=== PATIENT | female | born 1940 | race Caucasian/White ===

== ENCOUNTER 2016-10-29 17:08 | Emergency (ER) | payer MEDICARE, BC ==
[2016-10-29] MEDS ORDERED: SODIUM CHLORIDE 0.9% 1,000 ML IV STA (17:28)
[2016-10-29] MEDS ORDERED: diphenhydrAMINE 50 MG/ML 1 ML VIAL IVP STA (17:29)
[2016-10-29] MEDS ORDERED: LORazepam 2 MG/ML SYRINGE IV STA (17:29)
--- NOTE | 2016-10-29 17:45 | ED ---
General Adult HPI - General Chief complaint: Arrhythmia/Palpitations Stated complaint: irreg heart beat,sick Time Seen by Provider: 10/29/16 17:28 Source: patient, RN notes reviewed, old records reviewed Mode of arrival: ambulatory Limitations: no limitations - History of Present Illness Initial comments: This is a 76-year-old female here for evaluation of palpitations. Patient states she is feeling her heartbeat in her chest. This is been going on for about 3 weeks. Patient's family doctor or doctor's feeling with stress and anxiety and palpitations. Patient was set up for an outpatient stress test earlier today she had an chemical stress test and states that her palpitations have continued dusts coming to the emergency room today. She denies chest pain no shortness of breath is feeling her heart beat irregularly in her chest. She is not taking medication for this. She has no recent fevers cough or congestion , no central portion of bowel pain no nausea vomiting or diarrhea. - Related Data Home Medications Medication Instructions Recorded Confirmed ALPRAZolam [Xanax] 1 mg PO HS 09/06/14 10/29/16 Aspirin 81 mg PO DAILY 09/06/14 10/29/16 Atenolol [Tenormin] 12.5 mg PO DAILY 09/06/14 10/29/16 Diltiazem HCl [Diltiazem ER] 120 mg PO DAILY 09/06/14 10/29/16 Cholecalciferol [Vitamin D3] 1,000 unit PO DAILY 10/29/16 10/29/16 Allergies Allergy/AdvReac Type Severity Reaction Status Date / Time clindamycin HCl Allergy Rash/Hives Verified 10/29/16 18:38 [From Cleocin] clindamycin palmitate HCl Allergy Rash/Hives Verified 10/29/16 18:38 [From Cleocin] clindamycin phosphate Allergy Rash/Hives Verified 10/29/16 18:38 [From Cleocin] Sulfa (Sulfonamide Allergy Rash/Hives Verified 10/29/16 18:38 Antibiotics) Review of Systems ROS Statement: Those systems with pertinent positive or pertinent negative responses have been documented in the HPI. ROS Other: All systems not noted in ROS Statement are negative. Past Medical History Past Medical History: Chest Pain / Angina, Hypertension Additional Past Medical History / Comment(s): irreg heart beat History of Any Multi-Drug Resistant Organisms: None Reported Past Surgical History: Adenoidectomy, Cholecystectomy, Tonsillectomy Additional Past Surgical History / Comment(s): cataracts, right foot, Past Psychological History: No Psychological Hx Reported Smoking Status: Never smoker Past Alcohol Use History: None Reported Past Drug Use History: None Reported General Exam Limitations: no limitations General appearance: alert, in no apparent distress, anxious Head exam: Present: atraumatic, normocephalic, normal inspection Eye exam: Present: normal appearance, PERRL, EOMI. Absent: scleral icterus, conjunctival injection, periorbital swelling ENT exam: Present: normal exam, mucous membranes moist Neck exam: Present: normal inspection. Absent: tenderness, meningismus, lymphadenopathy Respiratory exam: Present: normal lung sounds bilaterally. Absent: respiratory distress, wheezes, rales, rhonchi, stridor Cardiovascular Exam: Present: regular rate, normal rhythm, normal heart sounds. Absent: systolic murmur, diastolic murmur, rubs, gallop, clicks GI/Abdominal exam: Present: soft, normal bowel sounds. Absent: distended, tenderness, guarding, rebound, rigid Extremities exam: Present: normal inspection, full ROM, normal capillary refill. Absent: tenderness, pedal edema, joint swelling, calf tenderness Back exam: Present: normal inspection Neurological exam: Present: alert, oriented X3, CN II-XII intact Psychiatric exam: Present: normal affect, normal mood Skin exam: Present: warm, dry, intact, normal color. Absent: rash Course Vital Signs 10/29/16 10/29/16 10/29/16 17:21 17:39 18:01 Temperature 98.0 F Pulse Rate 78 Pulse Rate [ 76 Right Supine Pulse Oximetery ] Respiratory 18 Rate Blood Pressure 184/82 133/65 O2 Sat by Pulse 98 Oximetry - Reevaluation(s) Reevaluation #1: 10/29/16 18:11 Patient is in no acute distress EKG Findings - EKG Comments: EKG Findings:: EKG shows sinus rhythm with PVCs, rate of 73, WA 144, QRS 80, QTC 429 Medical Decision Making - Medical Decision Making 36 female EEI with palpitations PVCs, patient has no malignant rhythm, stress test today was done in the no abnormalities noted, patient's labwork is normal can be discharged home - Lab Data Result diagrams: 10/29/16 17:40 10/29/16 17:40 Lab Results 10/29/16 10/29/16 10/29/16 Range/Units 17:40 17:40 17:40 WBC 7.0 (3.8-10.6) k/uL RBC 5.18 (3.80-5.40) m/uL Hgb 15.1 (11.4-16.0) gm/dL Hct 45.5 (34.0-46.0) % MCV 87.8 (80.0-100.0) fL MCH 29.2 (25.0-35.0) pg MCHC 33.3 (31.0-37.0) g/dL RDW 13.6 (11.5-15.5) % Plt Count 227 (150-450) k/uL Neutrophils % 68 % Lymphocytes % 21 % Monocytes % 5 % Eosinophils % 3 % Basophils % 0 % Neutrophils # 4.8 (1.3-7.7) k/uL Lymphocytes # 1.5 (1.0-4.8) k/uL Monocytes # 0.4 (0-1.0) k/uL Eosinophils # 0.2 (0-0.7) k/uL Basophils # 0.0 (0-0.2) k/uL Sodium 139 (137-145) mmol/L Potassium 4.2 (3.5-5.1) mmol/L Chloride 101 (98-107) mmol/L Carbon Dioxide 26 (22-30) mmol/L Anion Gap 12 mmol/L BUN 17 (7-17) mg/dL Creatinine 0.71 (0.52-1.04) mg/dL Est GFR (MDRD) Af Amer >60 (>60 ml/min/1.73 sqM) Est GFR (MDRD) Non-Af >60 (>60 ml/min/1.73 sqM) Glucose 96 (74-99) mg/dL Calcium 9.7 (8.4-10.2) mg/dL Phosphorus 4.7 H (2.5-4.5) mg/dL Magnesium 2.2 (1.6-2.3) mg/dL Total Bilirubin 0.8 (0.2-1.3) mg/dL AST 32 (14-36) U/L ALT 34 (9-52) U/L Alkaline Phosphatase 95 (38-126) U/L Total Creatine Kinase 62 (30-135) U/L Total Protein 7.5 (6.3-8.2) g/dL Albumin 4.6 (3.5-5.0) g/dL Disposition Clinical Impression: Palpitations, PVC (premature ventricular contraction) Disposition: HOME SELF-CARE Condition: Fair Instructions: Palpitations (ED) Referrals: Stalin Duong MD [Primary Care Provider] - 1-2 days
[2016-10-29] MEDS ORDERED: METOPROLOL TARTRATE 5 MG/5 ML VIAL IVP STA (17:56)
[2016-10-29 17:58] LABS: Basophils % (A) 0 %; CH 29.6; CHCM 33.9; Eosinophils # (A) 0.2 k/uL (0-0.7); Eosinophils % (A) 3 %; HCT 45.5 % (34.0-46.0); HDW 2.65; HGB 15.1 gm/dL (11.4-16.0); Luc # (Auto) 0.24; Luc % (Auto) 3; Lymphocytes # (A) 1.5 k/uL (1.0-4.8); Lymphocytes % (A) 21 %; MCH 29.2 pg (25.0-35.0); MCHC 33.3 g/dL (31.0-37.0); MCV 87.8 fL (80.0-100.0); Mean Platelet Volume 8.5; Monocytes # (A) 0.4 k/uL (0-1.0); Monocytes % (A) 5 %; Neutrophils # (A) 4.8 k/uL (1.3-7.7); Neutrophils % (A) 68 %; RBC 5.18 m/uL (3.80-5.40); RDW 13.6 % (11.5-15.5); WBC (Perox) 7.02
[2016-10-29 18:09] LABS: ALT 34 U/L (9-52); AST 32 U/L (14-36); Alkaline Phosphatase 95 U/L (38-126); Anion Gap 12 mmol/L; Blood Urea Nitrogen 17 mg/dL (7-17); Calcium 9.7 mg/dL (8.4-10.2); Carbon Dioxide 26 mmol/L (22-30); Chloride 101 mmol/L (98-107); Glucose 96 mg/dL (74-99); Magnesium 2.2 mg/dL (1.6-2.3); Non-African American GFR(MDRD) >60 (>60 ml/min/1.73 sqM); Phosphorous 4.7 mg/dL (2.5-4.5); Potassium 4.2 mmol/L (3.5-5.1); Sodium 139 mmol/L (137-145); Total Bilirubin 0.8 mg/dL (0.2-1.3); Total Protein 7.5 g/dL (6.3-8.2)
[2016-10-29 18:23] LABS: Creatine Kinase 62 U/L (30-135)
[2016-10-29 18:36] LABS: Creatine Kinase MB 0.5 ng/mL (0.0-2.4); Troponin I <0.012 ng/mL (0.000-0.034)
[2016-10-29 19:02] VITALS: BP 130/60; PULSE 65; RESP 16; TEMP 97.2
== END 2016-10-29 19:02 | disposition home or self-care (01) ==
LOC: EC 17:08
DX: R00.2 Palpitations (principal); I49.3 Ventricular premature depolarization; I10 Essential (primary) hypertension; F41.9 Anxiety disorder, unspecified; Z79.82 Long term (current) use of aspirin; Z79.899 Other long term (current) drug therapy; Z88.1 Allergy status to other antibiotic agents; Z88.2 Allergy status to sulfonamides
CPT/HCPCS: 99285; 96374; 96375; 36415; 80053; 82550; 82553; 83735; 84100; 84484; 85025; J2060; J1200; 93005

== ENCOUNTER 2016-11-01 23:55 | Emergency (ER) | payer MEDICARE, BC ==
[2016-11-02 00:19] VITALS: RESP 18
[2016-11-02 01:11] LABS: Basophils % (A) 0 %; CH 28.9; Eosinophils # (A) 0.2 k/uL (0-0.7); Eosinophils % (A) 2 %; HCT 44.3 % (34.0-46.0); HDW 2.61; HGB 14.4 gm/dL (11.4-16.0); Luc # (Auto) 0.26; Luc % (Auto) 3; Lymphocytes # (A) 1.6 k/uL (1.0-4.8); Lymphocytes % (A) 20 %; MCH 28.7 pg (25.0-35.0); MCHC 32.5 g/dL (31.0-37.0); MCV 88.1 fL (80.0-100.0); Mean Platelet Volume 7.4; Monocytes # (A) 0.4 k/uL (0-1.0); Monocytes % (A) 5 %; Neutrophils # (A) 5.7 k/uL (1.3-7.7); Neutrophils % (A) 70 %; RBC 5.03 m/uL (3.80-5.40); RDW 13.4 % (11.5-15.5); WBC 8.2 k/uL (3.8-10.6); WBC (Perox) 8.49
[2016-11-02 01:19] LABS: ALT 29 U/L (9-52); AST 30 U/L (14-36); Alkaline Phosphatase 85 U/L (38-126); Anion Gap 10 mmol/L; Blood Urea Nitrogen 18 mg/dL (7-17); Calcium 8.9 mg/dL (8.4-10.2); Carbon Dioxide 25 mmol/L (22-30); Chloride 104 mmol/L (98-107); Glucose 104 mg/dL (74-99); Non-African American GFR(MDRD) >60 (>60 ml/min/1.73 sqM); Potassium 3.9 mmol/L (3.5-5.1); Sodium 139 mmol/L (137-145); Total Bilirubin 0.7 mg/dL (0.2-1.3)
[2016-11-02 01:22] LABS: Partial Thromboplastin Time 25.1 sec (22.0-30.0); Prothrombin Time 10.5 sec (9.0-12.0)
--- NOTE | 2016-11-02 02:20 | XR ---
EXAM: XR Chest, 2 Views. CLINICAL HISTORY: Difficulty breathing TECHNIQUE: Frontal and lateral views of the chest. COMPARISON: 07/29/2013 FINDINGS: Lungs: Bilateral pulmonary hyperinflation. Linear density in the lateral left lung base is compatible with atelectasis or scar. The lungs are otherwise clear. Pleural space: Unremarkable. No pneumothorax. Heart: Stable cardiomediastinal silhouette. Mediastinum: See above. Bones/joints: No acute osseous abnormality. IMPRESSION: No acute cardiopulmonary process.
--- NOTE | 2016-11-02 02:24 | ED ---
Recheck HPI - General Chief Complaint: Recheck/Abnormal Lab/Rx Stated Complaint: Revisit-Feet Swelling Time Seen by Provider: 11/02/16 00:36 Source: patient Mode of arrival: ambulatory Limitations: no limitations - History of Present Illness Initial Comments: This patient is a 76-year-old woman who presents because her blood pressure was elevated at home. The patient states that she had been having some irregular heartbeat last week, gone to see her dashboard developer and had a stress test done last week. She is to follow-up on for the results. The patient however had noticed that her blood pressure was high at home tonight and she retook it and it was still high and she felt she should be evaluated. In the review of systems, the patient notes she has been having some bilateral leg swelling going on for a week to 2 and also some abdominal bloating. Complaint: other -: hour(s) Initial Visit For: other Returns Today for: other Symptoms Since Prior Visit: no new symptoms - Related Data Home Medications Medication Instructions Recorded Confirmed ALPRAZolam [Xanax] 1 mg PO HS 09/06/14 11/02/16 Aspirin 81 mg PO DAILY 09/06/14 11/02/16 Atenolol [Tenormin] 12.5 mg PO DAILY 09/06/14 11/02/16 Diltiazem HCl [Diltiazem ER] 120 mg PO DAILY 09/06/14 11/02/16 Cholecalciferol [Vitamin D3] 1,000 unit PO DAILY 10/29/16 11/02/16 Allergies Allergy/AdvReac Type Severity Reaction Status Date / Time clindamycin HCl Allergy Rash/Hives Verified 11/02/16 00:19 [From Cleocin] clindamycin palmitate HCl Allergy Rash/Hives Verified 11/02/16 00:19 [From Cleocin] clindamycin phosphate Allergy Rash/Hives Verified 11/02/16 00:19 [From Cleocin] Sulfa (Sulfonamide Allergy Rash/Hives Verified 11/02/16 00:19 Antibiotics) Review of Systems ROS Statement: Those systems with pertinent positive or pertinent negative responses have been documented in the HPI. ROS Other: All systems not noted in ROS Statement are negative. Constitutional: Denies: fever, chills, weakness Respiratory: Denies: cough, dyspnea Cardiovascular: Reports: edema. Denies: chest pain, palpitations, orthopnea, syncope Gastrointestinal: Reports: other (Bloating). Denies: abdominal pain, vomiting, diarrhea Genitourinary: Denies: dysuria, frequency, hematuria Musculoskeletal: Denies: back pain Skin: Denies: rash Neurological: Denies: headache, weakness Psychiatric: Reports: anxiety Past Medical History Past Medical History: Chest Pain / Angina, Hypertension Additional Past Medical History / Comment(s): irreg heart beat History of Any Multi-Drug Resistant Organisms: None Reported Past Surgical History: Adenoidectomy, Cholecystectomy, Tonsillectomy Additional Past Surgical History / Comment(s): cataracts, right foot, Past Psychological History: No Psychological Hx Reported Smoking Status: Never smoker Past Alcohol Use History: None Reported Past Drug Use History: None Reported General Exam Limitations: no limitations General appearance: alert, in no apparent distress Head exam: Present: atraumatic, normocephalic Eye exam: Present: normal appearance. Absent: scleral icterus, conjunctival injection Neck exam: Present: normal inspection, full ROM Respiratory exam: Present: normal lung sounds bilaterally. Absent: respiratory distress, wheezes, rales, rhonchi, stridor Cardiovascular Exam: Present: regular rate, normal rhythm, normal heart sounds. Absent: systolic murmur, diastolic murmur, rubs, gallop GI/Abdominal exam: Present: soft. Absent: distended, tenderness, guarding, rebound Extremities exam: Present: normal inspection, normal capillary refill. Absent: pedal edema, calf tenderness Back exam: Present: normal inspection. Absent: CVA tenderness (R), CVA tenderness (L) Neurological exam: Present: alert Skin exam: Present: warm, dry, intact, normal color. Absent: rash Course Vital Signs 11/02/16 11/02/16 11/02/16 00:12 01:47 02:07 Temperature 97.6 F Pulse Rate 91 85 71 Respiratory 18 18 18 Rate Blood Pressure 189/90 134/59 127/56 O2 Sat by Pulse 96 96 97 Oximetry 11/02/16 02:47 Temperature 96.9 F L Pulse Rate 72 Respiratory 18 Rate Blood Pressure 126/59 O2 Sat by Pulse 97 Oximetry Medical Decision Making - Lab Data Result diagrams: 11/02/16 01:03 11/02/16 01:03 Lab Results 11/02/16 11/02/16 11/02/16 Range/Units 01:03 01:03 01:03 WBC 8.2 (3.8-10.6) k/uL RBC 5.03 (3.80-5.40) m/uL Hgb 14.4 (11.4-16.0) gm/dL Hct 44.3 (34.0-46.0) % MCV 88.1 (80.0-100.0) fL MCH 28.7 (25.0-35.0) pg MCHC 32.5 (31.0-37.0) g/dL RDW 13.4 (11.5-15.5) % Plt Count 208 (150-450) k/uL Neutrophils % 70 % Lymphocytes % 20 % Monocytes % 5 % Eosinophils % 2 % Basophils % 0 % Neutrophils # 5.7 (1.3-7.7) k/uL Lymphocytes # 1.6 (1.0-4.8) k/uL Monocytes # 0.4 (0-1.0) k/uL Eosinophils # 0.2 (0-0.7) k/uL Basophils # 0.0 (0-0.2) k/uL PT 10.5 (9.0-12.0) sec INR 1.0 (<1.1) APTT 25.1 (22.0-30.0) sec D-Dimer <0.17 (<0.60) mg/L FEU Sodium 139 (137-145) mmol/L Potassium 3.9 (3.5-5.1) mmol/L Chloride 104 (98-107) mmol/L Carbon Dioxide 25 (22-30) mmol/L Anion Gap 10 mmol/L BUN 18 H (7-17) mg/dL Creatinine 0.69 (0.52-1.04) mg/dL Est GFR (MDRD) Af Amer >60 (>60 ml/min/1.73 sqM) Est GFR (MDRD) Non-Af >60 (>60 ml/min/1.73 sqM) Glucose 104 H (74-99) mg/dL Calcium 8.9 (8.4-10.2) mg/dL Total Bilirubin 0.7 (0.2-1.3) mg/dL AST 30 (14-36) U/L ALT 29 (9-52) U/L Alkaline Phosphatase 85 (38-126) U/L Troponin I (0.000-0.034) ng/mL NT-Pro-B Natriuret Pep pg/mL Total Protein 7.0 (6.3-8.2) g/dL Albumin 4.0 (3.5-5.0) g/dL 11/02/16 11/02/16 Range/Units 01:03 01:03 WBC (3.8-10.6) k/uL RBC (3.80-5.40) m/uL Hgb (11.4-16.0) gm/dL Hct (34.0-46.0) % MCV (80.0-100.0) fL MCH (25.0-35.0) pg MCHC (31.0-37.0) g/dL RDW (11.5-15.5) % Plt Count (150-450) k/uL Neutrophils % % Lymphocytes % % Monocytes % % Eosinophils % % Basophils % % Neutrophils # (1.3-7.7) k/uL Lymphocytes # (1.0-4.8) k/uL Monocytes # (0-1.0) k/uL Eosinophils # (0-0.7) k/uL Basophils # (0-0.2) k/uL PT (9.0-12.0) sec INR (<1.1) APTT (22.0-30.0) sec D-Dimer (<0.60) mg/L FEU Sodium (137-145) mmol/L Potassium (3.5-5.1) mmol/L Chloride (98-107) mmol/L Carbon Dioxide (22-30) mmol/L Anion Gap mmol/L BUN (7-17) mg/dL Creatinine (0.52-1.04) mg/dL Est GFR (MDRD) Af Amer (>60 ml/min/1.73 sqM) Est GFR (MDRD) Non-Af (>60 ml/min/1.73 sqM) Glucose (74-99) mg/dL Calcium (8.4-10.2) mg/dL Total Bilirubin (0.2-1.3) mg/dL AST (14-36) U/L ALT (9-52) U/L Alkaline Phosphatase (38-126) U/L Troponin I <0.012 (0.000-0.034) ng/mL NT-Pro-B Natriuret Pep 472 pg/mL Total Protein (6.3-8.2) g/dL Albumin (3.5-5.0) g/dL - EKG Data -: EKG Interpreted by Me EKG shows normal: sinus rhythm, axis (Normal), intervals (Normal), QRS complexes (Normal) Rate: normal (Rate 75 bpm) Interpretation: nonspecific ST-T wave changes Disposition Clinical Impression: Hypertension Disposition: HOME SELF-CARE Condition: Fair Instructions: Hypertension (ED) Referrals: Stalin Duong MD [Primary Care Provider] - 1-2 days
[2016-11-02 02:48] VITALS: BP 126/59; PULSE 72; TEMP 96.9
== END 2016-11-02 02:47 | disposition home or self-care (01) ==
LOC: EC 23:55
DX: I10 Essential (primary) hypertension (principal); F41.9 Anxiety disorder, unspecified; Z88.2 Allergy status to sulfonamides; Z88.1 Allergy status to other antibiotic agents; Z79.82 Long term (current) use of aspirin; Z79.899 Other long term (current) drug therapy
CPT/HCPCS: 36415; 71020; 80053; 83880; 84484; 85025; 85379; 85610; 85730; 93005; 99284

== ENCOUNTER 2017-03-08 17:20 | Observation (INO) | payer MEDICARE, BC ==
[2017-03-08] MEDS ORDERED: LABETALOL 5 MG/ML VIAL MDV IVP STA (17:56)
--- NOTE | 2017-03-08 18:16 | ED ---
General Adult HPI - General Chief complaint: Chest Pain Stated complaint: Intermittent CHest Pain Time Seen by Provider: 03/08/17 17:46 Source: patient, RN notes reviewed Mode of arrival: ambulatory Limitations: no limitations - History of Present Illness Initial comments: Patient 76-year-old female who presents emergency room today with a chief complaint of chest pain that began yesterday. She does admit that she's had 2 episodes of chest pain one earlier today just approximately 2 hours ago. She describes it as a aching type pain that she rates a 3/10 located in the middle of her chest. Denies any radiation. States that she believes she was up just doing regular housework when it started. She states she sat down and within 10 minutes it had gone away. She admits to a similar episode that occurred yesterday. She does admit that she has also had some bloating in her abdomen and feeling that she's been burping more. Patient denies any other complaints or associated symptoms at this time. Patient denies any recent fever, chills, shortness of breath, chest pain, back pain, abdominal pain, nausea or vomiting, numbness or tingling, dysuria or hematuria, constipation or diarrhea, headaches or visual changes, or any other complaints. - Related Data Home Medications Medication Instructions Recorded Confirmed ALPRAZolam [Xanax] 1 mg PO HS 09/06/14 03/08/17 Aspirin 81 mg PO DAILY 09/06/14 03/08/17 Diltiazem HCl [Diltiazem ER] 120 mg PO DAILY 09/06/14 03/08/17 Cholecalciferol [Vitamin D3] 1,000 unit PO DAILY 10/29/16 03/08/17 Allergies Allergy/AdvReac Type Severity Reaction Status Date / Time clindamycin HCl Allergy Rash/Hives Verified 03/08/17 17:42 [From Cleocin] clindamycin palmitate HCl Allergy Rash/Hives Verified 03/08/17 17:42 [From Cleocin] clindamycin phosphate Allergy Rash/Hives Verified 03/08/17 17:42 [From Cleocin] Sulfa (Sulfonamide Allergy Rash/Hives Verified 03/08/17 18:09 Antibiotics) Review of Systems ROS Statement: Those systems with pertinent positive or pertinent negative responses have been documented in the HPI. ROS Other: All systems not noted in ROS Statement are negative. Past Medical History Past Medical History: Chest Pain / Angina, Hypertension Additional Past Medical History / Comment(s): irreg heart beat History of Any Multi-Drug Resistant Organisms: None Reported Past Surgical History: Adenoidectomy, Cholecystectomy, Tonsillectomy Additional Past Surgical History / Comment(s): cataracts, right foot, Past Psychological History: Anxiety Smoking Status: Never smoker Past Alcohol Use History: None Reported Past Drug Use History: None Reported General Exam Limitations: no limitations Course Vital Signs 03/08/17 03/08/17 17:38 18:07 Temperature 98.3 F Pulse Rate 85 76 Respiratory 18 19 Rate Blood Pressure 193/80 166/76 O2 Sat by Pulse 95 96 Oximetry Medical Decision Making - Medical Decision Making Patient's EKG shows normal sinus rhythm. Labs reviewed and negative cardiac enzymes. Patient does admit to chest pain with exertion. Will be admitted to the hospital for serial enzymes. Patient wear the plan states understanding. - Lab Data Result diagrams: 03/08/17 18:01 03/08/17 18:01 Lab Results 03/08/17 03/08/17 03/08/17 Range/Units 18:01 18:01 18:01 WBC 6.9 (3.8-10.6) k/uL RBC 5.28 (3.80-5.40) m/uL Hgb 15.4 (11.4-16.0) gm/dL Hct 45.3 (34.0-46.0) % MCV 85.8 (80.0-100.0) fL MCH 29.2 (25.0-35.0) pg MCHC 34.1 (31.0-37.0) g/dL RDW 13.1 (11.5-15.5) % Plt Count 242 (150-450) k/uL Neutrophils % 69 % Lymphocytes % 19 % Monocytes % 5 % Eosinophils % 4 % Basophils % 0 % Neutrophils # 4.8 (1.3-7.7) k/uL Lymphocytes # 1.3 (1.0-4.8) k/uL Monocytes # 0.4 (0-1.0) k/uL Eosinophils # 0.3 (0-0.7) k/uL Basophils # 0.0 (0-0.2) k/uL PT (9.0-12.0) sec INR (<1.2) APTT (22.0-30.0) sec Sodium 139 (137-145) mmol/L Potassium 4.4 (3.5-5.1) mmol/L Chloride 104 (98-107) mmol/L Carbon Dioxide 26 (22-30) mmol/L Anion Gap 9 mmol/L BUN 16 (7-17) mg/dL Creatinine 0.69 (0.52-1.04) mg/dL Est GFR (MDRD) Af Amer >60 (>60 ml/min/1.73 sqM) Est GFR (MDRD) Non-Af >60 (>60 ml/min/1.73 sqM) Glucose 82 (74-99) mg/dL Calcium 9.3 (8.4-10.2) mg/dL Magnesium 2.2 (1.6-2.3) mg/dL Total Bilirubin 0.8 (0.2-1.3) mg/dL AST 32 (14-36) U/L ALT 33 (9-52) U/L Alkaline Phosphatase 90 (38-126) U/L Total Creatine Kinase 62 (30-135) U/L CK-MB (CK-2) 0.5 (0.0-2.4) ng/mL CK-MB (CK-2) Rel Index 0.8 Troponin I <0.012 (0.000-0.034) ng/mL Total Protein 7.1 (6.3-8.2) g/dL Albumin 4.4 (3.5-5.0) g/dL 03/08/17 Range/Units 18:01 WBC (3.8-10.6) k/uL RBC (3.80-5.40) m/uL Hgb (11.4-16.0) gm/dL Hct (34.0-46.0) % MCV (80.0-100.0) fL MCH (25.0-35.0) pg MCHC (31.0-37.0) g/dL RDW (11.5-15.5) % Plt Count (150-450) k/uL Neutrophils % % Lymphocytes % % Monocytes % % Eosinophils % % Basophils % % Neutrophils # (1.3-7.7) k/uL Lymphocytes # (1.0-4.8) k/uL Monocytes # (0-1.0) k/uL Eosinophils # (0-0.7) k/uL Basophils # (0-0.2) k/uL PT 10.4 (9.0-12.0) sec INR 1.0 (<1.2) APTT 25.1 (22.0-30.0) sec Sodium (137-145) mmol/L Potassium (3.5-5.1) mmol/L Chloride (98-107) mmol/L Carbon Dioxide (22-30) mmol/L Anion Gap mmol/L BUN (7-17) mg/dL Creatinine (0.52-1.04) mg/dL Est GFR (MDRD) Af Amer (>60 ml/min/1.73 sqM) Est GFR (MDRD) Non-Af (>60 ml/min/1.73 sqM) Glucose (74-99) mg/dL Calcium (8.4-10.2) mg/dL Magnesium (1.6-2.3) mg/dL Total Bilirubin (0.2-1.3) mg/dL AST (14-36) U/L ALT (9-52) U/L Alkaline Phosphatase (38-126) U/L Total Creatine Kinase (30-135) U/L CK-MB (CK-2) (0.0-2.4) ng/mL CK-MB (CK-2) Rel Index Troponin I (0.000-0.034) ng/mL Total Protein (6.3-8.2) g/dL Albumin (3.5-5.0) g/dL Disposition Clinical Impression: Chest pain Disposition: ADMITTED IP TO THIS [facility] Condition: Stable Referrals: Stalin Duong MD [Primary Care Provider] - 1-2 days Time of Disposition: 19:15
[2017-03-08 18:17] LABS: Basophils % (A) 0 %; CH 28.6; CHCM 33.5; Eosinophils # (A) 0.3 k/uL (0-0.7); Eosinophils % (A) 4 %; HCT 45.3 % (34.0-46.0); HDW 2.61; HGB 15.4 gm/dL (11.4-16.0); Luc # (Auto) 0.18; Luc % (Auto) 3; Lymphocytes # (A) 1.3 k/uL (1.0-4.8); Lymphocytes % (A) 19 %; MCH 29.2 pg (25.0-35.0); MCHC 34.1 g/dL (31.0-37.0); MCV 85.8 fL (80.0-100.0); Mean Platelet Volume 7.8; Monocytes # (A) 0.4 k/uL (0-1.0); Monocytes % (A) 5 %; Neutrophils # (A) 4.8 k/uL (1.3-7.7); Neutrophils % (A) 69 %; RBC 5.28 m/uL (3.80-5.40); RDW 13.1 % (11.5-15.5); WBC 6.9 k/uL (3.8-10.6); WBC (Perox) 6.42
[2017-03-08 18:22] LABS: ALT 33 U/L (9-52); AST 32 U/L (14-36); Alkaline Phosphatase 90 U/L (38-126); Anion Gap 9 mmol/L; Blood Urea Nitrogen 16 mg/dL (7-17); Calcium 9.3 mg/dL (8.4-10.2); Carbon Dioxide 26 mmol/L (22-30); Chloride 104 mmol/L (98-107); Glucose 82 mg/dL (74-99); Magnesium 2.2 mg/dL (1.6-2.3); Non-African American GFR(MDRD) >60 (>60 ml/min/1.73 sqM); Potassium 4.4 mmol/L (3.5-5.1); Sodium 139 mmol/L (137-145); Total Bilirubin 0.8 mg/dL (0.2-1.3); Total Protein 7.1 g/dL (6.3-8.2)
[2017-03-08 18:23] LABS: Partial Thromboplastin Time 25.1 sec (22.0-30.0); Prothrombin Time 10.4 sec (9.0-12.0)
[2017-03-08 18:30] LABS: Creatine Kinase 62 U/L (30-135)
[2017-03-08 18:44] LABS: Creatine Kinase MB 0.5 ng/mL (0.0-2.4); Troponin I <0.012 ng/mL (0.000-0.034)
--- NOTE | 2017-03-08 19:11 | XR ---
EXAMINATION TYPE: XR chest 2V DATE OF EXAM: 03/08/2017 COMPARISON: Chest x-ray November 02, 2016. HISTORY: Intermittent chest pain. TECHNIQUE: Frontal and lateral views of the chest are obtained. FINDINGS: There is persistent linear scarring or atelectasis in the left lung base. There is new hugo ear atelectasis in the right lung base. The cardiac silhouette size is within normal limits. The os seous structures are somewhat demineralized. Slight underlying S-shaped scoliosis is present. IMPRESSION: Persistent left basilar linear scarring or atelectasis, new patchy right basilar linear atelectasis is felt present..
[2017-03-08] MEDS ORDERED: NITROGLYCERIN SL TABS 0.4 MG TAB SUBLINGUAL PRN (19:17)
[2017-03-08] MEDS ORDERED: SODIUM CHLORIDE 0.9% 1,000 ML IV ONE (19:17)
[2017-03-08 21:05] VITALS: BMI 28.5
[2017-03-08] MEDS ORDERED: ONDANSETRON 4 MG/2 ML VIAL IVP PRN (21:26)
[2017-03-08] MEDS ORDERED: MORPHINE SULFATE 2 MG/ML SYRINGE IVP PRN (21:26)
[2017-03-08] MEDS ORDERED: ALPRAZolam 0.5 MG TAB PO SCH (21:30)
[2017-03-09 00:38] LABS: Creatine Kinase 44 U/L (30-135)
[2017-03-09 00:52] LABS: Creatine Kinase MB 0.4 ng/mL (0.0-2.4); Troponin I <0.012 ng/mL (0.000-0.034)
[2017-03-09 07:31] LABS: Cholesterol 172 mg/dL (<200); HDL Cholesterol 54 mg/dL (40-60)
[2017-03-09 07:44] LABS: Creatine Kinase 41 U/L (30-135)
[2017-03-09 07:56] LABS: Creatine Kinase MB 0.3 ng/mL (0.0-2.4); Troponin I <0.012 ng/mL (0.000-0.034)
--- NOTE | 2017-03-09 08:44 | P.CRDCN ---
History of Present Illness Consult date: 03/09/17 History of present illness: This is a 76-year-old female with history of a mild coronary artery disease and also complaints of palpitations is admitted through the emergency room with complaints of recurrent chest pains. She complains of 2 episodes of chest pain that started in the midsternal area. One episode of pain radiated to the right. The other one radiating to the left. The pains appear to be atypical. Not clearly exertional in nature. Loss of strength any nausea, vomiting or sweating. She denies any shortness of breath. Her EKG showed sinus rhythm without any acute changes. Her cardiac enzymes are negative. Patient had a nuclear stress test in October of this year which showed a mild defect in the lateral wall which is felt to be an artifact. Patient had a cardiac catheter is in the past and was found mild ectatic changes. Given her atypical nature of the pain and recent negative stress test, no further evaluation is sized at this time. Patient could be discharged home. Follow-up in the office in one week. Review of Systems REVIEW OF SYSTEMS: CONSTITUTIONAL:. Patient is doing well. No complaints of fever or chills EYES: Denies diplopia, blurring of vision EARS, NOSE, MOUTH, THROAT: Denies headaches, denies sore throat. CARDIOVASCULAR: As per HPI RESPIRATORY: Denies shortness of breath, denies cough. GASTROINTESTINAL: Denies change in appetite, denies abdominal pain, denies diarrhea GENITOURINARY: Denies hematuria, denies infections. MUSKULOSKELETAL: Denies pain, denies swelling. Denies any cramps or claudication INTEGUMENTARY: Denies rash, denies eczema. NEUROLOGICAL: Denies focal weakness, or visual disturbance. Denies any dizziness or syncope PSYCHIATRIC: Denies anxiety, denies depression. HEMATOLOGIC/LYMPHATIC: Denies any bleeding, denies enlarged lymph nodes. Past Medical History Past Medical History: Chest Pain / Angina, Hypertension Additional Past Medical History / Comment(s): irreg heart beat History of Any Multi-Drug Resistant Organisms: None Reported Past Surgical History: Adenoidectomy, Cholecystectomy, Tonsillectomy Additional Past Surgical History / Comment(s): cataracts, right foot due to breaking, Past Anesthesia/Blood Transfusion Reactions: No Reported Reaction Past Psychological History: Anxiety Smoking Status: Never smoker Past Alcohol Use History: None Reported Past Drug Use History: None Reported - Past Family History Father Family Medical History: Myocardial Infarction ([place]) Additional Family Medical History / Comment(s): Bad hip, enlarged heart Mother Family Medical History: COPD Additional Family Medical History / Comment(s): PNA Medications and Allergies Home Medications Medication Instructions Recorded Confirmed Type ALPRAZolam [Xanax] 1 mg PO HS 09/06/14 03/08/17 History Aspirin 81 mg PO DAILY 09/06/14 03/08/17 History Diltiazem HCl [Diltiazem ER] 120 mg PO DAILY 09/06/14 03/08/17 History Cholecalciferol [Vitamin D3] 1,000 unit PO DAILY 10/29/16 03/08/17 History Allergies Allergy/AdvReac Type Severity Reaction Status Date / Time clindamycin HCl Allergy Rash/Hives Verified 03/08/17 20:58 [From Cleocin] clindamycin palmitate HCl Allergy Rash/Hives Verified 03/08/17 20:58 [From Cleocin] clindamycin phosphate Allergy Rash/Hives Verified 03/08/17 20:58 [From Cleocin] Sulfa (Sulfonamide Allergy Rash/Hives Verified 03/08/17 20:58 Antibiotics) Physical Exam Vitals: Vital Signs Temp Pulse Pulse Resp BP BP Pulse Ox 03/09/17 08:02 96 03/09/17 08:00 97.5 F L 67 16 126/62 96 03/09/17 04:00 97.8 F 68 16 118/61 96 03/09/17 00:00 16 03/08/17 23:51 97.8 F 77 16 127/67 94 L 03/08/17 22:04 16 03/08/17 20:31 97.6 F 77 16 175/73 98 03/08/17 19:51 169/78 03/08/17 18:07 76 19 166/76 96 03/08/17 17:38 98.3 F 85 18 193/80 95 Intake and Output 03/08/17 03/09/17 03/09/17 22:59 06:59 14:59 Other: # Voids 1 Weight 68.4 kg GENERAL EXAM: Patient is alert and oriented and doesn't appear to be in any acute distress HEENT: Normocephalic. Normal reaction of pupils, equal size, normal range of extraocular motion. No erythema or exudates in the throat. NECK: No masses, no nuchal rigidity. CHEST: No chest wall deformity. LUNGS: Equal air entry with no crackles or wheeze. HEART: S1 and S2 normal with no audible mumurs or gallops. Regular rhythm, femorals equal on both sides.. ABDOMEN: No hepatosplenomegaly, normal bowel sounds, no guarding or rigidity. SKIN: No rashes CENTRAL NERVOUS SYSTEM: No focal deficits. EXTREMITIES: No cyanosis, clubbing or edema. Results 03/08/17 18:01 03/08/17 18:01 Cardiac Enzymes 03/08/17 03/08/17 03/08/17 Range/Units 18:01 18:01 23:41 AST 32 (14-36) U/L CK-MB (CK-2) 0.5 0.4 (0.0-2.4) ng/mL Troponin I <0.012 <0.012 (0.000-0.034) ng/mL 03/09/17 Range/Units 06:37 AST (14-36) U/L CK-MB (CK-2) 0.3 (0.0-2.4) ng/mL Troponin I <0.012 (0.000-0.034) ng/mL Coagulation 03/08/17 Range/Units 18:01 PT 10.4 (9.0-12.0) sec APTT 25.1 (22.0-30.0) sec Lipids 03/09/17 Range/Units 06:37 Triglycerides 100 (<150) mg/dL Cholesterol 172 (<200) mg/dL HDL Cholesterol 54 (40-60) mg/dL CBC 03/08/17 Range/Units 18:01 WBC 6.9 (3.8-10.6) k/uL RBC 5.28 (3.80-5.40) m/uL Hgb 15.4 (11.4-16.0) gm/dL Hct 45.3 (34.0-46.0) % Plt Count 242 (150-450) k/uL Comprehensive Metabolic Panel 03/08/17 Range/Units 18:01 Sodium 139 (137-145) mmol/L Potassium 4.4 (3.5-5.1) mmol/L Chloride 104 (98-107) mmol/L Carbon Dioxide 26 (22-30) mmol/L BUN 16 (7-17) mg/dL Creatinine 0.69 (0.52-1.04) mg/dL Glucose 82 (74-99) mg/dL Calcium 9.3 (8.4-10.2) mg/dL AST 32 (14-36) U/L ALT 33 (9-52) U/L Alkaline Phosphatase 90 (38-126) U/L Total Protein 7.1 (6.3-8.2) g/dL Albumin 4.4 (3.5-5.0) g/dL Current Medications Generic Name Dose Route Start Last Admin Trade Name Freq PRN Reason Stop Dose Admin Alprazolam 1 mg 03/08/17 21:30 03/08/17 21:41 Xanax PO 1 mg HS YAMILET Administration Aspirin 325 mg 03/09/17 09:00 Aspirin PO DAILY [facility] Cholecalciferol 1,000 unit 03/09/17 09:00 Vitamin D3 PO DAILY YAMILET Diltiazem HCl 120 mg 03/09/17 09:00 Cardizem Cd PO DAILY [facility] Sodium Chloride 1,000 mls @ 20 mls/hr 03/08/17 19:17 03/08/17 19:55 Saline 0.9% IV 03/09/17 19:16 20 mls/hr .Q24H ONE Administration Morphine Sulfate 2 mg 03/08/17 21:26 Morphine Sulfate (Inj) IVP Q4H PRN Pain/Discomfort Nitroglycerin 0.4 mg 03/08/17 19:17 Nitrostat SUBLINGUAL Q5M PRN Chest Pain Ondansetron HCl 4 mg 03/08/17 21:26 Zofran IVP Q6HR PRN Nausea And Vomiting Intake and Output 03/08/17 03/09/17 03/09/17 22:59 06:59 14:59 Other: # Voids 1 Weight 68.4 kg 03/08/17 18:01 03/08/17 18:01 EKG Interpretations (text) Sinus rhythm Assessment and Plan (1) Chest pain Status: Acute (2) Palpitations Status: Acute (3) Dyslipidemia Status: Acute Plan: Patient's chest pains are atypical. Cardiac enzymes are negative. Recent stress test did not reveal any significant ischemia. Patient could be discharged home. Follow-up in the office in one or 2 weeks
[2017-03-09] MEDS ORDERED: DILTIAZEM CD 120 MG CAP.ER.24H PO SCH (09:00)
[2017-03-09] MEDS ORDERED: CHOLECALCIFEROL 1,000 UNIT TAB PO SCH (09:00)
[2017-03-09] MEDS ORDERED: ASPIRIN 325 MG TAB PO SCH (09:00)
--- NOTE | 2017-03-09 09:02 | P.HPIM ---
History of Present Illness H&P Date: 03/09/17 Chief Complaint: Chest pain Patient is a 76-year-old female well known to my practice who presented to [facility] emergency room with a chief complaint of chest. Patient describes 2 episodes of chest pain in the last 2 days, each episode lasted a few minutes and resolved spontaneously, patient describes pain in the lower sternal area, and one episode the pain radiated to the left in the other episode the pain radiated to the right, there was no nausea or vomiting, sweating or shortness of breath during these episodes. Patient had known history of mild coronary artery disease she had a cardiac catheterization several years ago she also had a [facility] October [facility] this [facility]. Patient also has known history of palpitation she was maintained on Cardizem and atenolol she was having low blood pressure and atenolol was recently discontinued by her certified low vision therapist Patient is admitted to 24-hour observation, serial EKGs and cardiac enzymes were ordered. Past Medical History Past Medical History: Chest Pain / Angina, Hypertension Additional Past Medical History / Comment(s): irreg heart beat History of Any Multi-Drug Resistant Organisms: None Reported Past Surgical History: Adenoidectomy, Cholecystectomy, Tonsillectomy Additional Past Surgical History / Comment(s): cataracts, right foot due to breaking, Past Anesthesia/Blood Transfusion Reactions: No Reported Reaction Past Psychological History: Anxiety Smoking Status: Never smoker Past Alcohol Use History: None Reported Past Drug Use History: None Reported - Past Family History Father Family Medical History: Myocardial Infarction ([place]) Additional Family Medical History / Comment(s): Bad hip, enlarged heart Mother Family Medical History: COPD Additional Family Medical History / Comment(s): PNA Medications and Allergies Home Medications Medication Instructions Recorded Confirmed Type ALPRAZolam [Xanax] 1 mg PO HS 09/06/14 03/08/17 History Aspirin 81 mg PO DAILY 09/06/14 03/08/17 History Diltiazem HCl [Diltiazem ER] 120 mg PO DAILY 09/06/14 03/08/17 History Cholecalciferol [Vitamin D3] 1,000 unit PO DAILY 10/29/16 03/08/17 History Allergies Allergy/AdvReac Type Severity Reaction Status Date / Time clindamycin HCl Allergy Rash/Hives Verified 03/08/17 20:58 [From Cleocin] clindamycin palmitate HCl Allergy Rash/Hives Verified 03/08/17 20:58 [From Cleocin] clindamycin phosphate Allergy Rash/Hives Verified 03/08/17 20:58 [From Cleocin] Sulfa (Sulfonamide Allergy Rash/Hives Verified 03/08/17 20:58 Antibiotics) Physical Exam Vitals: Vital Signs Temp Pulse Pulse Resp BP BP Pulse Ox 03/09/17 08:02 96 03/09/17 08:00 97.5 F L 67 16 126/62 96 03/09/17 04:00 97.8 F 68 16 118/61 96 03/09/17 00:00 16 03/08/17 23:51 97.8 F 77 16 127/67 94 L 03/08/17 22:04 16 03/08/17 20:31 97.6 F 77 16 175/73 98 03/08/17 19:51 169/78 03/08/17 18:07 76 19 166/76 96 03/08/17 17:38 98.3 F 85 18 193/80 95 Intake and Output 03/08/17 03/09/17 03/09/17 22:59 06:59 14:59 Other: # Voids 1 Weight 68.4 kg In general patient is alert and oriented 3 in no apparent distress HEENT head normocephalic and atraumatic Neck is supple no JVD no goiter no lymphadenopathy Chest exam reveals a few scattered crackles no wheezing Cardiac exam reveals regular heart sounds S1 and S2 no gallops no murmurs Abdomen is soft nontender no organomegaly Extremity exam reveals no edema no cyanosis or clubbing Results CBC & Chem 7: 03/08/17 18:01 03/08/17 18:01 Thrombosis Risk Factor Assmnt - Choose All That Apply Each Risk Factor Represents 2 Points: Age 61-74 years Thrombosis Risk Factor Assessment Total Risk Factor Score: 2 Thrombosis Risk Factor Assessment Level: Low Risk Assessment and Plan Plan: #1 Two episodes of chest pain, so far no evidence of myocardial infarction cardiology consultation has been requested. #2 hypertension maintained on Cardizem #3 previous episodes of palpitation patient was maintained on atenolol which was recently discontinued by cardiology #4 abdominal discomfort was constant burping per patient At this time continue cardiac monitoring, will also check d-dimer and check abdominal ultrasound Will follow this afternoon if all testing are negative possible discharge home this afternoon
--- NOTE | 2017-03-09 11:55 | US ---
EXAMINATION TYPE: US abdomen complete DATE OF EXAM: 03/09/2017 COMPARISON: Correlation CT 01/31/2013. CLINICAL HISTORY: 76-year-old female epigastric pain, burping. Abdominal discomfort, cholecystectomy . TECHNIQUE: Multiple sonographic images of the abdomen are obtained. FINDINGS: Liver Length: 12.1 cm CBD: 0.5 cm Spleen: 9.0 cm Right Kidney: 10.6 x 5.0 x 4.3 cm Left Kidney: 11.2 x 5.8 x 4.5 cm Pancreas: The main pancreatic duct is upper limits of normal at 2.5 mm. The pancreas appears otherwi se unremarkable. Liver: A couple echogenic, shadowing areas within the liver measuring up to 9 mm seen to correspond to calcifications on prior 01/31/2013 CT. Gallbladder: Surgically absent CBD: wnl Spleen: wnl Right Kidney: No evidence of hydronephrosis. Left Kidney: No evidence of hydronephrosis. Lobulated cortex. Upper IVC: wnl Abd Aorta: visualized portions appear wnl IMPRESSION: 1. Status post cholecystectomy. 2. A couple nonspecific liver calcifications seem to have been present on the 2012 CT as well. 3. The patient's previously described left pelvic cystic lesion is not evaluated on this exam.
[2017-03-09 11:57] VITALS: RESP 18
[2017-03-09 16:19] VITALS: BP 142/71; PULSE 83; TEMP 98.3
--- NOTE | 2017-03-09 17:18 | P.DS ---
Providers Date of admission: 03/08/17 19:07 Expected date of discharge: 03/09/17 Attending physician: Stalin Duong Consults: 03/08/17 19:17 Consult Physician Stat Consulting Provider: Cardiology Cassidy Consult Reason/Comments: chest pain Do you want consulting provider notified?: Yes Primary care physician: Stalin Ad [facility] Course: Diagnoses on discharge: #1 Two episodes of chest pain, myocardial infarction ruled out cardiology consultation was requested. lissa evaluated by cardiology no intervention recommended at this time. #2 hypertension maintained on Cardizem, continue. #3 previous episodes of palpitation patient was maintained on atenolol which was recently discontinued by cardiology. #4 abdominal discomfort abdomen ultrasound done no abnormality found will follow as outpatient patient has refused colonoscopy in the past. I have counseled her today and she is more agreable to proceed. Hospital course: Patient is a 76-year-old female well known to my practice who presented to [facility] emergency room with a chief complaint of chest. Patient describes 2 episodes of chest pain in the last 2 days, each episode lasted a few minutes and resolved spontaneously, patient describes pain in the lower sternal area, and one episode the pain radiated to the left in the other episode the pain radiated to the right, there was no nausea or vomiting, sweating or shortness of breath during these episodes. Patient had known history of mild coronary artery disease she had a cardiac catheterization several years ago she also had a stress test at [facility] in October of this year. Patient also has known history of palpitation she was maintained on Cardizem and atenolol she was having low blood pressure and atenolol was recently discontinued by her substation operator helper generation Patient is admitted to 24-hour observation, serial EKGs and cardiac enzymes were ordered. patient is discharged home on 03/09/2017, will follow in the office in 2-3 days Patient Condition at Discharge: Stable Plan - Discharge Summary New Discharge Prescriptions: No Action Diltiazem HCl [Diltiazem ER] 120 mg PO DAILY Aspirin 81 mg PO DAILY ALPRAZolam [Xanax] 1 mg PO HS Cholecalciferol [Vitamin D3] 1,000 unit PO DAILY Discharge Medication List ALPRAZolam [Xanax] 1 mg PO HS 09/06/14 [History] Aspirin 81 mg PO DAILY 09/06/14 [History] Diltiazem HCl [Diltiazem ER] 120 mg PO DAILY 09/06/14 [History] Cholecalciferol [Vitamin D3] 1,000 unit PO DAILY 10/29/16 [History] Follow up Appointment(s)/Referral(s): Stalin Duong MD [Primary Care Provider] - 1-2 days Cinthia Vasquez MD [STAFF PHYSICIAN] - 1 Week
== END 2017-03-09 17:55 | disposition home or self-care (01) ==
LOC: EC 17:20 → 3OBS 19:07
PROVIDERS: ADMIT Internal Medicine; ATTEND Internal Medicine
DX: R07.89 Other chest pain (principal); R00.2 Palpitations; E78.5 Hyperlipidemia, unspecified; I10 Essential (primary) hypertension; R14.0 Abdominal distension (gaseous); I25.10 Atherosclerotic heart disease of native coronary artery without angina pectoris; Z79.82 Long term (current) use of aspirin; Z79.899 Other long term (current) drug therapy; Z88.2 Allergy status to sulfonamides; Z88.1 Allergy status to other antibiotic agents; F41.9 Anxiety disorder, unspecified; Z82.49 Family history of ischemic heart disease and other diseases of the circulatory system
CPT/HCPCS: 99285; 36415; 94760; 85379; 80061; 80053; 82550 ×2; 82553 ×2; 83735; 84484 ×2; 85025; 85610; 85730; 71020; 76700; G0378 ×2; 93005

== ENCOUNTER → 2017-04-27 | Outpatient (CLI) | payer MEDICARE, BC ==
[2017-04-27 16:51] LABS: CH 29.3; CHCM 33.5; HCT 44.7 % (34.0-46.0); HDW 2.61; HGB 14.8 gm/dL (11.4-16.0); MCH 29.2 pg (25.0-35.0); MCHC 33.2 g/dL (31.0-37.0); MCV 87.9 fL (80.0-100.0); Mean Platelet Volume 7.8; RBC 5.08 m/uL (3.80-5.40); RDW 13.9 % (11.5-15.5)
[2017-04-27 17:07] LABS: Anion Gap 10 mmol/L; Blood Urea Nitrogen 12 mg/dL (7-17); Carbon Dioxide 28 mmol/L (22-30); Chloride 103 mmol/L (98-107); Non-African American GFR(MDRD) >60 (>60 ml/min/1.73 sqM); Potassium 4.3 mmol/L (3.5-5.1); Sodium 141 mmol/L (137-145)
== END | disposition home or self-care (01) ==
LOC: LABWHC1 16:35
PROVIDERS: ATTEND Internal Medicine Cardiovascular Disease
DX: Z01.812 Encounter for preprocedural laboratory examination (principal); I25.10 Atherosclerotic heart disease of native coronary artery without angina pectoris
CPT/HCPCS: 36415; 80051; 82565; 84520; 85027

== ENCOUNTER 2017-04-29 07:57 | Day surgery (SDC) | payer MEDICARE, BC ==
[~2017-04-29 07:57] MED LIST: ALPRAZolam 0.25 MG TAB PO PRN; ALPRAZolam 0.5 MG TAB PO PRN; ASPIRIN 325 MG TAB PO STA; ATORVASTATIN 80 MG TAB PO STA; NITROGLYCERIN SL TABS 0.4 MG TAB SUBLINGUAL PRN; SODIUM CHLORIDE 0.9% 1,000 ML in EMPTY BAG 1 BAG IV ONE
[2017-04-29 08:30] VITALS: RESP 16; TEMP 98.3
[2017-04-29] MEDS ORDERED: LIDOCAINE 2% INJ 20 MG/ML (20 ML MDV) ONE (08:55)
[2017-04-29] MEDS ORDERED: MIDAZOLAM 2 MG/2 ML VIAL ONE (08:56)
[2017-04-29] MEDS ORDERED: diphenhydrAMINE 50 MG/ML 1 ML VIAL ONE (08:57)
[2017-04-29] MEDS ORDERED: fentaNYL (PF) 50 MCG/ML 2 ML AMP ONE (08:57)
[2017-04-29] MEDS ORDERED: MIDAZOLAM 2 MG/2 ML VIAL IVP ONE (09:11)
[2017-04-29] MEDS ORDERED: fentaNYL (PF) 50 MCG/ML 2 ML AMP IVP ONE (09:11)
[2017-04-29] MEDS ORDERED: diphenhydrAMINE 50 MG/ML 1 ML VIAL IVP ONE (09:11)
[2017-04-29] MEDS ORDERED: LIDOCAINE 2% INJ 20 MG/ML SQ ONE ×2 (09:16→09:18)
[2017-04-29] MEDS ORDERED: RX INFO: IV CONTRAST WAS GIVEN 1 EACH MISC MISCELLANE PRN (09:37)
[2017-04-29] MEDS ORDERED: IOHEXOL 350 MG/ML 125ML BOTTLE INJ ONE (09:37)
[2017-04-29] MEDS ORDERED: SODIUM CHLORIDE 0.9% 1,000 ML IV SCH (09:45)
--- NOTE | 2017-04-29 09:46 | P.PCN ---
Date of Procedure: 04/29/17 Preoperative Diagnosis: Recurrent chest pain and positive stress test Procedure(s) Performed: Left heart catheterization without left ventriculography Description of Procedure: HISTORY: This is a 76-year-old female who has been having recurrent chest pains. Patient had a stress test which showed questionable ischemia in the lateral wall. Patient is also going to have any gynecological procedure. She wanted without definitive diagnosis and patient is advised the risks and benefits of the procedure. CONSENT:I have discussed the risks, benefits and alternative therapies for the above-mentioned procedure and for both sedation/analgesia as well as necessary blood product administration, if indicated, as they pertain to this patient. The patient has indicated understanding and acceptance of the risks and procedures discussed. PROCEDURE: Patient was brought to the lab in a fasting state. Patient was given some IV sedation. The right groin is infiltrated with lidocaine and right femoral artery was entered using Seldinger technique. A 6-Serbian catheter was left in place and selective coronary arteriography and left ventriculography was performed. Patient tolerated the procedure well. Femoral angiogram was performed and Angio-Seal was applied for hemostasis. No immediate complications were noted and patient was transferred to [facility] in a stable condition Conscious Sedation: Versed 1 mg Fentanyl 50 g Duration 15 minutes HEMODYNAMICS: . The aortic pressure is about 140/70. Left ankle end-diastolic pressure is 12-16. There was no gradient across the aortic valve SELECTIVE CORONARY ARTERIOGRAPHY: LEFT MAIN: Normal length and patent . THE LEFT ANTERIOR DESCENDING CORONARY ARTERY: This is a good caliber vessel with mild diffuse plaque throughout its length but no significant critical lesions THE LEFT CIRCUMFLEX AND IS CORONARY ARTERY: This is a fair caliber vessel giving rise to moderate caliber first OM branch. The first OM branch has mild diffuse disease with areas of 30-40% stenosis THE RIGHT CORONARY ARTERY: . This is a dominant vessel and ectatic throughout its length without any significant focal lesions LEFT VENTRICULOGRAPHY: Not performed FINAL IMPRESSION: . Mild diffuse plaque without any critical lesions PLAN: Maximum medical therapy with risk factor modification PROGNOSIS: . Fair. Patient is being cleared for the gynecological procedure with average risk
[2017-04-29 13:58] VITALS: BP 132/64; PULSE 64
== END 2017-04-29 14:15 | disposition home or self-care (01) ==
LOC: CATHCVL 07:57
PROVIDERS: ATTEND Internal Medicine Cardiovascular Disease
DX: I25.10 Atherosclerotic heart disease of native coronary artery without angina pectoris (principal); R94.39 Abnormal result of other cardiovascular function study; R07.89 Other chest pain; E78.00 Pure hypercholesterolemia, unspecified; R10.13 Epigastric pain; I73.9 Peripheral vascular disease, unspecified; Z82.49 Family history of ischemic heart disease and other diseases of the circulatory system; Z88.2 Allergy status to sulfonamides; Z79.82 Long term (current) use of aspirin; Z79.899 Other long term (current) drug therapy
CPT/HCPCS: 93458; 99152; 99153; C1760; C1894; C1769; J2001; J2250; J1200; J3010; Q9967

== ENCOUNTER → 2017-06-02 | Outpatient (CLI) | payer MEDICARE, BC ==
[2017-06-02 11:11] LABS: Anion Gap 10 mmol/L; Blood Urea Nitrogen 16 mg/dL (7-17); Carbon Dioxide 25 mmol/L (22-30); Chloride 104 mmol/L (98-107); Glucose 98 mg/dL (74-99); Non-African American GFR(MDRD) >60 (>60 ml/min/1.73 sqM); Potassium 4.5 mmol/L (3.5-5.1); Sodium 139 mmol/L (137-145)
== END | disposition home or self-care (01) ==
LOC: LABPAT 10:16
PROVIDERS: ATTEND Obstetrics & Gynecology
DX: Z01.812 Encounter for preprocedural laboratory examination (principal); N81.6 Rectocele; N81.4 Uterovaginal prolapse, unspecified
CPT/HCPCS: 36415; 80051; 82565; 82947; 84520; 87086

== ENCOUNTER → 2017-09-15 | Outpatient (CLI) | payer MEDICARE, BC ==
--- NOTE | 2017-09-15 16:20 | BD ---
EXAMINATION TYPE: MG DEXA axial skeleton. DATE OF EXAM: 09/15/2017 COMPARISON: NONE CLINICAL HISTORY: 77-year-old female postmenopausal symptoms Height: 4FT 11 1/4 IN Weight: 151 FRAX RISK QUESTIONS: Alcohol (3 or more units per day): NO Family History (Parent hip fracture): NO Glucocorticoids (More than 3mos): NO (Ex: prednisone, prednisolone, methylprednisolone, dexamethasone, and hydrocortisone). History of Fracture in Adulthood: YES Secondary Osteoporosis: 1. Type 1 Diabetes: NO 2. Hyperthyroidism: NO 3. Menopause before 45: NO 4. Malnutrition: NO 5. Chronic liver disease: NO Rheumatoid Arthritis: NO Current Tobacco Use: NO RISK FACTORS HISTORY OF: Active: NO Postmenopausal woman: AGE 50 Lost more than 2 inches in height since high school: YES MEDICATIONS: Additional Medications: BLOOD PRESSURE MEDS, PROTONIX,XANAX, VIT D Additional History: LAST BONE DENSITY DONE APPROX 15 YEARS AGO UNSURE WHEN AND WHERE EXAM MEASUREMENTS: Bone mineral densitometry was performed using the [employer] System. Bone mineral density as measured about the Lumbar spine is: ----- L1-L4(G/cm2): 1.034 T Score Values are as follows: ----- L2: -1.1 ----- L3: -1.1 ----- L4: -1.3 ----- L1-L4: -1.2 BASELINE Bone mineral density about the R hip (g/cm2): 0.754 Bone mineral density about the L hip (g/cm2): 0.780 T Score values are as follows: -----R Neck: -2.0 -----L Neck: -1.9 -----R Total: -1.5 -----L Total: -1.5 BASELINE IMPRESSION: Osteopenia (T Score between -2.5 and -1 as noted by T score values There is slightly increased risk of fracture and the patient may be considered for treatment. Re-Screen 2-5 years. NOTE: T-SCORE=SD OF THE YOUNG ADULT MEAN.
--- NOTE | 2017-09-16 10:09 | MM ---
Reason for exam: screening (asymptomatic). Last mammogram was performed 2 years and 2 months ago. History: Patient is postmenopausal. Taking estrogen for 1 year beginning at age 50. Physical Findings: A clinical breast exam by your physician is recommended on an annual basis and results should be correlated with mammographic findings. MG 3D Screening Mammo W/Cad Bilateral CC and MLO view(s) were taken. Prior study comparison: July 05, 2015, bilateral MG screening mammo w CAD. June 18, 2014, bilateral MG screening mammo w CAD. There are scattered fibroglandular densities. No suspicious abnormality. No significant changes when compared with prior studies. ASSESSMENT: Negative, BI-RAD 1 RECOMMENDATION: Routine screening mammogram of both breasts in 1 year.
== END | disposition home or self-care (01) ==
LOC: RADMAMWWP 14:18
PROVIDERS: ATTEND Internal Medicine
DX: Z12.31 Encounter for screening mammogram for malignant neoplasm of breast (principal); M85.80 Other specified disorders of bone density and structure, unspecified site; N95.1 Menopausal and female climacteric states
CPT/HCPCS: 77063; 77067; 77080

== ENCOUNTER 2017-11-17 09:01 | Day surgery (SDC) | payer MEDICARE, BC ==
[2017-11-15 11:45] VITALS: BMI 28.7
[~2017-11-17 09:01] MED LIST changes: -ALPRAZolam 0.25 MG TAB PO PRN; -ALPRAZolam 0.5 MG TAB PO PRN; -ASPIRIN 325 MG TAB PO STA; -ATORVASTATIN 80 MG TAB PO STA; +LACTATED RINGERS 1,000 ML IV SCH; +LIDOCAINE 1% 20 ML VIAL (10MG/ML) FOR IV START INTRADERMA PRN; -NITROGLYCERIN SL TABS 0.4 MG TAB SUBLINGUAL PRN; -SODIUM CHLORIDE 0.9% 1,000 ML in EMPTY BAG 1 BAG IV ONE
[2017-11-17 10:30] VITALS: RESP 16; TEMP 97.5
[2017-11-17] MEDS ORDERED: PROPOFOL 10 MG/ML 20 ML VIAL IV ONE (10:43)
[2017-11-17] MEDS ORDERED: LIDOCAINE 1% INJ 10MG/ML (20 ML MDV) ONE (10:43)
--- NOTE | 2017-11-17 10:51 | P.PCN ---
Date of Procedure: 11/17/17 Procedure(s) Performed: BRIEF HISTORY: Patient is a 77-year-old, pleasant, white female, scheduled for an upper endoscopy as a part of evaluation of epigastric discomfort, upper abdominal tightness and abdominal bloating for the last 6 months duration. She completes of some early satiety and weight loss of 10 pounds. Has been on Protonix 40 mg daily with some help. She is scheduled for an upper endoscopy lab peptic ulcer disease or other upper GI pathology.. PROCEDURE PERFORMED: Esophagogastroduodenoscopy with biopsy. PREOPERATIVE DIAGNOSIS: Epigastric discomfort, upper abdominal tightness and abdominal bloating. IV sedation per anesthesia. PROCEDURE: After informed consent was obtained, the patient was brought into the endoscopy unit. IV sedation was administered by Anesthesia under continuous monitoring. Initially the Olympus GIF-140 video endoscope was inserted into the mouth. Esophagus intubated without any difficulty. It was gradually advanced into the stomach and duodenum and carefully examined. The bulb and the second part of the duodenum appeared normal. The scope at this time was withdrawn to the stomach, adequately insufflated with air, and upon careful examination, mucosa of the antrum, had patchy areas of erythema in the prepyloric area consistent with gastritis and biopsies were done from this area. The body, cardia and the fundus appeared normal. The scope was then withdrawn into the esophagus. The GE junction was located at 40 cm from the incisors. The esophagus appeared normal. There were no erosions or ulcerations seen and the patient tolerated the procedure well. IMPRESSION: 1. Mild antral gastritis. 2. No evidence of esophagitis or peptic ulcer disease. RECOMMENDATIONS: The findings of this examination were discussed with the patient as well as a family. She was advised to follow with the biopsy results results. She will continue with Protonix 40 mg daily and she'll be seen in office in 6 weeks.
[2017-11-17 11:31] VITALS: BP 129/60; PULSE 71
== END 2017-11-17 11:50 | disposition home or self-care (01) ==
LOC: ORWHC2ENDO 09:01
PROVIDERS: ATTEND Internal Medicine Gastroenterology
DX: K29.50 Unspecified chronic gastritis without bleeding (principal); K21.0 Gastro-esophageal reflux disease with esophagitis; I10 Essential (primary) hypertension; I49.9 Cardiac arrhythmia, unspecified; Z79.82 Long term (current) use of aspirin; Z79.899 Other long term (current) drug therapy; Z88.1 Allergy status to other antibiotic agents; Z88.0 Allergy status to penicillin; Z88.2 Allergy status to sulfonamides; Z88.8 Allergy status to other drugs, medicaments and biological substances
CPT/HCPCS: 88305; 43239; J2001; J2704

== ENCOUNTER 2017-12-21 21:50 | Inpatient (IN) | payer MEDICARE, BC ==
[2017-12-21] MEDS ORDERED: MAG HYDROX/AL HYDROX/SIMETH 30 ML, HYOSCYAMINE ELIXIR 10 ML, CIMETIDINE HCL 300 MG, LID... PO STA ×4 (22:27)
--- NOTE | 2017-12-21 22:28 | ED ---
Abdominal Pain HPI - General Chief Complaint: Abdominal Pain Stated Complaint: abdominal & back pain Time Seen by Provider: 12/21/17 22:10 Source: patient Mode of arrival: ambulatory Limitations: no limitations - History of Present Illness Initial Comments: This patient is a 77-year-old woman who presents to be evaluated for upper abdominal pain. This pain is been going on for a couple of months, and she has been seeing Dr. Duong, and even had an endoscopy with Dr. Ryan, which was on November 17. Patient states that it started flaring up tonight. She indicates the epigastric area and bilateral upper quadrants. The pain is somewhat achy, there is also possibly gassy or crampy component. The patient tried taking Zantac after it was getting worse. She usually takes his medicine twice per day. She states that it wasn't doing too much tonight so she came to be seen about it. Strength rates the pain is moderate, constant, and she has not noted any worsening or relieving factors. There is a little bit of nausea, and she states that today she has been having what she would describe as diarrhea and took Imodium in the afternoon. MD Complaint: abdominal pain -: month(s) Location: LUQ, RUQ, epigastric Radiation: none Severity: moderate Quality: dull Consistency: constant Improves With: nothing Worsens With: nothing Associated Symptoms: nausea - Related Data Home Medications Medication Instructions Recorded Confirmed ALPRAZolam [Xanax] 1.5 mg PO HS 09/06/14 12/21/17 Aspirin 81 mg PO DAILY 09/06/14 12/21/17 Diltiazem HCl [Diltiazem 24Hr ER] 120 mg PO DAILY 09/06/14 12/21/17 Propylene Glycol/Peg 400/Pf 1 dropper BOTH EYES BID 06/01/17 12/21/17 [Systane 0.3-0.4% Eye Drops] Ergocalciferol (Vitamin D2) 50,000 unit PO MO 11/15/17 12/21/17 [Vitamin D2] Loperamide HCl [Imodium A-D] 2 - 4 mg PO QID PRN 12/21/17 12/21/17 Ranitidine HCl [Zantac] 150 mg PO BID 12/21/17 12/21/17 Allergies Allergy/AdvReac Type Severity Reaction Status Date / Time clindamycin HCl Allergy Intermediate Rash/Hives Verified 12/21/17 22:31 [From Cleocin] clindamycin palmitate HCl Allergy Intermediate Rash/Hives Verified 12/21/17 22: 31 [From Cleocin] clindamycin phosphate Allergy Intermediate Rash/Hives Verified 12/21/17 22:31 [From Cleocin] Sulfa (Sulfonamide Allergy Intermediate Rash/Hives Verified 12/21/17 22:31 Antibiotics) cefuroxime [From Ceftin] Allergy Unknown Unknown-OBTAINED Verified 12/21/17 22: [address] [facility] OFF[facility]. clarithromycin [From Biaxin] Allergy Unknown Unknown-OBTAINED Verified 12/21/17 22:[address] [facility] OFF[facility] ezetimibe [From Zetia] Allergy Unknown Unknown-OBTAINED Verified 12/21/17 22:[address] [facility] ofloxacin [From Floxin] Allergy Unknown Unknown-OBTAINED Verified 12/21/17 22:[address] [facility] OFF[facility] [id number]-[id number]-Gda Reductase Allergy Unknown Unknown-OBTAINED Verified 12/21/17 22: [address] [facility] OFFICE sulfamethoxazole Allergy Unknown Unknown Verified 12/21/17 22:31 [From Bactrim] trimethoprim [From Bactrim] Allergy Unknown Unknown Verified 12/21/17 22:31 Review of Systems ROS Statement: Those systems with pertinent positive or pertinent negative responses have been documented in the HPI. ROS Other: All systems not noted in ROS Statement are negative. Constitutional: Denies: fever, chills, weakness Respiratory: Denies: cough, dyspnea Cardiovascular: Denies: chest pain, palpitations, orthopnea, edema Gastrointestinal: Reports: abdominal pain, nausea, diarrhea. Denies: vomiting, constipation, melena, hematochezia Genitourinary: Denies: dysuria, hematuria Musculoskeletal: Denies: back pain Skin: Denies: rash Neurological: Denies: headache, weakness, numbness Past Medical History Past Medical History: Chest Pain / Angina, GERD/Reflux, Hypertension, Osteoarthritis (OA) Additional Past Medical History / Comment(s): irreg heart beat. History of Any Multi-Drug Resistant Organisms: None Reported Past Surgical History: Adenoidectomy, Cholecystectomy, Heart Catheterization, Hysterectomy, Tonsillectomy Additional Past Surgical History / Comment(s): Cataracts, ORIF RT ANKLE. HEART CATH 04/29/17., VAG HYST & A & P REPAIR(MAY 2017) Past Anesthesia/Blood Transfusion Reactions: No Reported Reaction Past Psychological History: Anxiety Smoking Status: Never smoker Past Alcohol Use History: None Reported Past Drug Use History: None Reported - Past Family History Father Family Medical History: Myocardial Infarction (OR) Additional Family Medical History / Comment(s): Bad hip, enlarged heart Mother Family Medical History: COPD Additional Family Medical History / Comment(s): PNA General Exam Limitations: no limitations General appearance: alert, in no apparent distress Head exam: Present: atraumatic, normocephalic Eye exam: Present: normal appearance. Absent: scleral icterus, conjunctival injection ENT exam: Present: normal oropharynx Neck exam: Present: normal inspection Respiratory exam: Present: normal lung sounds bilaterally. Absent: respiratory distress, wheezes, rales, rhonchi, stridor Cardiovascular Exam: Present: regular rate, normal rhythm, normal heart sounds. Absent: systolic murmur, diastolic murmur, rubs, gallop GI/Abdominal exam: Present: soft, tenderness (Mild epigastric tenderness without rebound or guarding), normal bowel sounds. Absent: distended, guarding , rebound, rigid, organomegaly, mass, pulsatile mass, hernia Extremities exam: Present: normal inspection, normal capillary refill. Absent: pedal edema, calf tenderness Back exam: Present: normal inspection. Absent: CVA tenderness (R), CVA tenderness (L) Neurological exam: Present: alert Skin exam: Present: warm, dry, intact, normal color. Absent: rash Course Vital Signs 12/21/17 12/21/17 12/22/17 21:55 23:55 00:45 Temperature 98.5 F Pulse Rate 84 68 71 Respiratory 18 18 16 Rate Blood Pressure 142/68 159/63 149/67 O2 Sat by Pulse 93 L 100 96 Oximetry 12/22/17 12/22/17 12/22/17 01:00 02:40 03:15 Temperature Pulse Rate 76 75 72 Respiratory 16 16 15 Rate Blood Pressure 107/55 112/59 O2 Sat by Pulse 94 L 98 96 Oximetry Medical Decision Making - Lab Data Result diagrams: 12/21/17 22:57 12/21/17 22:57 Lab Results 12/21/17 12/21/17 12/21/17 Range/Units 22:57 22:57 22:57 WBC 6.7 (3.8-10.6) k/uL RBC 5.15 (3.80-5.40) m/uL Hgb 14.6 (11.4-16.0) gm/dL Hct 43.2 (34.0-46.0) % MCV 83.8 (80.0-100.0) fL MCH 28.4 (25.0-35.0) pg MCHC 33.9 (31.0-37.0) g/dL RDW 13.0 (11.5-15.5) % Plt Count 233 (150-450) k/uL Neutrophils % 65 % Lymphocytes % 21 % Monocytes % 7 % Eosinophils % 3 % Basophils % 0 % Neutrophils # 4.4 (1.3-7.7) k/uL Lymphocytes # 1.4 (1.0-4.8) k/uL Monocytes # 0.5 (0-1.0) k/uL Eosinophils # 0.2 (0-0.7) k/uL Basophils # 0.0 (0-0.2) k/uL Sodium 142 (137-145) mmol/L Potassium 3.9 (3.5-5.1) mmol/L Chloride 105 (98-107) mmol/L Carbon Dioxide 26 (22-30) mmol/L Anion Gap 11 mmol/L BUN 18 H (7-17) mg/dL Creatinine 0.70 (0.52-1.04) mg/dL Est GFR (CKD-EPI)AfAm >90 (>60 ml/min/1.73 sqM) Est GFR (CKD-EPI)NonAf 85 (>60 ml/min/1.73 sqM) Glucose 83 (74-99) mg/dL Calcium 9.2 (8.4-10.2) mg/dL Total Bilirubin 0.6 (0.2-1.3) mg/dL AST 59 H (14-36) U/L ALT 40 (9-52) U/L Alkaline Phosphatase 103 (38-126) U/L Troponin I <0.012 (0.000-0.034) ng/mL Total Protein 6.4 (6.3-8.2) g/dL Albumin 4.1 (3.5-5.0) g/dL Amylase 202 H (30-110) U/L Lipase 1651 H (23-300) U/L Urine Color Urine Appearance (Clear) Urine pH (5.0-8.0) Ur Specific Odin (1.001-1.035) Urine Protein (Negative) Urine Glucose (UA) (Negative) Urine Ketones (Negative) Urine Blood (Negative) Urine Nitrite (Negative) Urine Bilirubin (Negative) Urine Urobilinogen (<2.0) mg/dL Ur Leukocyte Esterase (Negative) Urine RBC (0-5) /hpf Urine WBC (0-5) /hpf Urine Mucus (None) /hpf 12/21/17 Range/Units 23:47 WBC (3.8-10.6) k/uL RBC (3.80-5.40) m/uL Hgb (11.4-16.0) gm/dL Hct (34.0-46.0) % MCV (80.0-100.0) fL MCH (25.0-35.0) pg MCHC (31.0-37.0) g/dL RDW (11.5-15.5) % Plt Count (150-450) k/uL Neutrophils % % Lymphocytes % % Monocytes % % Eosinophils % % Basophils % % Neutrophils # (1.3-7.7) k/uL Lymphocytes # (1.0-4.8) k/uL Monocytes # (0-1.0) k/uL Eosinophils # (0-0.7) k/uL Basophils # (0-0.2) k/uL Sodium (137-145) mmol/L Potassium (3.5-5.1) mmol/L Chloride (98-107) mmol/L Carbon Dioxide (22-30) mmol/L Anion Gap mmol/L BUN (7-17) mg/dL Creatinine (0.52-1.04) mg/dL Est GFR (CKD-EPI)AfAm (>60 ml/min/1.73 sqM) Est GFR (CKD-EPI)NonAf (>60 ml/min/1.73 sqM) Glucose (74-99) mg/dL Calcium (8.4-10.2) mg/dL Total Bilirubin (0.2-1.3) mg/dL AST (14-36) U/L ALT (9-52) U/L Alkaline Phosphatase (38-126) U/L Troponin I (0.000-0.034) ng/mL Total Protein (6.3-8.2) g/dL Albumin (3.5-5.0) g/dL Amylase (30-110) U/L Lipase (23-300) U/L Urine Color Light Yellow Urine Appearance Clear (Clear) Urine pH 6.0 (5.0-8.0) Ur Specific Odin 1.006 (1.001-1.035) Urine Protein Negative (Negative) Urine Glucose (UA) Negative (Negative) Urine Ketones Trace H (Negative) Urine Blood Negative (Negative) Urine Nitrite Negative (Negative) Urine Bilirubin Negative (Negative) Urine Urobilinogen <2.0 (<2.0) mg/dL Ur Leukocyte Esterase Large H (Negative) Urine RBC 1 (0-5) /hpf Urine WBC 19 H (0-5) /hpf Urine Mucus Rare H (None) /hpf - EKG Data -: EKG Interpreted by Ak EKG shows normal: sinus rhythm, axis (Normal), intervals (Normal), QRS complexes (Normal), ST-T waves (Normal) Rate: normal (Rate 71 bpm) Interpretation: normal EKG Disposition Clinical Impression: Pancreatitis Disposition: ADMITTED IP TO THIS [facility] Condition: Fair Is patient prescribed a controlled substance at d/c from ED?: No Referrals: Stalin Duong MD [Primary Care Provider] - 1-2 days
[2017-12-21 23:06] LABS: Basophils % (A) 0 %; Eosinophils # (A) 0.2 k/uL (0-0.7); Eosinophils % (A) 3 %; HCT 43.2 % (34.0-46.0); HGB 14.6 gm/dL (11.4-16.0); Lymphocytes # (A) 1.4 k/uL (1.0-4.8); Lymphocytes % (A) 21 %; MCH 28.4 pg (25.0-35.0); MCHC 33.9 g/dL (31.0-37.0); MCV 83.8 fL (80.0-100.0); Monocytes # (A) 0.5 k/uL (0-1.0); Monocytes % (A) 7 %; Neutrophils # (A) 4.4 k/uL (1.3-7.7); Neutrophils % (A) 65 %; Platelet Count 233 k/uL (150-450); RBC 5.15 m/uL (3.80-5.40); WBC 6.7 k/uL (3.8-10.6)
[2017-12-21 23:17] LABS: ALT 40 U/L (9-52); AST 59 U/L (14-36); Albumin 4.1 g/dL (3.5-5.0); Alkaline Phosphatase 103 U/L (38-126); Amylase 202 U/L (30-110); Anion Gap 11 mmol/L; Blood Urea Nitrogen 18 mg/dL (7-17); Calcium 9.2 mg/dL (8.4-10.2); Carbon Dioxide 26 mmol/L (22-30); Chloride 105 mmol/L (98-107); Glucose 83 mg/dL (74-99); Lipase 1651 U/L (23-300); Potassium 3.9 mmol/L (3.5-5.1); Sodium 142 mmol/L (137-145); Total Bilirubin 0.6 mg/dL (0.2-1.3); Total Protein 6.4 g/dL (6.3-8.2)
[2017-12-21 23:59] LABS: Appearance,Urine Clear (Clear); Bilirubin,Urine Negative (Negative); Blood,Urine Negative (Negative); Color,Urine Light Yellow; Glucose,Urine (UA) Negative (Negative); Ketones,Urine Trace (Negative); Leukocyte Esterase,Urine Large (Negative); Mucus,Urine Rare /hpf; Nitrite,Urine Negative (Negative); Protein,Urine Negative (Negative); RBC,Urine 1 /hpf (0-5); Specific Gravity,Urine 1.006 (1.001-1.035); Urobilinogen,Urine <2.0 mg/dL (<2.0); WBC,Urine 19 /hpf (0-5)
[2017-12-22] MEDS ORDERED: NALOXONE 0.4 MG/ML 1 ML VIAL IV PRN (03:30)
[2017-12-22] MEDS ORDERED: MORPHINE SULFATE 4 MG/ML SYRINGE IV PRN (03:30)
[2017-12-22] MEDS ORDERED: HYDROcodone/APAP 5-325MG 1 EACH TAB PO PRN (03:30)
[2017-12-22] MEDS ORDERED: ONDANSETRON 4 MG/2 ML VIAL IVP PRN (03:30)
[2017-12-22] MEDS: SODIUM CHLORIDE 0.9% 1,000 ML IV SCH ×3 (04:00→19:30)
[2017-12-22 04:04] VITALS: RESP 16
[2017-12-22 04:15] VITALS: BMI 28.3
[2017-12-22] MEDS: FAMOTIDINE 20 MG TAB PO SCH ×2 (08:43→22:13)
[2017-12-22] MEDS: DILTIAZEM CD 120 MG CAP.ER.24H PO SCH (08:43)
[2017-12-22] MEDS: ASPIRIN 81 MG PO SCH (08:43)
[2017-12-22] MEDS ORDERED: RX INFO: IV CONTRAST WAS GIVEN 1 EACH MISC MISCELLANE PRN (08:55)
[2017-12-22] MEDS ORDERED: IOPAMIDOL-300 CONTRAST 30 ML VIAL (ORAL USE) PO PRN (08:55)
--- NOTE | 2017-12-22 08:59 | P.CONS ---
History of Present Illness - Reason for Consult Consult date: 12/22/17 Pancreatitis Requesting physician: Stalin Duong - History of Present Illness 77-year-old female history of cholecystectomy many years ago for cholelithiasis admitted with upper abdominal pain 6 months status post recent EGD 11/17/2017 with findings of mild antral gastritis no evidence of peptic ulcer disease. No history of colonoscopy. No fever chills hematemesis hematochezia or melena. Yesterday she wasn't quite feeling well enough experienced a few episodes of diarrhea took a few tablets of Imodium has some indigestion did not take PPI to the Zantac. Mild upper abdominal discomfort. No emesis. No fever or chills. Intermittent depressed changes in her appetite over the last month with some mild weight loss. White count 6.7. Hemoglobin 14.6. LFTs unremarkable. Amylase 202. Lipase 1651. BUN 18. Creatinine 0.7. No history of pancreatitis no alcohol abuse. No changes in medications. Review of Systems Constitutional: Denies fever, chills, sweats, weight gain, or loss. HEENT: Negative for migraines, blurred vision or loss, earaches, drainage, tinnitus, oral mucosal lesions, dysphagia, or odynophagia. CARDIAC: Negative for chest pain, arrhythmias, or palpitation. RESPIRATORY: Negative for shortness of breath, hemoptysis, cough, or sputum production. GI: See HPI for pertinent findings. : Negative for hematuria, urgency, frequency, polyuria, or dysuria. GYNc: Denies possibility of . Negative vaginal discharge. MUSCULOSKELETAL: Negative for muscle aches, swelling, arthritis, and arthralgias. NEUROLOGIC: Negative for stroke or TIA. ENDOCRINE: Negative for thyroid problems. SKIN: Negative for rash or itching. PSYCHIATRIC: Negative history for depression and anxiety Past Medical History Past Medical History: Chest Pain / Angina, GERD/Reflux, Hypertension, Osteoarthritis (OA) Additional Past Medical History / Comment(s): irreg heart beat. History of Any Multi-Drug Resistant Organisms: None Reported Past Surgical History: Adenoidectomy, Cholecystectomy, Heart Catheterization, Hysterectomy, Tonsillectomy Additional Past Surgical History / Comment(s): Cataracts, ORIF RT ANKLE. HEART CATH 04/29/17., VAG HYST & A & P REPAIR(MAY 2017) Past Anesthesia/Blood Transfusion Reactions: No Reported Reaction Past Psychological History: Anxiety Additional Psychological History / Comment(s): YEARS AGO, HAD "NERVOUS BREAKDOWN." Smoking Status: Never smoker Past Alcohol Use History: None Reported Past Drug Use History: None Reported - Past Family History Father Family Medical History: Myocardial Infarction (MS) Additional Family Medical History / Comment(s): Bad hip, enlarged heart Mother Family Medical History: COPD Additional Family Medical History / Comment(s): PNA Medications and Allergies Home Medications Medication Instructions Recorded Confirmed Type ALPRAZolam [Xanax] 1.5 mg PO HS 09/06/14 12/21/17 History Aspirin 81 mg PO DAILY 09/06/14 12/21/17 History Diltiazem HCl [Diltiazem 24Hr ER] 120 mg PO DAILY 09/06/14 12/21/17 History Propylene Glycol/Peg 400/Pf 1 dropper BOTH EYES BID 06/01/17 12/21/17 History [Systane 0.3-0.4% Eye Drops] Ergocalciferol (Vitamin D2) 50,000 unit PO MO 11/15/17 12/21/17 History [Vitamin D2] Loperamide HCl [Imodium A-D] 2 - 4 mg PO QID PRN 12/21/17 12/21/17 History Ranitidine HCl [Zantac] 150 mg PO BID 12/21/17 12/21/17 History Allergies Allergy/AdvReac Type Severity Reaction Status Date / Time clindamycin HCl Allergy Intermediate Rash/Hives Verified 12/21/17 22:31 [From Cleocin] clindamycin palmitate HCl Allergy Intermediate Rash/Hives Verified 12/21/17 22: 31 [From Cleocin] clindamycin phosphate Allergy Intermediate Rash/Hives Verified 12/21/17 22:31 [From Cleocin] Sulfa (Sulfonamide Allergy Intermediate Rash/Hives Verified 12/21/17 22:31 Antibiotics) cefuroxime [From Ceftin] Allergy Unknown Unknown-OBTAINED Verified 12/21/17 22: [address] [facility] OFF[address]. clarithromycin [From Biaxin] Allergy Unknown Unknown-OBTAINED Verified 12/21/17 22:[address] [facility] OFFICE ezetimibe [From Zetia] Allergy Unknown Unknown-OBTAINED Verified 12/21/17 22:[address] [facility] OFF[facility] ofloxacin [From Floxin] Allergy Unknown Unknown-OBTAINED Verified 12/21/17 22:[address] [facility] OFFICE Kwoqmhp-Rbk-Bfx Reductase Allergy Unknown Unknown-OBTAINED Verified 12/21/17 22: [address] [facility] OFFICE sulfamethoxazole Allergy Unknown Unknown Verified 12/21/17 22:31 [From Bactrim] trimethoprim [From Bactrim] Allergy Unknown Unknown Verified 12/21/17 22:31 Physical Exam Vitals: Vital Signs Temp Pulse Pulse Resp BP BP Pulse Ox 12/22/17 04:03 98.0 F 69 16 124/68 96 12/22/17 03:51 98.0 F 12/22/17 03:15 72 15 112/59 96 12/22/17 02:40 75 16 98 12/22/17 01:00 76 16 107/55 94 L 12/22/17 00:45 71 16 149/67 96 12/21/17 23:55 68 18 159/63 100 12/21/17 21:55 98.5 F 84 18 142/68 93 L Intake and Output 12/21/17 12/22/17 12/22/17 22:59 06:59 14:59 Intake Total 250 Balance 250 Intake: Intake, IV Titration 250 Amount Sodium Chloride 0.9% 1, 250 000 ml @ 125 mls/hr IV . Q8H [facility] Rx#:[id number] Other: Voiding Method Toilet # Voids 1 Weight 65.771 kg 65.771 kg General appearance: The patient is alert, oriented, in no acute distress. HET: Head is normocephalic and atraumatic. Pupils are equal and reactive. Oropharynx is clear without lesions. Neck: Supple without lymphadenopathy. Trachea midline. Heart: S1 S2. Regular rate and rhythm. Lungs: No crackles or wheezes are heard. Abdomen: Soft, nontender, nondistended with bowel sounds. No peritoneal signs. No palpable organomegaly or masses. Extremities: Normal skin color and turgor. No cyanosis, rash, ulceration, clubbing, or edema. Radial and pedal pulses are 2/4 bilaterally. Neurological: No focal deficits. Strength and sensation are grossly intact. Results CBC & Chem 7: 12/23/17 06:56 12/23/17 06:56 Labs: Abnormal Lab Results - Last 24 Hours (Table) 12/21/17 12/21/17 Range/Units 22:57 23:47 BUN 18 H (7-17) mg/dL AST 59 H (14-36) U/L Amylase 202 H (30-110) U/L Lipase 1651 H (23-300) U/L Urine Ketones Trace H (Negative) Ur Leukocyte Esterase Large H (Negative) Urine WBC 19 H (0-5) /hpf Urine Mucus Rare H (None) /hpf Assessment and Plan (1) Pancreatitis Narrative/Plan: 77-year-old female admitted with upper abdominal pain for 6 months duration with elevated pancreatic enzymes consistent with acute pancreatitis of unclear etiology status post EGD evaluation 1 month ago with no evidence of peptic ulcer disease. History of cholelithiasis possible passage of microlithiasis. Current Visit: Yes Status: Acute Code(s): K85.90 - ACUTE PANCREATITIS WITHOUT NECROSIS OR INFECTION, UNSP SNOMED Code(s): 95076940 Plan: 1. CT abdomen/pelvis. 2. IV hydration GI prophylaxis daily monitoring of pancreatic enzymes. Presently patient is with minimal abdominal discomfort will allow clear liquids after CT is performed. Will follow closely with you. Thank you for this kind referral and the opportunity to participate in the care of your patient. This consultation was discussed with Dr. Ryan. The impression and plan of care have been directed as dictated.
--- NOTE | 2017-12-22 09:59 | CT ---
EXAMINATION TYPE: CT abdomen pelvis w con DATE OF EXAM: 12/22/2017 HISTORY: Pancreatitis CT DLP: 1040.50mGycm Automated Exposure Control for Dose Reduction was Utilized. CONTRAST: CT scan of the abdomen and pelvis is performed with oral water and with IV Contrast, patient injected with 120 mL of Isovue 370. Pancreatic protocol. COMPARISON: CT abdomen and pelvis January 31, 2013. FINDINGS: LUNG BASES: There is bibasilar linear scarring and/or atelectasis more prominent than prior. LIVER/GB: Cholecystectomy clips are redemonstrated. Calcifications posterior inferior aspect of liver near displaced clips are again seen and presumed benign and stable. No biliary dilatation is present . PANCREAS: Pancreas is normal in size. Duct is visualized but felt within normal limits best on series 3. Duct is well visualized and pancreatic head on coronal image 51 series 9 without suspicious dilat ation. No worrisome solid or cystic mass is present. No surrounding inflammatory change is seen. SPLEEN: No significant abnormality is seen. ADRENALS: Slight low dense thickening to both adrenal glands favors benign hyperplasia. KIDNEYS: There are simple appearing parapelvic cyst centrally in both kidneys, left more numerous aravind n right. There is symmetric cortical medullary uptake and excretion from both kidneys without hydrone phrosis identified bilaterally. BOWEL: Diverticula are seen throughout the colon most prominent in the sigmoid and left colon. There is no CT evidence for acute diverticulitis. UTERUS/ADNEXA: Uterus is surgically absent or markedly atrophic in appearance. Suspect remnant left o vary near axial image 112 series 8 not enlarged. LYMPH NODES: No greater than 1cm abdominal or pelvic lymph nodes are appreciated. OSSEOUS STRUCTURES: There is moderate joint space loss and mild to moderate spurring in both hips. OTHER: There is mild to moderate mixed plaque in aorta extending into branch vessels. IMPRESSION: No CT evidence for complication related to acute pancreatitis.
[2017-12-22] MEDS: Systane 0.3-0.4% Eye Drops BOTH EYES SCH ×2 (14:43→22:16)
[2017-12-22] MEDS ORDERED: ALPRAZolam 0.5 MG TAB PO SCH (21:00)
[2017-12-23] MEDS: SODIUM CHLORIDE 0.9% 1,000 ML IV SCH ×2 (03:30→12:14)
[2017-12-23 07:30] LABS: Basophils % (A) 0 %; Eosinophils # (A) 0.3 k/uL (0-0.7); Eosinophils % (A) 7 %; HCT 39.5 % (34.0-46.0); HGB 12.8 gm/dL (11.4-16.0); Lymphocytes % (A) 22 %; MCH 27.8 pg (25.0-35.0); MCHC 32.5 g/dL (31.0-37.0); MCV 85.5 fL (80.0-100.0); Mean Platelet Volume 7.5; Monocytes # (A) 0.3 k/uL (0-1.0); Monocytes % (A) 7 %; Neutrophils # (A) 2.7 k/uL (1.3-7.7); Neutrophils % (A) 62 %; Platelet Count 203 k/uL (150-450); RBC 4.63 m/uL (3.80-5.40); RDW 13.3 % (11.5-15.5); WBC 4.4 k/uL (3.8-10.6)
[2017-12-23 07:50] LABS: ALT 31 U/L (9-52); AST 25 U/L (14-36); Albumin 3.2 g/dL (3.5-5.0); Alkaline Phosphatase 73 U/L (38-126); Amylase 64 U/L (30-110); Anion Gap 8 mmol/L; Blood Urea Nitrogen 8 mg/dL (7-17); Calcium 8.4 mg/dL (8.4-10.2); Carbon Dioxide 28 mmol/L (22-30); Chloride 108 mmol/L (98-107); Glucose 84 mg/dL (74-99); Lipase 146 U/L (23-300); Potassium 4.1 mmol/L (3.5-5.1); Sodium 144 mmol/L (137-145); Total Bilirubin 0.6 mg/dL (0.2-1.3); Total Protein 5.3 g/dL (6.3-8.2)
[2017-12-23] MEDS: ASPIRIN 81 MG PO SCH (08:02)
[2017-12-23] MEDS: FAMOTIDINE 20 MG TAB PO SCH (08:02)
[2017-12-23] MEDS: Systane 0.3-0.4% Eye Drops BOTH EYES SCH (08:02)
[2017-12-23] MEDS: DILTIAZEM CD 120 MG CAP.ER.24H PO SCH (08:02)
[2017-12-23] MEDS ORDERED: MORPHINE ORAL SOLN 10 MG/5 ML CUP PO PRN (09:15)
--- NOTE | 2017-12-23 12:12 | P.PN ---
Subjective Progress Note Date: 12/23/17 Principal diagnosis: Pancreatitis Feels better. Pancreatic enzymes normalized. CT no evidence for complicated acute pancreatitis. Objective - Vital Signs Vital signs: Vital Signs Temp 97.2 F L 12/23/17 07:55 Pulse 76 12/23/17 07:55 Resp 16 12/23/17 07:55 BP 122/72 12/23/17 07:55 Pulse Ox 95 12/23/17 07:55 Intake & Output 12/22/17 12/23/17 12/23/17 18:59 06:59 18:59 Intake Total 1925 Output Total 520 Balance 1405 Intake: Intake, IV Titration 1135 Amount Sodium Chloride 0.9% 1, 1135 000 ml @ 125 mls/hr IV . Q8H [facility] Rx#:[id number] Oral 790 Output: Urine 520 Other: Voiding Method Toilet Toilet # Voids 2 2 # Bowel Movements 0 # Emeses 0 - Exam General appearance: The patient is alert, oriented, in no acute distress. HET: Head is normocephalic and atraumatic. Pupils are equal and reactive. Oropharynx is clear without lesions. Neck: Supple without lymphadenopathy. Trachea midline. Heart: S1 S2. Regular rate and rhythm. Lungs: No crackles or wheezes are heard. Abdomen: Soft, nontender, nondistended with bowel sounds. No peritoneal signs. No palpable organomegaly or masses. Extremities: Normal skin color and turgor. No cyanosis, rash, ulceration, clubbing, or edema. Radial and pedal pulses are 2/4 bilaterally. Neurological: No focal deficits. Strength and sensation are grossly intact. - Labs CBC & Chem 7: 12/23/17 06:56 12/23/17 06:56 Labs: Abnormal Lab Results - Last 24 Hours (Table) 12/23/17 Range/Units 06:56 Chloride 108 H (98-107) mmol/L Total Protein 5.3 L (6.3-8.2) g/dL Albumin 3.2 L (3.5-5.0) g/dL Microbiology - Last 24 Hours (Table) 12/22/17 Unknown Urine Culture - Preliminary Urine,Clean Catch Assessment and Plan (1) Pancreatitis Narrative/Plan: 77-year-old female admitted with upper abdominal pain for 6 months duration with elevated pancreatic enzymes consistent with acute pancreatitis of unclear etiology status post EGD evaluation 1 month ago with no evidence of peptic ulcer disease. History of cholelithiasis possible passage of microlithiasis. CT unremarkable. Current Visit: Yes Status: Acute Code(s): K85.90 - ACUTE PANCREATITIS WITHOUT NECROSIS OR INFECTION, UNSP SNOMED Code(s): 74680380 Plan: 1. Low-fat diet. Discharge per medicine. Continue GI prophylaxis. Return to office in 3-4 weeks for reevaluation. Assessment and plan a care discussed with Dr. Ryan
--- NOTE | 2017-12-23 14:20 | P.HPIM ---
History of Present Illness H&P Date: 12/23/17 Chief Complaint: Abdominal pain This is a 77-year-old female with a known past medical history of hypertension and osteoarthritis. Patient also has a history of cholecystectomy due to cholelithiasis. Patient presented to the emergency room with upper abdominal discomfort and not feeling well for the last couple months. She had a few episodes of diarrhea. She took Imodium. Patient reports the pain is achy in the bilateral upper quadrants of the abdomen. Tried taking Zantac but symptoms kept getting worse. Patient admits to some nausea no vomiting. Patient denies any fever chills or sweats. Denies any chest pain or shortness of breath. Review of Systems Please refer to HPI otherwise unremarkable Past Medical History Past Medical History: Chest Pain / Angina, GERD/Reflux, Hypertension, Osteoarthritis (OA) Additional Past Medical History / Comment(s): irreg heart beat. History of Any Multi-Drug Resistant Organisms: None Reported Past Surgical History: Adenoidectomy, Cholecystectomy, Heart Catheterization, Hysterectomy, Tonsillectomy Additional Past Surgical History / Comment(s): Cataracts, ORIF RT ANKLE. HEART CATH 04/29/17., VAG HYST & A & P REPAIR(MAY 2017) Past Anesthesia/Blood Transfusion Reactions: No Reported Reaction Past Psychological History: Anxiety Additional Psychological History / Comment(s): YEARS AGO, HAD "NERVOUS BREAKDOWN." Smoking Status: Never smoker Past Alcohol Use History: None Reported Past Drug Use History: None Reported - Past Family History Father Family Medical History: Myocardial Infarction ([place]) Additional Family Medical History / Comment(s): Bad hip, enlarged heart Mother Family Medical History: COPD Additional Family Medical History / Comment(s): PNA Medications and Allergies Home Medications Medication Instructions Recorded Confirmed Type ALPRAZolam [Xanax] 1.5 mg PO HS 09/06/14 12/21/17 History Aspirin 81 mg PO DAILY 09/06/14 12/21/17 History Diltiazem HCl [Diltiazem 24Hr ER] 120 mg PO DAILY 09/06/14 12/21/17 History Propylene Glycol/Peg 400/Pf 1 dropper BOTH EYES BID 06/01/17 12/21/17 History [Systane 0.3-0.4% Eye Drops] Ergocalciferol (Vitamin D2) 50,000 unit PO MO 11/15/17 12/21/17 History [Vitamin D2] Loperamide HCl [Imodium A-D] 2 - 4 mg PO QID PRN 12/21/17 12/21/17 History Ranitidine HCl [Zantac] 150 mg PO BID 12/21/17 12/21/17 History Allergies Allergy/AdvReac Type Severity Reaction Status Date / Time clindamycin HCl Allergy Intermediate Rash/Hives Verified 12/21/17 22:31 [From Cleocin] clindamycin palmitate HCl Allergy Intermediate Rash/Hives Verified 12/21/17 22: 31 [From Cleocin] clindamycin phosphate Allergy Intermediate Rash/Hives Verified 12/21/17 22:31 [From Cleocin] Sulfa (Sulfonamide Allergy Intermediate Rash/Hives Verified 12/21/17 22:31 Antibiotics) cefuroxime [From Ceftin] Allergy Unknown Unknown-OBTAINED Verified 12/21/17 22: [address] [facility]. clarithromycin [From Biaxin] Allergy Unknown Unknown-OBTAINED Verified 12/21/17 22:[address] [facility] ezetimibe [From Zetia] Allergy Unknown Unknown-OBTAINED Verified 12/21/17 22:[address] [facility] ofloxacin [From Floxin] Allergy Unknown Unknown-OBTAINED Verified 12/21/17 22:[address] [facility] Jfvsxoy-Itn-Gpg Reductase Allergy Unknown Unknown-OBTAINED Verified 12/21/17 22: [address] [facility] OFFICE sulfamethoxazole Allergy Unknown Unknown Verified 12/21/17 22:31 [From Bactrim] trimethoprim [From Bactrim] Allergy Unknown Unknown Verified 12/21/17 22:31 Physical Exam Vitals: Vital Signs Temp Pulse Resp BP Pulse Ox 12/23/17 07:55 97.2 F L 76 16 122/72 95 12/23/17 00:05 97.9 F 80 16 105/63 93 L 12/22/17 20:00 98.8 F 67 17 127/76 95 12/22/17 15:00 98.2 F 68 16 128/70 98 Intake and Output 12/22/17 12/23/17 12/23/17 22:59 06:59 14:59 Intake Total 700 1225 Output Total 520 Balance 700 705 Intake: Intake, IV Titration 450 685 Amount Sodium Chloride 0.9% 1, 450 685 000 ml @ 125 mls/hr IV . Q8H [facility] Rx#:[id number] Oral 250 540 Output: Urine 520 Other: Voiding Method Toilet Toilet Toilet # Voids 2 2 # Bowel Movements 0 0 # Emeses 0 Weight 65.771 kg Head normocephalic Neck supple Lungs clear to auscultation bilaterally no wheezing or crackles Heart regular rate and rhythm S1-S2, no rub or gallop Abdomen is soft nontender nondistended positive bowel sounds no hepatosplenomegaly Extremities no edema Neuro alert and orientated to 3 Results CBC & Chem 7: 12/23/17 06:56 12/23/17 06:56 Labs: Abnormal Lab Results - Last 24 Hours (Table) 12/23/17 Range/Units 06:56 Chloride 108 H (98-107) mmol/L Total Protein 5.3 L (6.3-8.2) g/dL Albumin 3.2 L (3.5-5.0) g/dL Microbiology - Last 24 Hours (Table) 12/22/17 Unknown Urine Culture - Preliminary Urine,Clean Catch Thrombosis Risk Factor Assmnt - Choose All That Apply Each Risk Factor Represents 3 Points: Age 75 years or older Thrombosis Risk Factor Assessment Total Risk Factor Score: 3 Thrombosis Risk Factor Assessment Level: Moderate Risk Assessment and Plan Assessment: 1. Acute pancreatitis: Elevated pancreatic enzymes on admission now normalized. Computed tomography scan of the abdomen was unremarkable. Exact etiology is unclear patient possibly passed a gallstone. Patient seen by GI service. They're recommending patient to continue low-fat diet and is stable for discharge. The recommending follow-up in 3-4 weeks 2. UTI: Urine culture pending. Patient will be placed on amoxicillin at time of discharge 3. Essential hypertension Time with Patient: Greater than 30 (Greater than 50% of the total time spent in counseling and coordination of care.I performed an examination of the patient and discussed their management with the physician Hand Hose Cutter. I have reviewed the Physician Hand Hose Cutter's notes and agree with the documented findings and plan of care)
--- NOTE | 2017-12-23 14:24 | P.DS ---
Providers Date of admission: 12/22/17 03:30 Expected date of discharge: 12/23/17 Attending physician: Stalin Duong Primary care physician: Stalin Duong Hospital Course: Discharge diagnosis 1. Acute pancreatitis: Elevated pancreatic enzymes on admission now normalized. Computed tomography scan of the abdomen was unremarkable. Exact etiology is unclear patient possibly passed a gallstone. Patient seen by GI service. They're recommending patient to continue low-fat diet and is stable for discharge. The recommending follow-up in 3-4 weeks 2. UTI: Urine culture pending. Patient will be placed on amoxicillin at time of discharge 3. Essential hypertension Hospital course This is a 77-year-old female with a known past medical history of hypertension and osteoarthritis. Patient also has a history of cholecystectomy due to cholelithiasis. Patient presented to the emergency room with upper abdominal discomfort and not feeling well for the last couple months. She had a few episodes of diarrhea. She took Imodium. Patient reports the pain is achy in the bilateral upper quadrants of the abdomen. Tried taking Zantac but symptoms kept getting worse. Patient admits to some nausea no vomiting. Patient denies any fever chills or sweats. Denies any chest pain or shortness of breath. Patient's symptoms have improved. Her amylase and lipase have normalized. Computed tomography scan of the abdomen was unremarkable. Patient seen by GI service. Possibly patient had passed a stone during her symptoms. She does have a history of a cholecystectomy. Patient also showed evidence of a UTI urine culture is pending. We'll follow-up with those results in the office. Until then we'll place patient on a metal amoxicillin. She does have multiple medication ALLERGIES. She has had good results with amoxicillin the past. Patient is medical stable for discharge. Please refer to chart for any further details. I performed an examination of the patient and discussed their management with the physician Tower Watchman. I have reviewed the Physician Tower Watchman's notes and agree with the documented findings and plan of care Patient Condition at Discharge: Stable Plan - Discharge Summary New Discharge Prescriptions: New Amoxicillin 500 mg PO Q8H #21 capsule Continue Diltiazem HCl [Diltiazem 24Hr ER] 120 mg PO DAILY Aspirin 81 mg PO DAILY ALPRAZolam [Xanax] 1.5 mg PO HS Propylene Glycol/Peg 400/Pf [Systane 0.3-0.4% Eye Drops] 1 dropper BOTH EYES BID Ergocalciferol (Vitamin D2) [Vitamin D2] 50,000 unit PO MO Ranitidine HCl [Zantac] 150 mg PO BID Loperamide HCl [Imodium A-D] 2 - 4 mg PO QID PRN PRN Reason: Diarrhea Discharge Medication List ALPRAZolam [Xanax] 1.5 mg PO HS 09/06/14 [History] Aspirin 81 mg PO DAILY 09/06/14 [History] Diltiazem HCl [Diltiazem 24Hr ER] 120 mg PO DAILY 09/06/14 [History] Propylene Glycol/Peg 400/Pf [Systane 0.3-0.4% Eye Drops] 1 dropper BOTH EYES BID 06/01/17 [History] Ergocalciferol (Vitamin D2) [Vitamin D2] 50,000 unit PO MO 11/15/17 [History] Loperamide HCl [Imodium A-D] 2 - 4 mg PO QID PRN 12/21/17 [History] Ranitidine HCl [Zantac] 150 mg PO BID 12/21/17 [History] Amoxicillin 500 mg PO Q8H #21 capsule 12/23/17 [Rx] Follow up Appointment(s)/Referral(s): Lyn Ryan MD [STAFF PHYSICIAN] - 01/24/18 4:00 pm Stalin Duong MD [Primary Care Provider] - 1 Week Patient Instructions/Handouts: Pancreatitis (DC), Low Fat Diet (GEN) Activity/Diet/Wound Care/Special Instructions: Diet: low fat Activity: as tolerated Discharge Disposition: HOME SELF-CARE
[2017-12-23 15:12] VITALS: BP 115/69; PULSE 75; TEMP 98.8
[2018-01-20] MEDS ORDERED: ERGOCALCIFEROL 50,000 UNIT CAP PO SCH (09:00)
== END 2017-12-23 15:20 | disposition home or self-care (01) | DRG 439 ==
LOC: EC 21:50 → 3SUR 12-22 03:30
PROVIDERS: ADMIT Internal Medicine; ATTEND Internal Medicine
DX: K85.90 Acute pancreatitis without necrosis or infection, unspecified (principal); N39.0 Urinary tract infection, site not specified; I10 Essential (primary) hypertension; F41.9 Anxiety disorder, unspecified; K21.9 Gastro-esophageal reflux disease without esophagitis; Z90.49 Acquired absence of other specified parts of digestive tract; Z90.710 Acquired absence of both cervix and uterus; Z79.82 Long term (current) use of aspirin; Z82.49 Family history of ischemic heart disease and other diseases of the circulatory system; Z82.5 Family history of asthma and other chronic lower respiratory diseases; Z79.899 Other long term (current) drug therapy; Z88.1 Allergy status to other antibiotic agents; Z88.3 Allergy status to other anti-infective agents; Z88.2 Allergy status to sulfonamides; Z88.8 Allergy status to other drugs, medicaments and biological substances
CPT/HCPCS: 36415; 74177; 80053; 81001; 82150; 83690; 84484; 85025; 87086; 93005; 99285

== ENCOUNTER 2018-06-24 23:42 | Emergency (ER) | payer MEDICARE, BC ==
[2018-06-24 23:55] VITALS: RESP 18
--- NOTE | 2018-06-25 00:09 | ED ---
Dizziness HPI - General Chief Complaint: Dizziness Stated Complaint: Dizziness Time Seen by Provider: 06/24/18 23:48 Source: EMS Mode of arrival: EMS Limitations: no limitations - History of Present Illness MD Complaint: dizziness -: hour(s) Timing: gradual onset Description: off-balance, difficulty walking History of Same: No History of Trauma: No Severity: moderate Improves With: remaining still Worsens With: movement - Related Data Home Medications Medication Instructions Recorded Confirmed ALPRAZolam [Xanax] 1.5 mg PO HS 09/06/14 06/24/18 Aspirin 81 mg PO DAILY 09/06/14 06/24/18 Diltiazem HCl [Diltiazem 24Hr ER] 120 mg PO DAILY 09/06/14 06/24/18 Propylene Glycol/Peg 400/Pf 1 dropper BOTH EYES BID 06/01/17 06/24/18 [Systane 0.3-0.4% Eye Drop] Ergocalciferol (Vitamin D2) 50,000 unit PO MO 11/15/17 06/24/18 [Vitamin D2] Loperamide HCl [Imodium A-D] 2 - 4 mg PO QID PRN 12/21/17 06/24/18 Ranitidine HCl [Zantac] 150 mg PO BID 12/21/17 06/24/18 Previous Rx's Medication Instructions Recorded Amoxicillin 500 mg PO Q8H #21 capsule 06/25/18 Nitrofurantoin Monohyd/M-Cryst 100 mg PO Q12HR #6 cap 06/25/18 [Macrobid] Allergies Allergy/AdvReac Type Severity Reaction Status Date / Time clindamycin HCl Allergy Intermediate Rash/Hives Verified 06/24/18 23:55 [From Cleocin] clindamycin palmitate HCl Allergy Intermediate Rash/Hives Verified 06/24/18 23: 55 [From Cleocin] clindamycin phosphate Allergy Intermediate Rash/Hives Verified 06/24/18 23:55 [From Cleocin] Sulfa (Sulfonamide Allergy Intermediate Rash/Hives Verified 06/24/18 23:55 Antibiotics) cefuroxime [From Ceftin] Allergy Unknown Unknown-OBTAINED Verified 06/24/18 23: [address] [facility] OFF[facility]. clarithromycin [From Biaxin] Allergy Unknown Unknown-OBTAINED Verified 06/24/18 23:[address] [facility] ezetimibe [From Zetia] Allergy Unknown Unknown-OBTAINED Verified 06/24/18 23:[address] [facility] ofloxacin [From Floxin] Allergy Unknown Unknown-OBTAINED Verified 06/24/18 23:[address] [facility] Sazkrpp-Ykh-Hcz Reductase Allergy Unknown Unknown-OBTAINED Verified 06/24/18 23: [address] [facility] OFFICE sulfamethoxazole Allergy Unknown Unknown Verified 06/24/18 23:55 [From Bactrim] trimethoprim [From Bactrim] Allergy Unknown Unknown Verified 06/24/18 23:55 Review of Systems ROS Statement: Those systems with pertinent positive or pertinent negative responses have been documented in the HPI. ROS Other: All systems not noted in ROS Statement are negative. Constitutional: Denies: fever, chills Respiratory: Denies: cough, dyspnea Cardiovascular: Denies: chest pain, palpitations, edema Gastrointestinal: Denies: abdominal pain, vomiting, diarrhea Musculoskeletal: Denies: back pain Skin: Denies: rash, lesions Neurological: Denies: headache, weakness, numbness Past Medical History Past Medical History: Chest Pain / Angina, GERD/Reflux, Hypertension, Osteoarthritis (OA) Additional Past Medical History / Comment(s): irreg heart beat. History of Any Multi-Drug Resistant Organisms: None Reported Past Surgical History: Adenoidectomy, Cholecystectomy, Heart Catheterization, Hysterectomy, Tonsillectomy Additional Past Surgical History / Comment(s): Cataracts, ORIF RT ANKLE. HEART CATH 04/29/17., VAG HYST & A & P REPAIR(MAY 2017) Past Anesthesia/Blood Transfusion Reactions: No Reported Reaction Past Psychological History: Anxiety Smoking Status: Never smoker Past Alcohol Use History: None Reported Past Drug Use History: None Reported - Past Family History Father Family Medical History: Myocardial Infarction ([place]) Additional Family Medical History / Comment(s): Bad hip, enlarged heart Mother Family Medical History: COPD Additional Family Medical History / Comment(s): PNA General Exam Limitations: no limitations Course Vital Signs 06/24/18 23:43 Temperature 98.1 F Pulse Rate 73 Respiratory 18 Rate Blood Pressure 164/74 O2 Sat by Pulse 99 Oximetry EKG Findings - EKG Results: EKG: interpreted by ERMD, WNL, sinus rhythm (Rate 70 bpm), normal axis, normal QRS, normal ST/T - [place], Pacemaker, Normal: Normal tracing: normal tracing Medical Decision Making - Lab Data Result diagrams: 06/24/18 00:01 06/25/18 00:01 Lab Results 06/24/18 06/25/18 06/25/18 Range/Units 00:01 00:01 00:01 WBC 6.4 (3.8-10.6) k/uL RBC 5.00 (3.80-5.40) m/uL Hgb 14.1 (11.4-16.0) gm/dL Hct 43.5 (34.0-46.0) % MCV 87.0 (80.0-100.0) fL MCH 28.3 (25.0-35.0) pg MCHC 32.5 (31.0-37.0) g/dL RDW 13.6 (11.5-15.5) % Plt Count 234 (150-450) k/uL Neutrophils % 62 % Lymphocytes % 25 % Monocytes % 7 % Eosinophils % 4 % Basophils % 0 % Neutrophils # 3.9 (1.3-7.7) k/uL Lymphocytes # 1.6 (1.0-4.8) k/uL Monocytes # 0.5 (0-1.0) k/uL Eosinophils # 0.2 (0-0.7) k/uL Basophils # 0.0 (0-0.2) k/uL Sodium 138 (137-145) mmol/L Potassium 4.1 (3.5-5.1) mmol/L Chloride 104 (98-107) mmol/L Carbon Dioxide 27 (22-30) mmol/L Anion Gap 7 mmol/L BUN 16 (7-17) mg/dL Creatinine 0.67 (0.52-1.04) mg/dL Est GFR (CKD-EPI)AfAm >90 (>60 ml/min/1.73 sqM) Est GFR (CKD-EPI)NonAf 86 (>60 ml/min/1.73 sqM) Glucose 93 (74-99) mg/dL Plasma Lactic Acid Sandeep (0.7-2.0) mmol/L Calcium 9.3 (8.4-10.2) mg/dL Total Bilirubin 0.7 (0.2-1.3) mg/dL AST 29 (14-36) U/L ALT 30 (9-52) U/L Alkaline Phosphatase 87 (38-126) U/L Troponin I <0.012 (0.000-0.034) ng/mL Total Protein 6.8 (6.3-8.2) g/dL Albumin 4.2 (3.5-5.0) g/dL Urine Color Urine Appearance (Clear) Urine pH (5.0-8.0) Ur Specific [place] (1.001-1.035) Urine Protein (Negative) Urine Glucose (UA) (Negative) Urine Ketones (Negative) Urine Blood (Negative) Urine Nitrite (Negative) Urine Bilirubin (Negative) Urine Urobilinogen (<2.0) mg/dL Ur Leukocyte Esterase (Negative) Urine RBC (0-5) /hpf Urine WBC (0-5) /hpf Ur Squamous Epith Cells (0-4) /hpf Urine Bacteria (None) /hpf Urine Mucus (None) /hpf 06/25/18 06/25/18 Range/Units 00:16 00:55 WBC (3.8-10.6) k/uL RBC (3.80-5.40) m/uL Hgb (11.4-16.0) gm/dL Hct (34.0-46.0) % MCV (80.0-100.0) fL MCH (25.0-35.0) pg MCHC (31.0-37.0) g/dL RDW (11.5-15.5) % Plt Count (150-450) k/uL Neutrophils % % Lymphocytes % % Monocytes % % Eosinophils % % Basophils % % Neutrophils # (1.3-7.7) k/uL Lymphocytes # (1.0-4.8) k/uL Monocytes # (0-1.0) k/uL Eosinophils # (0-0.7) k/uL Basophils # (0-0.2) k/uL Sodium (137-145) mmol/L Potassium (3.5-5.1) mmol/L Chloride (98-107) mmol/L Carbon Dioxide (22-30) mmol/L Anion Gap mmol/L BUN (7-17) mg/dL Creatinine (0.52-1.04) mg/dL Est GFR (CKD-EPI)AfAm (>60 ml/min/1.73 sqM) Est GFR (CKD-EPI)NonAf (>60 ml/min/1.73 sqM) Glucose (74-99) mg/dL Plasma Lactic Acid Sandeep 1.2 (0.7-2.0) mmol/L Calcium (8.4-10.2) mg/dL Total Bilirubin (0.2-1.3) mg/dL AST (14-36) U/L ALT (9-52) U/L Alkaline Phosphatase (38-126) U/L Troponin I (0.000-0.034) ng/mL Total Protein (6.3-8.2) g/dL Albumin (3.5-5.0) g/dL Urine Color Light Yellow Urine Appearance Clear (Clear) Urine pH 5.5 (5.0-8.0) Ur Specific [place] 1.006 (1.001-1.035) Urine Protein Negative (Negative) Urine Glucose (UA) Negative (Negative) Urine Ketones Trace H (Negative) Urine Blood Negative (Negative) Urine Nitrite Positive H (Negative) Urine Bilirubin Negative (Negative) Urine Urobilinogen <2.0 (<2.0) mg/dL Ur Leukocyte Esterase Large H (Negative) Urine RBC 1 (0-5) /hpf Urine WBC 23 H (0-5) /hpf Ur Squamous Epith Cells <1 (0-4) /hpf Urine Bacteria Rare H (None) /hpf Urine Mucus Rare H (None) /hpf Disposition Clinical Impression: Weakness generalized, Urinary tract infection Disposition: HOME SELF-CARE Condition: Good Instructions: Urinary Tract Infection in Women (ED), Dizziness (ED) Prescriptions: Amoxicillin 500 mg PO Q8H #21 capsule Nitrofurantoin Monohyd/M-Cryst [Macrobid] 100 mg PO Q12HR #6 cap Is patient prescribed a controlled substance at d/c from ED?: No Referrals: Stalin Duong MD [Primary Care Provider] - 1-2 days
[2018-06-25 00:32] LABS: Basophils % (A) 0 %; Eosinophils # (A) 0.2 k/uL (0-0.7); Eosinophils % (A) 4 %; HCT 43.5 % (34.0-46.0); HGB 14.1 gm/dL (11.4-16.0); Lymphocytes # (A) 1.6 k/uL (1.0-4.8); Lymphocytes % (A) 25 %; MCH 28.3 pg (25.0-35.0); MCHC 32.5 g/dL (31.0-37.0); Mean Platelet Volume 7.3; Monocytes # (A) 0.5 k/uL (0-1.0); Monocytes % (A) 7 %; Neutrophils # (A) 3.9 k/uL (1.3-7.7); Neutrophils % (A) 62 %; Platelet Count 234 k/uL (150-450); RDW 13.6 % (11.5-15.5); WBC 6.4 k/uL (3.8-10.6)
[2018-06-25 00:38] LABS: ALT 30 U/L (9-52); AST 29 U/L (14-36); Albumin 4.2 g/dL (3.5-5.0); Alkaline Phosphatase 87 U/L (38-126); Anion Gap 7 mmol/L; Blood Urea Nitrogen 16 mg/dL (7-17); Calcium 9.3 mg/dL (8.4-10.2); Carbon Dioxide 27 mmol/L (22-30); Chloride 104 mmol/L (98-107); Glucose 93 mg/dL (74-99); Potassium 4.1 mmol/L (3.5-5.1); Sodium 138 mmol/L (137-145); Total Bilirubin 0.7 mg/dL (0.2-1.3); Total Protein 6.8 g/dL (6.3-8.2)
--- NOTE | 2018-06-25 00:47 | XR ---
EXAMINATION TYPE: XR chest 1V portable DATE OF EXAM: 06/25/2018 COMPARISON: 03/08/2017 HISTORY: Angina. Hypertension. Dizziness. TECHNIQUE: Single frontal view of the chest is obtained. FINDINGS: There is no heart failure. There are some small linear density at the left lung base. The other lung elise are clear. There is no heart failure. There are chest leads. There are no hilar mas ses. IMPRESSION: Subsegmental atelectasis at the left lung base increased slightly compared to old exam. Normal heart.
[2018-06-25 01:07] LABS: Appearance,Urine Clear (Clear); Bacteria,Urine Rare /hpf; Bilirubin,Urine Negative (Negative); Blood,Urine Negative (Negative); Color,Urine Light Yellow; Glucose,Urine (UA) Negative (Negative); Ketones,Urine Trace (Negative); Leukocyte Esterase,Urine Large (Negative); Mucus,Urine Rare /hpf; Nitrite,Urine Positive (Negative); PH, Urine 5.5 (5.0-8.0); Protein,Urine Negative (Negative); RBC,Urine 1 /hpf (0-5); Specific Gravity,Urine 1.006 (1.001-1.035); Squamous Epithelial Cell,Urine <1 /hpf (0-4); Urobilinogen,Urine <2.0 mg/dL (<2.0); WBC,Urine 23 /hpf (0-5)
[2018-06-25] MEDS ORDERED: NITROFURANTOIN MONOHYD/M-CRYST 100 MG CAP PO STA (01:22)
--- NOTE | 2018-06-25 02:18 | CT ---
EXAMINATION TYPE: CT abdomen pelvis wo con DATE OF EXAM: 06/25/2018 COMPARISON: 01/31/2013 HISTORY: pain CT DLP: 383 mGycm Automated exposure control for dose reduction was used. TECHNIQUE: Helical acquisition of images was performed from the lung bases through the pelvis. FINDINGS: There is a small area of atelectasis right posterior lung base. There is no pleural effusion. There a re clips from cholecystectomy. Heart size is normal. There is no pericardial effusion. Spleen appears normal. There is no pancreatic mass. There is 1 cm calcification in the left lobe of the liver that is probably granuloma. There are similar calcifications at the inferior right lobe of the liver. There is no adrenal mass. There are bilateral renal parapelvic cysts. Abdominal aorta is atheromatous . There is no retroperitoneal adenopathy. Ureters are not dilated. There are diverticula in the sigmo id colon. I see no sign of diverticulitis. There are numerous phleboliths in the pelvis. Bladder dist ends smoothly. There is no inguinal hernia. There is no sign of a bowel obstruction. The appendix shalini ears normal. The lumbar spine is intact. Bony pelvis appears intact. There is hysterectomy. There is no evidence of a pelvic mass. There is no ascites. There is no sign of free air. There is no mesenteric edema or adenopathy. Abdominal soft tissues are unremarkable. IMPRESSION: THERE IS SIGMOID DIVERTICULOSIS WITHOUT DIVERTICULITIS. NORMAL APPENDIX. RENAL PARAPELVIC CYSTS. NO RENAL OBSTRUCTION SEEN. KIDNEYS ARE STABLE COMPARED TO OLD CT SCAN. ATHERO SCLEROTIC VASCULAR DISEASE.
[2018-06-25] MEDS ORDERED: MAGNESIUM CITRATE 296 ML BOTTLE PO ONE (02:26)
[2018-06-25 02:35] VITALS: BP 143/77; PULSE 83; TEMP 97
--- NOTE | 2018-06-27 05:28 | CDI ---
Documentation Clarification OP Dear Dr. Melany Coronado Please do addendum to ED report for missing Physical examination. Thank you, Jerry Nguyen Operating Room Surgical Technologist If you have any questions, please contact Preschool Program Director at [phone] [facility]
== END 2018-06-25 02:34 | disposition home or self-care (01) ==
LOC: EC 23:42
DX: N39.0 Urinary tract infection, site not specified (principal); R53.1 Weakness; K21.9 Gastro-esophageal reflux disease without esophagitis; I10 Essential (primary) hypertension; F41.9 Anxiety disorder, unspecified; Z95.818 Presence of other cardiac implants and grafts; Z79.82 Long term (current) use of aspirin; Z79.899 Other long term (current) drug therapy; Z88.1 Allergy status to other antibiotic agents; Z88.2 Allergy status to sulfonamides; Z88.8 Allergy status to other drugs, medicaments and biological substances
CPT/HCPCS: 36415; 71045; 74176; 80053; 81001; 83605; 84484; 85025; 93005; 99285

== ENCOUNTER 2018-09-15 12:20 | Observation (INO) | payer MEDICARE, BC ==
[2018-09-15] MEDS ORDERED: ASPIRIN 81 MG PO STA (12:35)
[2018-09-15] MEDS ORDERED: NITROGLYCERIN OINT 1 INCH/GM PACKET TOPICAL STA (12:35)
--- NOTE | 2018-09-15 12:40 | ED ---
General Adult HPI - General Stated complaint: chest pain Time Seen by Provider: 09/15/18 12:31 Source: patient, RN notes reviewed Limitations: no limitations - History of Present Illness Initial comments: Patient is a pleasant 78-year-old female presenting to the emergency Department with complaints of chest discomfort. Onset of symptoms was this morning. Patient took her blood pressure that was as high as 185/89. Patient states discomfort was hard to describe and was only mild. No discomfort at this time. No associated dyspnea, nausea, or diaphoresis. No radiation of discomfort. - Related Data Home Medications Medication Instructions Recorded Confirmed ALPRAZolam [Xanax] 1.5 mg PO HS 09/06/14 09/15/18 Aspirin 81 mg PO DAILY 09/06/14 09/15/18 Diltiazem HCl [Diltiazem 24Hr ER] 120 mg PO DAILY 09/06/14 09/15/18 Propylene Glycol/Peg 400/Pf 1 dropper BOTH EYES BID 06/01/17 09/15/18 [Systane 0.3-0.4% Eye Drop] Ranitidine HCl [Zantac] 150 mg PO BID 12/21/17 09/15/18 Docusate [Colace] 100 mg PO DAILY 09/15/18 09/15/18 Allergies Allergy/AdvReac Type Severity Reaction Status Date / Time clindamycin HCl Allergy Intermediate Rash/Hives Verified 09/15/18 12:48 [From Cleocin] clindamycin palmitate HCl Allergy Intermediate Rash/Hives Verified 09/15/18 12: 48 [From Cleocin] clindamycin phosphate Allergy Intermediate Rash/Hives Verified 09/15/18 12:48 [From Cleocin] Sulfa (Sulfonamide Allergy Intermediate Rash/Hives Verified 09/15/18 12:48 Antibiotics) cefuroxime [From Ceftin] Allergy Unknown Unknown-OBTAINED Verified 09/15/18 12: [address] [facility] OFF[facility]. clarithromycin [From Biaxin] Allergy Unknown Unknown-OBTAINED Verified 09/15/18 12:[address] [facility] OFFICE ezetimibe [From Zetia] Allergy Unknown Unknown-OBTAINED Verified 09/15/18 12:[address] [facility] OFF[facility] ofloxacin [From Floxin] Allergy Unknown Unknown-OBTAINED Verified 09/15/18 12:[address] [facility] OFFICE Lxafczu-Mbj-Sip Reductase Allergy Unknown Unknown-OBTAINED Verified 09/15/18 12: [address] [facility] OFFICE sulfamethoxazole Allergy Unknown Unknown Verified 09/15/18 12:48 [From Bactrim] trimethoprim [From Bactrim] Allergy Unknown Unknown Verified 09/15/18 12:48 Review of Systems ROS Statement: Those systems with pertinent positive or pertinent negative responses have been documented in the HPI. ROS Other: All systems not noted in ROS Statement are negative. Constitutional: Denies: fever Eyes: Denies: eye pain ENT: Denies: ear pain Respiratory: Denies: cough Cardiovascular: Reports: chest pain Endocrine: Denies: fatigue Gastrointestinal: Denies: abdominal pain Genitourinary: Denies: dysuria Musculoskeletal: Denies: back pain Skin: Denies: rash Neurological: Denies: weakness Past Medical History Past Medical History: Chest Pain / Angina, GERD/Reflux, Hypertension, Osteoarthritis (OA) Additional Past Medical History / Comment(s): irreg heart beat. History of Any Multi-Drug Resistant Organisms: None Reported Past Surgical History: Adenoidectomy, Cholecystectomy, Heart Catheterization, Hysterectomy, Tonsillectomy Additional Past Surgical History / Comment(s): Cataracts, ORIF RT ANKLE. HEART CATH 04/29/17., VAG HYST & A & P REPAIR(MAY 2017) Past Anesthesia/Blood Transfusion Reactions: No Reported Reaction Past Psychological History: Anxiety Smoking Status: Never smoker Past Alcohol Use History: None Reported Past Drug Use History: None Reported - Past Family History Father Family Medical History: Myocardial Infarction ([place]) Additional Family Medical History / Comment(s): Bad hip, enlarged heart Mother Family Medical History: COPD Additional Family Medical History / Comment(s): PNA General Exam Limitations: no limitations General appearance: alert, in no apparent distress Head exam: Present: atraumatic Eye exam: Present: normal appearance, PERRL ENT exam: Present: normal oropharynx Neck exam: Present: normal inspection Respiratory exam: Present: normal lung sounds bilaterally. Absent: chest wall tenderness Cardiovascular Exam: Present: regular rate, normal rhythm Expanded Peripheral pulses: 2+: Radial (R), Radial (L), Dorsalis Pedis (R), Dorsalis Pedis (L) GI/Abdominal exam: Present: soft. Absent: tenderness Extremities exam: Present: other (Walking boot and right lower leg). Absent: pedal edema, calf tenderness Neurological exam: Present: alert Psychiatric exam: Present: normal affect, normal mood Skin exam: Present: normal color. Absent: rash Course Vital Signs 09/15/18 12:36 Temperature 98.2 F Pulse Rate 75 Respiratory 18 Rate Blood Pressure 133/62 O2 Sat by Pulse 98 Oximetry EKG Findings - EKG Comments: EKG Findings:: Normal sinus rhythm 65. LA 124. QRS 82. QT 394. QTC 49. Normal axis. Normal QRS. No acute ST change. Medical Decision Making - Medical Decision Making Patient reevaluated and resting comfortably. Patient updated on results and plan. Case was discussed in detail with Dr. Duong, who will admit his patient. - Lab Data Result diagrams: 09/15/18 12:25 09/15/18 12:25 Lab Results 09/15/18 09/15/18 09/15/18 Range/Units 12:25 12:25 12:25 WBC 4.8 (3.8-10.6) k/uL RBC 4.83 (3.80-5.40) m/uL Hgb 13.5 (11.4-16.0) gm/dL Hct 42.5 (34.0-46.0) % MCV 88.0 (80.0-100.0) fL MCH 28.0 (25.0-35.0) pg MCHC 31.8 (31.0-37.0) g/dL RDW 13.4 (11.5-15.5) % Plt Count 228 (150-450) k/uL Neutrophils % 66 % Lymphocytes % 20 % Monocytes % 6 % Eosinophils % 5 % Basophils % 0 % Neutrophils # 3.1 (1.3-7.7) k/uL Lymphocytes # 1.0 (1.0-4.8) k/uL Monocytes # 0.3 (0-1.0) k/uL Eosinophils # 0.2 (0-0.7) k/uL Basophils # 0.0 (0-0.2) k/uL PT (9.0-12.0) sec INR (<1.2) APTT (22.0-30.0) sec D-Dimer (<0.60) mg/L FEU Sodium 141 (137-145) mmol/L Potassium 4.3 (3.5-5.1) mmol/L Chloride 106 (98-107) mmol/L Carbon Dioxide 29 (22-30) mmol/L Anion Gap 6 mmol/L BUN 14 (7-17) mg/dL Creatinine 0.59 (0.52-1.04) mg/dL Est GFR (CKD-EPI)AfAm >90 (>60 ml/min/1.73 sqM) Est GFR (CKD-EPI)NonAf 89 (>60 ml/min/1.73 sqM) Glucose 93 (74-99) mg/dL Calcium 9.2 (8.4-10.2) mg/dL Magnesium 2.2 (1.6-2.3) mg/dL Total Bilirubin 0.5 (0.2-1.3) mg/dL AST 27 (14-36) U/L ALT 31 (9-52) U/L Alkaline Phosphatase 92 (38-126) U/L Total Creatine Kinase 42 (30-135) U/L CK-MB (CK-2) 0.3 (0.0-2.4) ng/mL CK-MB (CK-2) Rel Index 0.7 Troponin I <0.012 (0.000-0.034) ng/mL Total Protein 6.2 L (6.3-8.2) g/dL Albumin 3.9 (3.5-5.0) g/dL Amylase 90 (30-110) U/L Lipase 237 (23-300) U/L 09/15/18 Range/Units 12:25 WBC (3.8-10.6) k/uL RBC (3.80-5.40) m/uL Hgb (11.4-16.0) gm/dL Hct (34.0-46.0) % MCV (80.0-100.0) fL MCH (25.0-35.0) pg MCHC (31.0-37.0) g/dL RDW (11.5-15.5) % Plt Count (150-450) k/uL Neutrophils % % Lymphocytes % % Monocytes % % Eosinophils % % Basophils % % Neutrophils # (1.3-7.7) k/uL Lymphocytes # (1.0-4.8) k/uL Monocytes # (0-1.0) k/uL Eosinophils # (0-0.7) k/uL Basophils # (0-0.2) k/uL PT 10.2 (9.0-12.0) sec INR 0.9 (<1.2) APTT 26.1 (22.0-30.0) sec D-Dimer 0.47 (<0.60) mg/L FEU Sodium (137-145) mmol/L Potassium (3.5-5.1) mmol/L Chloride (98-107) mmol/L Carbon Dioxide (22-30) mmol/L Anion Gap mmol/L BUN (7-17) mg/dL Creatinine (0.52-1.04) mg/dL Est GFR (CKD-EPI)AfAm (>60 ml/min/1.73 sqM) Est GFR (CKD-EPI)NonAf (>60 ml/min/1.73 sqM) Glucose (74-99) mg/dL Calcium (8.4-10.2) mg/dL Magnesium (1.6-2.3) mg/dL Total Bilirubin (0.2-1.3) mg/dL AST (14-36) U/L ALT (9-52) U/L Alkaline Phosphatase (38-126) U/L Total Creatine Kinase (30-135) U/L CK-MB (CK-2) (0.0-2.4) ng/mL CK-MB (CK-2) Rel Index Troponin I (0.000-0.034) ng/mL Total Protein (6.3-8.2) g/dL Albumin (3.5-5.0) g/dL Amylase (30-110) U/L Lipase (23-300) U/L - Radiology Data Radiology results: image reviewed (Chest x-ray shows no acute process) Disposition Clinical Impression: Chest pain Disposition: ADMITTED IP TO THIS [facility] Is patient prescribed a controlled substance at d/c from ED?: No Referrals: Stalin Duong MD [Primary Care Provider] - 1-2 days Decision Time: 14:33
[2018-09-15 12:58] LABS: Basophils % (A) 0 %; Eosinophils # (A) 0.2 k/uL (0-0.7); Eosinophils % (A) 5 %; HCT 42.5 % (34.0-46.0); HGB 13.5 gm/dL (11.4-16.0); Lymphocytes % (A) 20 %; MCHC 31.8 g/dL (31.0-37.0); Mean Platelet Volume 7.2; Monocytes # (A) 0.3 k/uL (0-1.0); Monocytes % (A) 6 %; Neutrophils # (A) 3.1 k/uL (1.3-7.7); Neutrophils % (A) 66 %; Platelet Count 228 k/uL (150-450); RBC 4.83 m/uL (3.80-5.40); RDW 13.4 % (11.5-15.5); WBC 4.8 k/uL (3.8-10.6)
[2018-09-15 13:07] LABS: ALT 31 U/L (9-52); AST 27 U/L (14-36); Albumin 3.9 g/dL (3.5-5.0); Alkaline Phosphatase 92 U/L (38-126); Amylase 90 U/L (30-110); Anion Gap 6 mmol/L; Blood Urea Nitrogen 14 mg/dL (7-17); Calcium 9.2 mg/dL (8.4-10.2); Carbon Dioxide 29 mmol/L (22-30); Chloride 106 mmol/L (98-107); Glucose 93 mg/dL (74-99); Lipase 237 U/L (23-300); Magnesium 2.2 mg/dL (1.6-2.3); Potassium 4.3 mmol/L (3.5-5.1); Sodium 141 mmol/L (137-145); Total Bilirubin 0.5 mg/dL (0.2-1.3); Total Protein 6.2 g/dL (6.3-8.2)
[2018-09-15 13:15] LABS: D-Dimer 0.47 mg/L FEU (<0.60); INR 0.9 (<1.2); Partial Thromboplastin Time 26.1 sec (22.0-30.0); Prothrombin Time 10.2 sec (9.0-12.0)
[2018-09-15 13:23] LABS: Creatine Kinase 42 U/L (30-135)
--- NOTE | 2018-09-15 13:32 | XR ---
EXAMINATION TYPE: XR chest 2V DATE OF EXAM: 09/15/2018 COMPARISON: 06/25/2018 INDICATION: Chest pain TECHNIQUE: Frontal and lateral views of the chest are obtained. FINDINGS: The heart size is normal. The pulmonary vasculature is normal. The lungs are clear. IMPRESSION: 1. No acute pulmonary process.
[2018-09-15 13:36] LABS: Creatine Kinase MB 0.3 ng/mL (0.0-2.4); Troponin I <0.012 ng/mL (0.000-0.034)
[2018-09-15] MEDS ORDERED: NITROGLYCERIN SL TABS 0.4 MG TAB SUBLINGUAL PRN (14:34)
--- NOTE | 2018-09-15 15:04 | P.HPIM ---
History of Present Illness H&P Date: 09/15/18 Chief Complaint: Chest pain This is a 78-year-old female with a known past medical history of hypertension, anxiety, GERD, gastritis and possible gallstone pancreatitis. Patient reports she started having chest pain earlier this morning. It was located on the left side of her chest lasting for about half hour. She reports that the pain did radiate into the right side of her neck. She had been checking her blood pressures at home. And they continued to increase. Her last blood pressure at home was 185/89 she was concerned and came into the ER for further evaluation and treatment. On admission blood pressure was 133/62. Chest pain has resolved. She did take 4 aspirins at home which helped relieve the symptoms. EKG showing normal sinus rhythm first troponin was negative chest x-rays negative lipase was normal d-dimer negative. She reports her last heart catheterization was 1-2 years ago and returned was told that it was normal. She also admits to having a headache. She denies any vision changes, fever or chills or sweats, shortness of breath, nausea or vomiting, bowel movement changes or urinary symptoms. She denies any numbness or tingling laterally on the extremities or any slurred speech. Cardiology is consulted. Continue follow up on cardiac enzymes. Patient does admit to her father passing away of a heart attack around age 58. She denies any hyperlipidemia, diabetes or smoking history. Review of Systems Please refer to HPI otherwise unremarkable Past Medical History Past Medical History: Chest Pain / Angina, GERD/Reflux, Hypertension, Osteoarthritis (OA) Additional Past Medical History / Comment(s): irreg heart beat. History of Any Multi-Drug Resistant Organisms: None Reported Past Surgical History: Adenoidectomy, Cholecystectomy, Heart Catheterization, Hysterectomy, Tonsillectomy Additional Past Surgical History / Comment(s): Cataracts, ORIF RT ANKLE. HEART CATH 04/29/17., VAG HYST & A & P REPAIR(MAY 2017) Past Anesthesia/Blood Transfusion Reactions: No Reported Reaction Past Psychological History: Anxiety Smoking Status: Never smoker Past Alcohol Use History: None Reported Past Drug Use History: None Reported - Past Family History Father Family Medical History: Myocardial Infarction ([place]) Additional Family Medical History / Comment(s): Bad hip, enlarged heart Mother Family Medical History: COPD Additional Family Medical History / Comment(s): PNA Medications and Allergies Home Medications Medication Instructions Recorded Confirmed Type ALPRAZolam [Xanax] 1.5 mg PO HS 09/06/14 09/15/18 History Aspirin 81 mg PO DAILY 09/06/14 09/15/18 History Diltiazem HCl [Diltiazem 24Hr ER] 120 mg PO DAILY 09/06/14 09/15/18 History Propylene Glycol/Peg 400/Pf 1 dropper BOTH EYES BID 06/01/17 09/15/18 History [Systane 0.3-0.4% Eye Drop] Ranitidine HCl [Zantac] 150 mg PO BID 12/21/17 09/15/18 History Docusate [Colace] 100 mg PO DAILY 09/15/18 09/15/18 History Allergies Allergy/AdvReac Type Severity Reaction Status Date / Time clindamycin HCl Allergy Intermediate Rash/Hives Verified 09/15/18 12:48 [From Cleocin] clindamycin palmitate HCl Allergy Intermediate Rash/Hives Verified 09/15/18 12: 48 [From Cleocin] clindamycin phosphate Allergy Intermediate Rash/Hives Verified 09/15/18 12:48 [From Cleocin] Sulfa (Sulfonamide Allergy Intermediate Rash/Hives Verified 09/15/18 12:48 Antibiotics) cefuroxime [From Ceftin] Allergy Unknown Unknown-OBTAINED Verified 09/15/18 12: [address] [facility] OFF[facility]. clarithromycin [From Biaxin] Allergy Unknown Unknown-OBTAINED Verified 09/15/18 12:[address] [facility] OFFICE ezetimibe [From Zetia] Allergy Unknown Unknown-OBTAINED Verified 09/15/18 12:[address] [facility] OFF[facility] ofloxacin [From Floxin] Allergy Unknown Unknown-OBTAINED Verified 09/15/18 12:[address] [facility] OFF[facility] Xchqopr-Aar-Glo Reductase Allergy Unknown Unknown-OBTAINED Verified 09/15/18 12: [address] [facility] OFFICE sulfamethoxazole Allergy Unknown Unknown Verified 09/15/18 12:48 [From Bactrim] trimethoprim [From Bactrim] Allergy Unknown Unknown Verified 09/15/18 12:48 Physical Exam Vitals: Vital Signs Temp Pulse Resp BP Pulse Ox 09/15/18 12:36 98.2 F 75 18 133/62 98 Intake and Output 09/14/18 09/15/1819 22:59 06:59 14:59 Other: Weight 62.596 kg Head normocephalic Neck supple Lungs clear to auscultation bilaterally no wheezing or crackles Heart regular rate and rhythm S1-S2, no rub or gallop Abdomen is soft nontender nondistended positive bowel sounds no hepatosplenomegaly Extremities no edema right foot is in a brace Neuro alert and orientated to 3 Results CBC & Chem 7: 09/15/18 12:25 09/15/18 12:25 Labs: Abnormal Lab Results - Last 24 Hours (Table) 09/15/18 Range/Units 12:25 Total Protein 6.2 L (6.3-8.2) g/dL Assessment and Plan Assessment: 1. Chest pain: Cardiac workup in progress. Cardiology on consult. First troponin negative, d-dimer negative, chest x-ray negative EKG normal sinus rhythm. Continue to follow cardiac enzymes 2. Essential hypertension: Patient reports elevated blood pressures at home. Apparently she does not take the Cardizem every day. She reports that sometimes it makes her blood pressure too low. Patient will be seen by cardiology. Continue to monitor blood pressure. 3. History of GERD and gastritis continue the Zantac 4. Generalized anxiety disorder resume patient's Xanax 5. History of possible gallstone pancreatitis. Lipase is normal. GI prophylaxis Protonix and DVT prophylaxis subcu heparin Time with Patient: Greater than 30 (Greater than 50% of the total time spent in counseling and coordination of care.I performed an examination of the patient and discussed their management with the physician Inspector Line. I have reviewed the Physician Inspector Line's notes and agree with the documented findings and plan of care)
[2018-09-15 18:42] LABS: Creatine Kinase 36 U/L (30-135)
[2018-09-15 18:54] LABS: Creatine Kinase MB 0.2 ng/mL (0.0-2.4); Troponin I <0.012 ng/mL (0.000-0.034)
[2018-09-15] MEDS ORDERED: ACETAMINOPHEN TAB 325 MG TAB PO STA (20:42)
[2018-09-15] MEDS: ARTIFICIAL TEARS-HYPROMELLOSE DROPS 15 ML BTL BOTH EYES SCH (20:57)
[2018-09-15] MEDS: FAMOTIDINE 20 MG TAB PO SCH ×2 (20:59→21:03)
[2018-09-15] MEDS: HEPARIN SODIUM,PORCINE 5,000 UNIT/ML 1 ML VIAL SQ SCH (21:00)
[2018-09-15] MEDS: NITROGLYCERIN OINT 1 INCH/GM PACKET TOPICAL SCH ×2 (21:00→23:57)
[2018-09-15] MEDS ORDERED: ALPRAZolam 0.5 MG TAB PO SCH (21:00)
[2018-09-16 01:27] LABS: Creatine Kinase 33 U/L (30-135)
[2018-09-16 01:45] LABS: Creatine Kinase MB 0.2 ng/mL (0.0-2.4); Troponin I <0.012 ng/mL (0.000-0.034)
[2018-09-16] MEDS: NITROGLYCERIN OINT 1 INCH/GM PACKET TOPICAL SCH (05:29)
[2018-09-16 06:50] LABS: Basophils % (A) 0 %; Eosinophils # (A) 0.3 k/uL (0-0.7); Eosinophils % (A) 8 %; HCT 39.9 % (34.0-46.0); HGB 13.1 gm/dL (11.4-16.0); Lymphocytes # (A) 1.3 k/uL (1.0-4.8); Lymphocytes % (A) 30 %; MCH 28.5 pg (25.0-35.0); MCHC 32.8 g/dL (31.0-37.0); MCV 86.9 fL (80.0-100.0); Mean Platelet Volume 7.2; Monocytes # (A) 0.3 k/uL (0-1.0); Monocytes % (A) 6 %; Neutrophils # (A) 2.4 k/uL (1.3-7.7); Neutrophils % (A) 54 %; Platelet Count 228 k/uL (150-450); RBC 4.59 m/uL (3.80-5.40); RDW 13.2 % (11.5-15.5); WBC 4.4 k/uL (3.8-10.6)
[2018-09-16 07:00] LABS: ALT 37 U/L (9-52); AST 25 U/L (14-36); Albumin 3.3 g/dL (3.5-5.0); Alkaline Phosphatase 77 U/L (38-126); Anion Gap 5 mmol/L; Blood Urea Nitrogen 16 mg/dL (7-17); Calcium 8.7 mg/dL (8.4-10.2); Carbon Dioxide 28 mmol/L (22-30); Chloride 106 mmol/L (98-107); Cholesterol 166 mg/dL (<200); Glucose 89 mg/dL (74-99); HDL Cholesterol 56 mg/dL (40-60); LDL Cholesterol,Calculated 85 mg/dL (0-99); Potassium 4.3 mmol/L (3.5-5.1); Sodium 139 mmol/L (137-145); Total Bilirubin 0.6 mg/dL (0.2-1.3); Total Protein 5.6 g/dL (6.3-8.2); Triglycerides 125 mg/dL (<150)
[2018-09-16] MEDS ORDERED: PANTOPRAZOLE 40 MG TABLET PO SCH (07:30)
[2018-09-16] MEDS ORDERED: DOBUTamine DRIP for NUC MED 500 MG in DEXTROSE/WATER 1 250ML.BAG IV ONE (08:19)
[2018-09-16] MEDS ORDERED: DOCUSATE 100 MG CAP PO SCH (09:00)
[2018-09-16] MEDS ORDERED: ASPIRIN 81 MG PO SCH (09:00)
[2018-09-16] MEDS ORDERED: DILTIAZEM CD 120 MG CAP.ER.24H PO SCH (09:00)
[2018-09-16] MEDS ORDERED: ASPIRIN 325 MG TAB PO SCH (09:00)
--- NOTE | 2018-09-16 10:03 | P.CRDCN ---
History of Present Illness History of present illness: This is a pleasant 78 showed female past medical history significant for hypertension, mild nonobstructive coronary artery, gastroesophageal reflux disease and significant anxiety. She follows in the office with Dr. Vasquez. She underwent cardiac catheterizations over 2017 which revealed mild 30-40% diffuse disease of the first OM branch with no significant obstructive in any of the other coronary arteries. We have been asked to see her in consultation for symptoms of chest discomfort. She states she woke up yesterday with a dull mild ache in the mid-sternal region with vague discomfort in the base of the neck more so on the right. She states she gets these pains frequently and typically takes 4 baby aspirin and symptoms resolve. This particular time the discomfort persisted. She checked her bp at home and it was elevated 160 systolic then almost 200 systolic with a different machine per the patient. She decided to come to ED for evaluation. She took a xanax prior to coming in. On arrival bp was 133/62. She is prescribed cardizem daily however she states she checks her bp at home daily and if its low she doesn't take it. She also doesn't take aspirin regularly due to frequent gastritis. She has been prescribed statins in the past but states she is intolerant and has been told not to take them by her GI dr. chest pain has resolved with no recurrence since admission. EKG reveals sinus mechanism with no acute ST or T-wave abnormalities noted. Chest x-ray is negative for an acute cardiopulmonary process. Laboratory data reviewed, WBC 4.4, hemoglobin 13.1, platelets 228, d-dimer 0.47 , sodium 139, potassium 4.3, creatinine 0.62, magnesium 2.2, cardiac enzymes negative 3, LDL 85 and HDL 56. Current cardiac medications include Cardizem 120 mg daily and aspirin 81 mg daily. At the time of my exam: CONSTITUTIONAL: Denies fever. Denies chills. EYES: Denies blurred vision. Denies vision changes. Denies eye pain. EARS, NOSE, MOUTH & THROAT: Denies headache. Denies sore throat. Denies ear pain. CARDIOVASCULAR: Denies chest pain. Denies shortness of breath. Denies orthopnea. Denies PND. Denies palpitations. RESPIRATORY: Denies cough. GASTROINTESTINAL: Denies abdominal pain. Denies diarrhea. Denies constipation. Denies nausea. Denies vomiting. MUSCULOSKELETAL: Denies myalgias. INTEGUMENTARY: Denies pruitis. Denies rash. NEUROLOGIC: Denies numbness. Denies tingling. Denies weakness. PSYCHIATRIC: Denies anxiety. Denies depression. ENDOCRINE: Denies fatigue. Denies weight change. Denies polydipsia. Denies polyurina. GENITOURINARY: Denies burning, hematuria or urgency with micturation. HEMATOLOGIC: Denies history of anemia. Denies bleeding. Blood pressure 105/65 heart rate 68 afebrile maintaining oxygen saturation on room air GENERAL: This is a 78-year-old female in no apparent distress at the time of my examination. HEENT: Head is atraumatic, normocephalic. Pupils are equal, round. Sclerae anicteric. Conjunctivae are clear. Mucous membranes of the mouth are moist. Neck is supple. There is no jugular venous distention. No carotid bruit is heard. LUNGS: Clear to auscultation no wheezes, rales or rhonchi. No chest wall tenderness is noted on palpation or with deep breathing. HEART: Regular rate and rhythm without murmurs, rubs or gallops. S1 and S2 heard. ABDOMEN: Soft, nontender. Bowel sounds are heard. No organomegaly noted. EXTREMITIES: No evidence of peripheral edema and no calf tenderness noted. VASCULAR: Radial and dorsalis pedis pulses palpated, no evidence of clubbing. NEUROLOGIC: Patient is awake, alert and oriented x3. ASSESSMENT Chest pain, atypical. An acute coronary event has been ruled out. History of mild nonobstructive coronary artery disease per cath April 2017 Hypertension, non-compliant with anti-hypertensive medication Significant anxiety Gastroesophageal reflux disease PLAN An acute coronary event has been ruled out with no EKG evidence of ischemia and negative cardiac enzymes. Perform dobutamine stress echocardiogram to assess for stress induced ischemia. Obtain 2D echocardiogram and doppler study to assess cardiac structure and function. Check for orthostatic changes. She is unable to tolerate statins due to chronic liver disease, per the patient. If stress test is normal she is stable from a cardiac perspective. She already has an appointment scheduled with Dr. Vasquez in the office in October. Advised her to keep that appointment. Thank you kindly for this consultation. Nurse Practitioner note has been reviewed, I agree with a documented findings and plan of care. Patient was seen and examined. Past Medical History Past Medical History: Chest Pain / Angina, GERD/Reflux, Hypertension, Osteoarthritis (OA) Additional Past Medical History / Comment(s): irreg heart beat. uti ecoli 2013, pancreatitis, 2 weeks ago fell fx 5th metatarsal, occ stress incont of urine. History of Any Multi-Drug Resistant Organisms: None Reported Past Surgical History: Adenoidectomy, Cholecystectomy, Heart Catheterization, Hysterectomy, Tonsillectomy Additional Past Surgical History / Comment(s): Cataracts, ORIF RT ANKLE. HEART CATH 04/29/17., VAG HYST & A & P REPAIR(MAY 2017), egd Past Anesthesia/Blood Transfusion Reactions: No Reported Reaction Additional Past Anesthesia/Blood Transfusion Reaction / Comment(s): has never received any blood transfusions Smoking Status: Never smoker - Past Family History Father Family Medical History: Myocardial Infarction ([place]) Additional Family Medical History / Comment(s): Bad hip, enlarged heart Mother Family Medical History: COPD Additional Family Medical History / Comment(s): PNA Medications and Allergies Home Medications Medication Instructions Recorded Confirmed Type ALPRAZolam [Xanax] 1.5 mg PO HS 09/06/14 09/15/18 History Aspirin 81 mg PO DAILY 09/06/14 09/15/18 History Diltiazem HCl [Diltiazem 24Hr ER] 120 mg PO DAILY 09/06/14 09/15/18 History Propylene Glycol/Peg 400/Pf 1 dropper BOTH EYES BID 06/01/17 09/15/18 History [Systane 0.3-0.4% Eye Drop] Ranitidine HCl [Zantac] 150 mg PO BID 12/21/17 09/15/18 History Docusate [Colace] 100 mg PO DAILY 09/15/18 09/15/18 History Allergies Allergy/AdvReac Type Severity Reaction Status Date / Time clindamycin HCl Allergy Intermediate Rash/Hives Verified 09/15/18 12:48 [From Cleocin] clindamycin palmitate HCl Allergy Intermediate Rash/Hives Verified 09/15/18 12: 48 [From Cleocin] clindamycin phosphate Allergy Intermediate Rash/Hives Verified 09/15/18 12:48 [From Cleocin] Sulfa (Sulfonamide Allergy Intermediate Rash/Hives Verified 09/15/18 12:48 Antibiotics) cefuroxime [From Ceftin] Allergy Unknown Unknown-OBTAINED Verified 09/15/18 12: [address] [facility]. clarithromycin [From Biaxin] Allergy Unknown Unknown-OBTAINED Verified 09/15/18 12:[address] [facility] OFF[facility] ezetimibe [From Zetia] Allergy Unknown Unknown-OBTAINED Verified 09/15/18 12:[address] [facility] OFF[facility] ofloxacin [From Floxin] Allergy Unknown Unknown-OBTAINED Verified 09/15/18 12:[address] [facility] OFF[facility] Bjtzmul-Fhs-Bmx Reductase Allergy Unknown Unknown-OBTAINED Verified 09/15/18 12: [address] [facility] OFFICE sulfamethoxazole Allergy Unknown Unknown Verified 09/15/18 12:48 [From Bactrim] trimethoprim [From Bactrim] Allergy Unknown Unknown Verified 09/15/18 12:48 Physical Exam Vitals: Vital Signs Temp Pulse Pulse Resp BP BP Pulse Ox 09/16/18 03:43 16 09/16/18 03:42 97.7 F 66 16 98/59 96 09/15/18 23:52 18 09/15/18 23:42 97.7 F 68 18 118/66 96 09/15/18 20:00 97.7 F 83 16 139/75 96 09/15/18 15:30 98.2 F 69 18 150/67 99 09/15/18 15:00 106/78 96 09/15/18 14:30 108/64 96 09/15/18 14:00 119/66 97 09/15/18 13:30 135/56 94 L 09/15/18 13:00 135/64 99 09/15/18 12:36 98.2 F 75 18 133/62 98 09/15/18 12:30 133/62 99 09/15/18 12:24 99 Intake and Output 09/15/18 09/16/18 09/16/18 22:59 06:59 14:59 Intake Total 200 Balance 200 Intake: Oral 200 Other: Voiding Method Toilet Toilet # Voids 1 Results 09/16/18 06:21 09/16/18 06:21 Cardiac Enzymes 09/15/18 09/15/18 09/15/18 Range/Units 12:25 12:25 18:08 AST 27 (14-36) U/L CK-MB (CK-2) 0.3 0.2 (0.0-2.4) ng/mL Troponin I <0.012 <0.012 (0.000-0.034) ng/mL 09/16/18 09/16/18 Range/Units 00:44 06:21 AST 25 (14-36) U/L CK-MB (CK-2) 0.2 (0.0-2.4) ng/mL Troponin I <0.012 (0.000-0.034) ng/mL Coagulation 09/15/18 Range/Units 12:25 PT 10.2 (9.0-12.0) sec APTT 26.1 (22.0-30.0) sec Lipids 09/16/18 Range/Units 06:21 Triglycerides 125 (<150) mg/dL Cholesterol 166 (<200) mg/dL HDL Cholesterol 56 (40-60) mg/dL CBC 09/15/18 09/16/18 Range/Units 12:25 06:21 WBC 4.8 4.4 (3.8-10.6) k/uL RBC 4.83 4.59 (3.80-5.40) m/uL Hgb 13.5 13.1 (11.4-16.0) gm/dL Hct 42.5 39.9 (34.0-46.0) % Plt Count 228 228 (150-450) k/uL Comprehensive Metabolic Panel 09/15/18 09/16/18 Range/Units 12:25 06:21 Sodium 141 139 (137-145) mmol/L Potassium 4.3 4.3 (3.5-5.1) mmol/L Chloride 106 106 (98-107) mmol/L Carbon Dioxide 29 28 (22-30) mmol/L BUN 14 16 (7-17) mg/dL Creatinine 0.59 0.62 (0.52-1.04) mg/dL Glucose 93 89 (74-99) mg/dL Calcium 9.2 8.7 (8.4-10.2) mg/dL AST 27 25 (14-36) U/L ALT 31 37 (9-52) U/L Alkaline Phosphatase 92 77 (38-126) U/L Total Protein 6.2 L 5.6 L (6.3-8.2) g/dL Albumin 3.9 3.3 L (3.5-5.0) g/dL Current Medications Generic Name Dose Route Start Last Admin Trade Name Freq PRN Reason Stop Dose Admin Alprazolam 1.5 mg 09/15/18 21:00 09/15/18 20:58 Xanax PO 1.5 mg HS YAMILET Administration Artificial Tears 1 drops 09/15/18 21:00 09/15/18 20:57 Artificial Tear Drops BOTH EYES Not Given BID [facility] Aspirin 81 mg 09/16/18 09:00 Aspirin PO DAILY [facility] Diltiazem HCl 120 mg 09/16/18 09:00 Cardizem Cd PO DAILY [facility] Docusate Sodium 100 mg 09/16/18 09:00 Colace PO DAILY [facility] Famotidine 20 mg 09/15/18 21:00 09/15/18 21:03 Pepcid PO Not Given BID [facility] Heparin Sodium (Porcine) 5,000 unit 09/15/18 21:00 09/15/18 21:00 Heparin SQ 5,000 unit Q12HR YAMILET Administration Nitroglycerin 0.4 mg 09/15/18 14:34 Nitrostat SUBLINGUAL Q5M PRN Chest Pain Pantoprazole Sodium 40 mg 09/16/18 07:30 Protonix PO AC-BRKFST YAMILET Intake and Output 09/15/18 09/16/18 09/16/18 22:59 06:59 14:59 Intake Total 200 Balance 200 Intake: Oral 200 Other: Voiding Method Toilet Toilet # Voids 1 09/16/18 06:21 09/16/18 06:21
[2018-09-16] MEDS: ARTIFICIAL TEARS-HYPROMELLOSE DROPS 15 ML BTL BOTH EYES SCH (10:12)
[2018-09-16] MEDS: HEPARIN SODIUM,PORCINE 5,000 UNIT/ML 1 ML VIAL SQ SCH (10:13)
[2018-09-16] MEDS: FAMOTIDINE 20 MG TAB PO SCH (10:13)
[2018-09-16 12:08] VITALS: TEMP 98.3
[2018-09-16 15:39] VITALS: BP 110/64; PULSE 83; RESP 18
--- NOTE | 2018-09-16 15:39 | P.DS ---
Providers Date of admission: 09/15/18 14:34 Expected date of discharge: 09/16/18 Attending physician: Stalin Duong Consults: 09/15/18 14:34 Consult Physician Urgent Consulting Provider: Mono Suarez Consult Reason/Comments: cp Do you want consulting provider notified?: Yes Primary care physician: Stalin Duong [facility] Course: Discharge diagnoses 1. Chest pain: SD ruled out. Troponins negative 3, d-dimer negative, chest x- ray negative EKG normal sinus rhythm. Patient underwent dobutamine stress test. Results are pending 2. Essential hypertension: Patient reports elevated blood pressures at home. Apparently she does not take the Cardizem every day. She reports that sometimes it makes her blood pressure too low. Patient will be seen by cardiology. Continue to monitor blood pressure. Blood pressures are stable. Tolerating Cardizem. Orthostatics were negative 3. History of GERD and gastritis continue the Zantac 4. Generalized anxiety disorder resume patient's Xanax 5. History of possible gallstone pancreatitis. Lipase is normal. Hospital course This is a 78-year-old female with a known past medical history of hypertension, anxiety, GERD, gastritis and possible gallstone pancreatitis. Patient reports she started having chest pain earlier this morning. It was located on the left side of her chest lasting for about half hour. She reports that the pain did radiate into the right side of her neck. She had been checking her blood pressures at home. And they continued to increase. Her last blood pressure at home was 185/89 she was concerned and came into the ER for further evaluation and treatment. On admission blood pressure was 133/62. Chest pain has resolved. She did take 4 aspirins at home which helped relieve the symptoms. EKG showing normal sinus rhythm first troponin was negative chest x-rays negative lipase was normal d-dimer negative. She reports her last heart catheterization was 1-2 years ago and returned was told that it was normal. She also admits to having a headache. She denies any vision changes, fever or chills or sweats, shortness of breath, nausea or vomiting, bowel movement changes or urinary symptoms. She denies any numbness or tingling laterally on the extremities or any slurred speech. Cardiology is consulted. Continue follow up on cardiac enzymes. Patient does admit to her father passing away of a heart attack around age 56. She denies any hyperlipidemia, diabetes or smoking history. 09/16/2018 patient underwent dobutamine stress test. Results are pending. Patient is chest pain-free. Blood pressures have shown improvement. Cardiology is recommending that patient does take her Cardizem every day. There 's been no significant hypotension. Orthostatic blood pressures were negative. We are currently awaiting the dobutamine stress test to be read. Discussed with cardiology services. Cardiology will be reviewing the stress test and then will notify nursing staff of stress test results and if patient is clear for discharge. Discussed with patient's nurse, Jackie. She is aware that she needs to await Dr. Melo's orders regarding discharge before sending patient home. I performed an examination of the patient and discussed their management with the physician Funeral Driver. I have reviewed the Physician Funeral Driver's notes and agree with the documented findings and plan of care Patient Condition at Discharge: Stable Plan - Discharge Summary Discharge Rx Participant: No New Discharge Prescriptions: Continue Diltiazem HCl [Diltiazem 24Hr ER] 120 mg PO DAILY Aspirin 81 mg PO DAILY ALPRAZolam [Xanax] 1.5 mg PO HS Propylene Glycol/Peg 400/Pf [Systane 0.3-0.4% Eye Drop] 1 dropper BOTH EYES BID Ranitidine HCl [Zantac] 150 mg PO BID Docusate [Colace] 100 mg PO DAILY Discharge Medication List ALPRAZolam [Xanax] 1.5 mg PO HS 09/06/14 [History] Aspirin 81 mg PO DAILY 09/06/14 [History] Diltiazem HCl [Diltiazem 24Hr ER] 120 mg PO DAILY 09/06/14 [History] Propylene Glycol/Peg 400/Pf [Systane 0.3-0.4% Eye Drop] 1 dropper BOTH EYES BID 06/01/17 [History] Ranitidine HCl [Zantac] 150 mg PO BID 12/21/17 [History] Docusate [Colace] 100 mg PO DAILY 09/15/18 [History] Follow up Appointment(s)/Referral(s): Stalin Duong MD [Primary Care Provider] - 1 Week Activity/Diet/Wound Care/Special Instructions: Diet: cardiac Activity: as tolerated ok to discharge if cleared by cardiology. Follow up with cardiology in October as scheduled Discharge Disposition: HOME SELF-CARE
--- NOTE | 2018-09-16 19:02 | ECHOS ---
STRESS ECHOCARDIOGRAM INDICATIONS: Chest pain. MEDICATIONS: Diltiazem, aspirin 81 mg, alprazolam, glycol, ranitidine hydrochlorothiazide, docusate. BASELINE HEART RATE: 69 BASELINE BLOOD PRESSURE: 108/53 MAXIMUM HEART RATE: 129 MAXIMUM BLOOD PRESSURE: 160/49 85% MPHR: 122 100% MPHR: 144 METS: MAXIMUM STAGE REACHED: 2 mcg/kg/minute TOTAL EXERCISE TIME: 6:00 CLINICAL INFORMATION: Velvet Dimas is a lady with history of hypertension complaining of chest discomfort. This is a dobutamine stress echo. Baseline heart rate 69 beats per minute. Baseline blood pressure 108/53 mmHg. Baseline 12-lead ECG shows normal sinus rhythm with normal cardiac intervals. Patient received dobutamine infusion per protocol up to 20 mcg. She achieved a peak heart rate of 129 beats per minute. During dobutamine infusion occasional PVCs were noted. There was a 1 mm up-sloping ST depression noted inferiorly. Baseline echo images showed normal LV size and systolic function without segmental wall motion abnormalities. With dobutamine at 10 mcg and 20 mcg there was stepwise improvement in overall LV contractility without development of any wall motion abnormalities. At recovery, regional global LV systolic function remained normal. IMPRESSION: 1. Borderline ECG with up-sloping [address] depression. 2. Excellent augmentation of overall LV contractility in a stepwise manner without development of any wall motion abnormalities, but the peak dose of dobutamine use was only 20 mcg, and she achieved 89% of her predicted maximum heart rate for age. PLAN: Follow up with Dr. Vasquez for further management. MMMARIANNEL / MANUELN: [id number] /
== END 2018-09-16 19:15 | disposition home or self-care (01) ==
LOC: EC 12:20 → 1SOBS 14:34
PROVIDERS: ADMIT Internal Medicine; ATTEND Internal Medicine
DX: R07.89 Other chest pain (principal); R51 Headache; I10 Essential (primary) hypertension; I25.10 Atherosclerotic heart disease of native coronary artery without angina pectoris; Z82.49 Family history of ischemic heart disease and other diseases of the circulatory system; K21.9 Gastro-esophageal reflux disease without esophagitis; K29.70 Gastritis, unspecified, without bleeding; T46.1X6A Underdosing of calcium-channel blockers, initial encounter; Z91.128 Patient's intentional underdosing of medication regimen for other reason; M19.90 Unspecified osteoarthritis, unspecified site; Z91.14 Patient's other noncompliance with medication regimen; Z82.5 Family history of asthma and other chronic lower respiratory diseases; F41.1 Generalized anxiety disorder; K76.9 Liver disease, unspecified; N39.3 Stress incontinence (female) (male); Z90.710 Acquired absence of both cervix and uterus; Z79.82 Long term (current) use of aspirin; Z79.899 Other long term (current) drug therapy; Z88.1 Allergy status to other antibiotic agents; Z88.2 Allergy status to sulfonamides; Z88.8 Allergy status to other drugs, medicaments and biological substances
CPT/HCPCS: 93005 ×2; 96372 ×2; 99285; 36415; 93306; 93351; 85379; 80061; 80053 ×2; 82150; 82550 ×2; 82553 ×2; 83690; 83735; 84484 ×2; 85025 ×2; 85610; 85730; 71046; G0378 ×2; J1250; J1644 ×2

== ENCOUNTER → 2018-12-05 | Outpatient (CLI) | payer MEDICARE, BC ==
[2018-12-06 01:45] LABS: Albumin 4.7 g/dL (3.80-4.90); Albumin/Globulin Ratio 2.47 (1.60-3.17); Anion Gap 11.6 mmol/L (4.00-12.00); Calcium 9.4 mg/dL (8.7-10.3); Carbon Dioxide 25.4 mmol/L (21.6-31.8); Globulin 1.9 g/dL (1.6-3.3); Potassium 4.4 mmol/L (3.5-5.5); Total Bilirubin 0.4 mg/dL (0.3-1.2); Total Protein 6.6 g/dL (6.2-8.2)
== END ==
LOC: LABWHC1 15:55
PROVIDERS: ATTEND Internal Medicine Gastroenterology
DX: R74.8 Abnormal levels of other serum enzymes (principal)
CPT/HCPCS: 36415; 80053

== ENCOUNTER 2019-04-13 07:48 | Observation (INO) | payer MEDICARE, BC ==
[2019-04-13] MEDS ORDERED: ASPIRIN 81 MG PO STA (08:11)
[2019-04-13 08:28] LABS: Basophils % (A) 1 %; Eosinophils # (A) 0.3 k/uL (0-0.7); Eosinophils % (A) 6 %; HCT 43.5 % (34.0-46.0); HGB 14.4 gm/dL (11.4-16.0); Lymphocytes # (A) 1.4 k/uL (1.0-4.8); Lymphocytes % (A) 28 %; MCHC 33.2 g/dL (31.0-37.0); MCV 87.4 fL (80.0-100.0); Mean Platelet Volume 7.3; Monocytes # (A) 0.3 k/uL (0-1.0); Monocytes % (A) 7 %; Neutrophils # (A) 2.7 k/uL (1.3-7.7); Neutrophils % (A) 56 %; Platelet Count 224 k/uL (150-450); RBC 4.98 m/uL (3.80-5.40); RDW 13.5 % (11.5-15.5); WBC 4.9 k/uL (3.8-10.6)
--- NOTE | 2019-04-13 08:30 | XR ---
EXAMINATION TYPE: XR chest 2V DATE OF EXAM: 04/13/2019 COMPARISON: 09/15/2018 HISTORY: Left-sided chest pain TECHNIQUE: Frontal and lateral views of the chest are obtained. FINDINGS: There is no focal air space opacity, pleural effusion, or pneumothorax seen. Very minimal platelike subsegmental atelectasis near the costophrenic angle. The cardiac silhouette size is withi n normal limits. Mild generalized osseous demineralization and minimal degenerative changes of the thoracic spine. The osseous structures are intact. Cholecystectomy clips are seen. IMPRESSION: Very minimal left basilar subsegmental atelectasis. Otherwise no acute cardiopulmonary p rocess.
[2019-04-13 08:41] LABS: INR 0.9 (<1.2); Partial Thromboplastin Time 26.7 sec (22.0-30.0); Prothrombin Time 10.2 sec (9.0-12.0)
[2019-04-13 08:42] LABS: ALT 24 U/L (9-52); AST 36 U/L (14-36); African American GFR (CKD) >90 (>60 ml/min/1.73 sqM); Albumin 3.9 g/dL (3.5-5.0); Alkaline Phosphatase 89 U/L (38-126); Anion Gap 7 mmol/L; Blood Urea Nitrogen 16 mg/dL (7-17); Carbon Dioxide 26 mmol/L (22-30); Chloride 106 mmol/L (98-107); Glucose 96 mg/dL (74-99); Magnesium 2.2 mg/dL (1.6-2.3); Potassium 3.9 mmol/L (3.5-5.1); Sodium 139 mmol/L (137-145); Total Bilirubin 0.9 mg/dL (0.2-1.3); Total Protein 6.5 g/dL (6.3-8.2)
--- NOTE | 2019-04-13 09:22 | ED ---
Chest Pain HPI - General Chief Complaint: Chest Pain Stated Complaint: Chest pain Time Seen by Provider: 04/13/19 07:55 Source: patient, RN notes reviewed Mode of arrival: wheelchair Limitations: no limitations - History of Present Illness Initial Comments: 78 year old female presents emergency Department with chief complaint of chest discomfort. He states that she's had some intermittent symptoms last couple days but states his morning was much worse than she's had in the past. Patient states she does take medication for hypertension but no history of hyperlipidemia diabetes her former smoker. She does state that she saw her immigration associate in which she told him that she intermittently takes her blood pressure medication. Patient denies any cough or cold like symptoms no fevers or chills denies any current nausea vomiting no pleuritic chest pain. Patient states pain is centralized radiates up into her shoulder region. - Related Data Home Medications Medication Instructions Recorded Confirmed ALPRAZolam [Xanax] 1 mg PO BID PRN 09/06/14 04/13/19 Aspirin 81 mg PO DAILY 09/06/14 04/13/19 Diltiazem HCl [Diltiazem 24Hr ER] 120 mg PO DAILY 09/06/14 04/13/19 Ergocalciferol [Vitamin D2] 50,000 unit PO MO 04/13/19 04/13/19 Vit C/Ascorb Sod/Multivit-Min 500 mg PO DAILY 04/13/19 04/13/19 [Emergen-C 500 mg Chewable Tab] Allergies Allergy/AdvReac Type Severity Reaction Status Date / Time clindamycin HCl Allergy Intermediate Rash/Hives Verified 04/13/19 09:18 [From Cleocin] clindamycin palmitate HCl Allergy Intermediate Rash/Hives Verified 04/13/19 09:18 [From Cleocin] clindamycin phosphate Allergy Intermediate Rash/Hives Verified 04/13/19 09:18 [From Cleocin] Sulfa (Sulfonamide Allergy Intermediate Rash/Hives Verified 04/13/19 09:18 Antibiotics) cefuroxime [From Ceftin] Allergy Unknown Unknown-OBTAINED Verified 04/13/19 09:[address] [facility] OFF[facility]. clarithromycin [From Biaxin] Allergy Unknown Unknown-OBTAINED Verified 04/13/19 09:[address] [facility] OFF[facility] ezetimibe [From Zetia] Allergy Unknown Unknown-OBTAINED Verified 04/13/19 09:[address] [facility] OFF[facility] ofloxacin [From Floxin] Allergy Unknown Unknown-OBTAINED Verified 04/13/19 09:[address] [facility] OFF[facility] Yxvmsux-Poo-Oba Reductase Allergy Unknown Unknown-OBTAINED Verified 04/13/19 09:[address] [facility] OFFICE sulfamethoxazole Allergy Unknown Unknown Verified 04/13/19 09:18 [From Bactrim] trimethoprim [From Bactrim] Allergy Unknown Unknown Verified 04/13/19 09:18 Review of Systems ROS Statement: Those systems with pertinent positive or pertinent negative responses have been documented in the HPI. ROS Other: All systems not noted in ROS Statement are negative. EKG Findings - EKG Comments: EKG Findings:: EKG performed at 8:02 normal sinus rhythm rate of 73 [place] 124 QRS 84 QT/QTC 382/420 Past Medical History Past Medical History: Chest Pain / Angina, GERD/Reflux, Hypertension, Osteoarthritis (OA) Additional Past Medical History / Comment(s): irreg heart beat. uti ecoli 2013, pancreatitis, 2 weeks ago fell fx 5th metatarsal, occ stress incont of urine. History of Any Multi-Drug Resistant Organisms: None Reported Past Surgical History: Adenoidectomy, Cholecystectomy, Heart Catheterization, Hysterectomy, Tonsillectomy Additional Past Surgical History / Comment(s): Cataracts, ORIF RT ANKLE. HEART CATH 04/29/17., VAG HYST & A & P REPAIR(MAY 2017), egd Past Anesthesia/Blood Transfusion Reactions: No Reported Reaction Additional Past Anesthesia/Blood Transfusion Reaction / Comment(s): has never received any blood transfusions Past Psychological History: Anxiety Smoking Status: Never smoker - Past Family History Father Family Medical History: Myocardial Infarction ([place]) Additional Family Medical History / Comment(s): Bad hip, enlarged heart Mother Family Medical History: COPD Additional Family Medical History / Comment(s): PNA General Exam Limitations: no limitations General appearance: alert, in no apparent distress Head exam: Present: atraumatic, normocephalic, normal inspection ENT exam: Present: normal exam, normal oropharynx, mucous membranes moist, TM's normal bilaterally, normal external ear exam Neck exam: Present: normal inspection, full ROM. Absent: tenderness, meningismus, lymphadenopathy Respiratory exam: Present: normal lung sounds bilaterally. Absent: respiratory distress, wheezes, rales, rhonchi, stridor, chest wall tenderness Cardiovascular Exam: Present: regular rate, normal rhythm, normal heart sounds. Absent: systolic murmur, diastolic murmur, rubs, gallop, clicks Neurological exam: Present: alert, oriented X3, CN II-XII intact Skin exam: Present: warm, dry, intact, normal color. Absent: rash Course Vital Signs 04/13/19 04/13/19 07:52 08:11 Temperature 98 F Pulse Rate 74 69 Respiratory 18 16 Rate Blood Pressure 159/80 138/71 O2 Sat by Pulse 97 96 Oximetry Chest [facility] 78-year-old female presented for chest discomfort. Patient lives EKG unremarkable at this time though patient has typical symptoms and will be admitted for cardiology evaluation. Disposition Clinical Impression: Chest pain Disposition: ADMITTED IP TO THIS HOSP Condition: Stable Referrals: Stalin Duong MD [Primary Care Provider] - 1-2 days
[2019-04-13 09:39] LABS: Appearance,Urine Clear (Clear); Bilirubin,Urine Negative (Negative); Blood,Urine Negative (Negative); Color,Urine Light Yellow; Glucose,Urine (UA) Negative (Negative); Ketones,Urine Negative (Negative); Leukocyte Esterase,Urine Moderate (Negative); Nitrite,Urine Negative (Negative); Protein,Urine Negative (Negative); RBC,Urine <1 /hpf (0-5); Specific Gravity,Urine 1.004 (1.001-1.035); Squamous Epithelial Cell,Urine <1 /hpf (0-4); Urobilinogen,Urine <2.0 mg/dL (<2.0)
[2019-04-13] MEDS ORDERED: NITROGLYCERIN SL TABS 0.4 MG TAB SUBLINGUAL PRN (10:09)
[2019-04-13] MEDS ORDERED: HEPARIN SODIUM,PORCINE 5,000 UNIT/ML 1 ML VIAL IV ONE (10:09)
[2019-04-13] MEDS: HEPARIN SOD,PORK IN 0.45% NACL 25,000 UNIT in 0.45% NACL 1 250ML.BAG IV SCH (11:18)
[2019-04-13] MEDS ORDERED: ALPRAZolam 1 MG TAB PO PRN (11:26)
[2019-04-13] MEDS ORDERED: ONDANSETRON 4 MG/2 ML VIAL IVP PRN (14:06)
[2019-04-13] MEDS ORDERED: ACETAMINOPHEN TAB 325 MG TAB PO PRN (14:06)
--- NOTE | 2019-04-13 14:06 | P.HPIM ---
History of Present Illness H&P Date: 04/13/19 This is a 78-year-old female patient who presented to the ER with complaints of chest pain. Patient reports that symptoms have been intermittently occurring over the last couple days but this morning she woke up with much worse pain that radiated to neck and shoulder. Denies any association shortness breath or nausea. Patient has has medical history of asthma, chest pain, GERD, hypertension, osteoarthritis and gastritis, UTIs and anxiety. Chest x-ray completed showing very minimal left basilar subsegmental atelectasis otherwise no acute pulmonary process. EKG completed showing sinus rhythm, EKG. troponin negative. Patient started on heparin drip. Cardiology services consulted. At this time patient denies any chest pain or shortness breath. Patient denies nausea vomiting or diarrhea. Patient denies any urinary burning or frequency Review of Systems Please refer to HPI otherwise unremarkable Past Medical History Past Medical History: Asthma, Chest Pain / Angina, GERD/Reflux, Hypertension, Osteoarthritis (OA) Additional Past Medical History / Comment(s): Gastritis, irregular heart beat at times, UTIs, occasional stress incontinence, pancereatitis after ERCP History of Any Multi-Drug Resistant Organisms: None Reported Past Surgical History: Adenoidectomy, Cholecystectomy, Heart Catheterization, Hysterectomy, Orthopedic Surgery, Tonsillectomy Additional Past Surgical History / Comment(s): Mini lap with L salpingo- oophorectomy, bilateral cataract removals/lens implants, A&P repair, R ankle ORIF Past Anesthesia/Blood Transfusion Reactions: No Reported Reaction Additional Past Anesthesia/Blood Transfusion Reaction / Comment(s): has never received any blood transfusions Smoking Status: Never smoker - Past Family History Father Family Medical History: Myocardial Infarction ([place]) Additional Family Medical History / Comment(s): Bad hip, enlarged heart Mother Family Medical History: COPD, Pneumonia Additional Family Medical History / Comment(s): PNA Medications and Allergies Home Medications Medication Instructions Recorded Confirmed Type ALPRAZolam [Xanax] 1 mg PO BID PRN 09/06/14 04/13/19 History Aspirin 81 mg PO DAILY 09/06/14 04/13/19 History Diltiazem HCl [Diltiazem 24Hr ER] 120 mg PO DAILY 09/06/14 04/13/19 History Ergocalciferol [Vitamin D2] 50,000 unit PO MO 04/13/19 04/13/19 History Vit C/Ascorb Sod/Multivit-Min 500 mg PO DAILY 04/13/19 04/13/19 History [Emergen-C 500 mg Chewable Tab] Allergies Allergy/AdvReac Type Severity Reaction Status Date / Time clindamycin HCl Allergy Intermediate Rash/Hives Verified 04/13/19 09:18 [From Cleocin] clindamycin palmitate HCl Allergy Intermediate Rash/Hives Verified 04/13/19 09:18 [From Cleocin] clindamycin phosphate Allergy Intermediate Rash/Hives Verified 04/13/19 09:18 [From Cleocin] Sulfa (Sulfonamide Allergy Intermediate Rash/Hives Verified 04/13/19 09:18 Antibiotics) cefuroxime [From Ceftin] Allergy Unknown Unknown-OBTAINED Verified 04/13/19 09:[address] [facility]. clarithromycin [From Biaxin] Allergy Unknown Unknown-OBTAINED Verified 04/13/19 09:[address] [facility] ezetimibe [From Zetia] Allergy Unknown Unknown-OBTAINED Verified 04/13/19 09:[address] [facility] ofloxacin [From Floxin] Allergy Unknown Unknown-OBTAINED Verified 04/13/19 09:[address] [facility] Risjvpn-Ruf-Azc Reductase Allergy Unknown Unknown-OBTAINED Verified 04/13/19 09:[address] [facility] OFFICE sulfamethoxazole Allergy Unknown Unknown Verified 04/13/19 09:18 [From Bactrim] trimethoprim [From Bactrim] Allergy Unknown Unknown Verified 04/13/19 09:18 Physical Exam Vitals: Vital Signs Temp Pulse Pulse Resp BP BP Pulse Ox 04/13/19 12:55 98 04/13/19 12:00 97.3 F L 66 17 125/77 96 04/13/19 11:43 98 F 65 18 126/64 98 04/13/19 11:27 65 18 126/64 98 04/13/19 10:27 58 L 16 136/60 97 04/13/19 08:11 69 16 138/71 96 04/13/19 07:52 98 F 74 18 159/80 97 Intake and Output 04/12/19 04/13/19 04/13/19 22:59 06:59 14:59 Other: Weight 61.689 kg Head normocephalic Neck supple Lungs clear to auscultation bilaterally no wheezing or crackles Heart regular rate and rhythm S1-S2, no rub or gallop Abdomen is soft nontender nondistended positive bowel sounds no hepatosplenomegaly Extremities no edema Neuro alert and orientated to 3 Results CBC & Chem 7: 04/13/19 08:10 04/13/19 08:10 Labs: Abnormal Lab Results - Last 24 Hours (Table) 04/13/19 Range/Units 09:05 Ur Leukocyte Esterase Moderate H (Negative) Thrombosis Risk Factor Assmnt - Choose All That Apply Any of the Below Risk Factors Present?: Yes Other Risk Factors: Yes Each Risk Factor Represents 3 Points: Age 75 years or older Other congenital or acquired thrombophilia - If yes, enter type in comment: No Thrombosis Risk Factor Assessment Total Risk Factor Score: 3 Thrombosis Risk Factor Assessment Level: Moderate Risk Assessment and Plan Assessment: 1. Chest pain. Troponin negative. Chest x-ray showing no acute pulmonary process. EKG completed showing normal sinus rhythm. Patient started her cardiology service consulted 2. History of asthma 3. History of chest pain/angina 4. History of GERD 5. History of osteoarthritis 6. History of urinary tract infection. UA showing moderate amount of leukocyte Estrace. Urine culture will be ordered. Patient reports she is unable to tolerate most antibiotics Time with Patient: Greater than 30 (Greater than 60% of the total time spent in counseling and coordination of care. I performed an examination of the patient and discussed their management with the Nurse Practitioner. I have reviewed the Nurse Practitioner's notes and agree with the documented findings and plan of care)
--- NOTE | 2019-04-13 16:02 | P.CRDCN ---
History of Present Illness History of present illness: This is a pleasant 78 showed female past medical history significant for hypertension, GERD, mild nonobstructive coronary artery disease and asthma. She follows in the office with Dr. Vasquez. We have been asked to see her in consultation secondary to chest discomfort. She states this all started approximately 2 days ago. She states she is usually fairly active and walks regularly however 2 days ago she went on a walk that was longer and more concerning than typical. Since that time she has noticed intermittent episodes of chest discomfort. The discomfort is in the midsternal region and described as a heavy pressure type sensation. There is no radiation to the arm, back, neck or jaw initially however this morning when she woke up she again developed the same type pain and this time it radiated to both of her shoulders.. This is not associated with shortness of breath, dizziness, nausea, vomiting or diaphoresis. She is seen and examined sitting up in bed in no acute distress. She has no active chest pain at this time. EKG reveals sinus mechanism with no acute ST or T wave abnormalities noted. Chest x-ray is negative for an acute cardiopulmonary process. Laboratory data reviewed, WBC 4.9, hemoglobin 14.4, platelets 224, sodium 139, potassium 3.9, creatinine 0.69, magnesium 2.2, cardiac enzymes negative 1, proBNP 98. Current cardiac medications include diltiazem 120 mg daily and aspirin 81 mg daily. Most recent cardiac catheterization in 2016 revealed a mild 30-40% diffuse disease of the first OM branch with no significant obstructive disease in any of the other coronary arteries. Most recent echocardiogram obtained September 2018 reveals preserved LV systolic function with ejection fraction 55-60%. Most recent stress test performed in September 2018 with a dobutamine stress echocardiogram that was negative for stress-induced ischemia, she only got to 20 mics of dobutamine achieving 89% of target heart rate. At the time of my exam: CONSTITUTIONAL: Denies fever. Denies chills. EYES: Denies blurred vision. Denies vision changes. Denies eye pain. EARS, NOSE, MOUTH & THROAT: Denies headache. Denies sore throat. Denies ear pain. CARDIOVASCULAR: Denies chest pain. Denies shortness of breath. Denies orthopnea. Denies PND. Denies palpitations. RESPIRATORY: Denies cough. GASTROINTESTINAL: Denies abdominal pain. Denies diarrhea. Denies constipation. Denies nausea. Denies vomiting. MUSCULOSKELETAL: Denies myalgias. INTEGUMENTARY: Denies pruitis. Denies rash. NEUROLOGIC: Denies numbness. Denies tingling. Denies weakness. PSYCHIATRIC: Denies anxiety. Denies depression. ENDOCRINE: Denies fatigue. Denies weight change. Denies polydipsia. Denies polyurina. GENITOURINARY: Denies burning, hematuria or urgency with micturation. HEMATOLOGIC: Denies history of anemia. Denies bleeding. Blood pressure 125/77 heart rate 66 afebrile maintaining oxygen saturation on room air GENERAL: This is a 78-year-old female in no apparent distress at the time of my examination. HEENT: Head is atraumatic, normocephalic. Pupils are equal, round. Sclerae anicteric. Conjunctivae are clear. Mucous membranes of the mouth are moist. Neck is supple. There is no jugular venous distention. No carotid bruit is heard. LUNGS: Clear to auscultation no wheezes, rales or rhonchi. No chest wall tenderness is noted on palpation or with deep breathing. HEART: Regular rate and rhythm without murmurs, rubs or gallops. S1 and S2 heard. ABDOMEN: Soft, nontender. Bowel sounds are heard. No organomegaly noted. EXTREMITIES: No evidence of peripheral edema and no calf tenderness noted. VASCULAR: Radial and dorsalis pedis pulses palpated, no evidence of clubbing. NEUROLOGIC: Patient is awake, alert and oriented x3. ASSESSMENT Chest pain, atypical. Mild nonobstructive coronary artery disease Hypertension Asthma PLAN Continue to obtain serial cardiac enzymes to rule out an acute event. Obtain an echocardiogram to assess cardiac structure and function. NPO after midnight tonight for further cardiac testing in the morning depending on enzymes and echo findings. Further recommendations to follows. Thank you kindly for this consultation. Nurse Practitioner note has been reviewed, I agree with a documented findings and plan of care. Patient was seen and examined. Past Medical History Past Medical History: Asthma, Chest Pain / Angina, GERD/Reflux, Hypertension, Osteoarthritis (OA) Additional Past Medical History / Comment(s): Gastritis, irregular heart beat at times, UTIs, occasional stress incontinence, pancereatitis after ERCP History of Any Multi-Drug Resistant Organisms: None Reported Past Surgical History: Adenoidectomy, Cholecystectomy, Heart Catheterization, Hysterectomy, Orthopedic Surgery, Tonsillectomy Additional Past Surgical History / Comment(s): Mini lap with L salpingo-oop horectomy, bilateral cataract removals/lens implants, A&P repair, R ankle ORIF Past Anesthesia/Blood Transfusion Reactions: No Reported Reaction Additional Past Anesthesia/Blood Transfusion Reaction / Comment(s): has never received any blood transfusions Smoking Status: Never smoker - Past Family History Father Family Medical History: Myocardial Infarction ([place]) Additional Family Medical History / Comment(s): Bad hip, enlarged heart Mother Family Medical History: COPD, Pneumonia Additional Family Medical History / Comment(s): PNA Medications and Allergies Home Medications Medication Instructions Recorded Confirmed Type ALPRAZolam [Xanax] 1 mg PO BID PRN 09/06/14 04/13/19 History Aspirin 81 mg PO DAILY 09/06/14 04/13/19 History Diltiazem HCl [Diltiazem 24Hr ER] 120 mg PO DAILY 09/06/14 04/13/19 History Ergocalciferol [Vitamin D2] 50,000 unit PO MO 04/13/19 04/13/19 History Vit C/Ascorb Sod/Multivit-Min 500 mg PO DAILY 04/13/19 04/13/19 History [Emergen-C 500 mg Chewable Tab] Allergies Allergy/AdvReac Type Severity Reaction Status Date / Time clindamycin HCl Allergy Intermediate Rash/Hives Verified 04/13/19 09:18 [From Cleocin] clindamycin palmitate HCl Allergy Intermediate Rash/Hives Verified 04/13/19 09:18 [From Cleocin] clindamycin phosphate Allergy Intermediate Rash/Hives Verified 04/13/19 09:18 [From Cleocin] Sulfa (Sulfonamide Allergy Intermediate Rash/Hives Verified 04/13/19 09:18 Antibiotics) cefuroxime [From Ceftin] Allergy Unknown Unknown-OBTAINED Verified 04/13/19 09:[address] [facility]. clarithromycin [From Biaxin] Allergy Unknown Unknown-OBTAINED Verified 04/13/19 09:[address] [facility] ezetimibe [From Zetia] Allergy Unknown Unknown-OBTAINED Verified 04/13/19 09:[address] [facility] ofloxacin [From Floxin] Allergy Unknown Unknown-OBTAINED Verified 04/13/19 09:[address] [facility] Jhjdwuy-Ady-Ayp Reductase Allergy Unknown Unknown-OBTAINED Verified 04/13/19 09:[address] [facility] OFF[facility] sulfamethoxazole Allergy Unknown Unknown Verified 04/13/19 09:18 [From Bactrim] trimethoprim [From Bactrim] Allergy Unknown Unknown Verified 04/13/19 09:18 Physical Exam Vitals: Vital Signs Temp Pulse Pulse Resp BP BP Pulse Ox 04/13/19 12:55 98 04/13/19 12:00 97.3 F L 66 17 125/77 96 04/13/19 11:43 98 F 65 18 126/64 98 04/13/19 11:27 65 18 126/64 98 04/13/19 10:27 58 L 16 136/60 97 04/13/19 08:11 69 16 138/71 96 04/13/19 07:52 98 F 74 18 159/80 97 Intake and Output 04/12/19 04/13/19 04/13/19 22:59 06:59 14:59 Other: Weight 61.689 kg Results 04/13/19 08:10 04/13/19 08:10 Cardiac Enzymes 04/13/19 04/13/19 Range/Units 08:10 08:10 AST 36 (14-36) U/L Troponin I <0.012 (0.000-0.034) ng/mL Coagulation 04/13/19 Range/Units 08:10 PT 10.2 (9.0-12.0) sec APTT 26.7 (22.0-30.0) sec CBC 04/13/19 Range/Units 08:10 WBC 4.9 (3.8-10.6) k/uL RBC 4.98 (3.80-5.40) m/uL Hgb 14.4 (11.4-16.0) gm/dL Hct 43.5 (34.0-46.0) % Plt Count 224 (150-450) k/uL Comprehensive Metabolic Panel 04/13/19 Range/Units 08:10 Sodium 139 (137-145) mmol/L Potassium 3.9 (3.5-5.1) mmol/L Chloride 106 (98-107) mmol/L Carbon Dioxide 26 (22-30) mmol/L BUN 16 (7-17) mg/dL Creatinine 0.69 (0.52-1.04) mg/dL Glucose 96 (74-99) mg/dL Calcium 9.0 (8.4-10.2) mg/dL AST 36 (14-36) U/L ALT 24 (9-52) U/L Alkaline Phosphatase 89 (38-126) U/L Total Protein 6.5 (6.3-8.2) g/dL Albumin 3.9 (3.5-5.0) g/dL Current Medications Generic Name Dose Route Start Last Admin Trade Name Freq PRN Reason Stop Dose Admin Acetaminophen 650 mg 04/13/19 14:06 Tylenol Tab PO Q6HR PRN Fever and/ or Pain Alprazolam 1 mg 04/13/19 11:26 Xanax PO BID PRN Anxiety Ascorbic Acid 500 mg 04/14/19 09:00 Vitamin C PO DAILY [facility] Aspirin 325 mg 04/14/19 09:00 Aspirin PO DAILY [facility] Diltiazem HCl 120 mg 04/14/19 09:00 Cardizem Cd PO DAILY [facility] Ergocalciferol 50,000 unit 04/17/19 09:00 Vitamin D2 PO MO [facility] Famotidine 20 mg 04/14/19 09:00 Pepcid PO DAILY [facility] Heparin Sodium/Sodium Chloride 250 mls @ 7.403 mls/hr 04/13/19 10:15 04/13/19 11:18 25,000 unit/ Sodium Chloride IV 12 units/kg/hr .Q24H [facility] 7.403 mls/hr Administration Protocol 12 UNITS/KG/HR Nitroglycerin 0.4 mg 04/13/19 10:09 Nitrostat SUBLINGUAL Q5M PRN Chest Pain Ondansetron HCl 4 mg 04/13/19 14:06 Zofran IVP Q6HR PRN Vomiting Intake and Output 04/12/19 04/13/19 04/13/19 22:59 06:59 14:59 Other: Weight 61.689 kg Patient Weight 04/14/19 06:59 Weight 61.689 kg 04/13/19 08:10 04/13/19 08:10
[2019-04-14 00:07] VITALS: RESP 18
[2019-04-14] MEDS: HEPARIN SOD,PORK IN 0.45% NACL 25,000 UNIT in 0.45% NACL 1 250ML.BAG IV SCH (03:46)
[2019-04-14 06:36] LABS: Basophils % (A) 0 %; Eosinophils # (A) 0.3 k/uL (0-0.7); Eosinophils % (A) 6 %; HCT 40.5 % (34.0-46.0); HGB 13.3 gm/dL (11.4-16.0); Lymphocytes # (A) 1.3 k/uL (1.0-4.8); Lymphocytes % (A) 27 %; MCH 28.9 pg (25.0-35.0); MCHC 32.8 g/dL (31.0-37.0); MCV 88.3 fL (80.0-100.0); Mean Platelet Volume 7.4; Monocytes # (A) 0.3 k/uL (0-1.0); Monocytes % (A) 6 %; Neutrophils # (A) 2.9 k/uL (1.3-7.7); Neutrophils % (A) 58 %; Platelet Count 213 k/uL (150-450); RBC 4.58 m/uL (3.80-5.40); RDW 14.7 % (11.5-15.5)
[2019-04-14 06:47] LABS: ALT 24 U/L (9-52); AST 27 U/L (14-36); African American GFR (CKD) >90 (>60 ml/min/1.73 sqM); Albumin 3.6 g/dL (3.5-5.0); Alkaline Phosphatase 76 U/L (38-126); Anion Gap 6 mmol/L; Blood Urea Nitrogen 15 mg/dL (7-17); Calcium 8.6 mg/dL (8.4-10.2); Carbon Dioxide 28 mmol/L (22-30); Chloride 107 mmol/L (98-107); Cholesterol 187 mg/dL (<200); Glucose 95 mg/dL (74-99); HDL Cholesterol 54 mg/dL (40-60); LDL Cholesterol,Calculated 114 mg/dL (0-99); Potassium 3.6 mmol/L (3.5-5.1); Sodium 141 mmol/L (137-145); Total Bilirubin 0.6 mg/dL (0.2-1.3); Total Protein 6.3 g/dL (6.3-8.2); Triglycerides 97 mg/dL (<150)
[2019-04-14] MEDS ORDERED: FAMOTIDINE 20 MG TAB PO SCH (09:00)
[2019-04-14] MEDS ORDERED: DILTIAZEM CD 120 MG CAP.ER.24H PO SCH (09:00)
[2019-04-14] MEDS ORDERED: ASCORBIC ACID 500 MG TAB PO SCH (09:00)
[2019-04-14] MEDS ORDERED: ASPIRIN 325 MG TAB PO SCH (09:00)
[2019-04-14] MEDS ORDERED: ASPIRIN 81 MG PO SCH (09:00)
[2019-04-14] MEDS ORDERED: SODIUM CHLORIDE 0.9% IV ONE (09:09)
[2019-04-14] MEDS ORDERED: DIPYRIDAMOLE IV ONE (09:09)
[2019-04-14] MEDS ORDERED: AMINOPHYLLINE 500 MG/20 ML VIAL IV PRN (09:09)
[2019-04-14] MEDS ORDERED: CAFFEINE CITRATE 60 MG/3 ML VIAL IV PRN (09:09)
--- NOTE | 2019-04-14 10:00 | ECHOF ---
Referral Reason:cp MEASUREMENTS -------- HEIGHT: 154.9 cm WEIGHT: 61.7 kg BP: 110/68 RVIDd: 2.3 cm (< 3.3) IVSd: 1.1 cm (0.6 - 1.1) LVIDd: 4.1 cm (3.9 - 5.3) LVPWd: 1.1 cm (0.6 - 1.1) IVSs: 1.2 cm LVIDs: 2.3 cm LVPWs: 1.2 cm LA Diam: 2.7 cm (2.7 - 3.8) LAESV Index (A-L): 16.85 ml/m Ao Diam: 3.1 cm (2.0 - 3.7) AV Cusp: 1.7 cm (1.5 - 2.6) MV EXCURSION: 13.536 mm (> 18.000) MV EF SLOPE: 46 mm/s (70 - 150) EPSS: 0.8 cm MV E Jalen: 0.86 m/s MV DecT: 226 ms MV A Jalen: 0.77 m/s MV E/A Ratio: 1.12 AR PHT: 942 ms FINDINGS -------- Sinus rhythm. This was a technically adequate study. The left ventricular size is normal. There is borderline concentric left ventricular hypertrophy. Overall left ventricular systolic function is normal with, an EF between 60 - 65 %. The right ventricle is normal in size. Normal LA size by volume 22+/-6 ml/m2. The right atrium is normal in size. Interatrial and interventricular septum intact. There is mild aortic valve sclerosis. There is [id number] aortic regurgitation. The mitral valve leaflets are mildly thickened. Mild mitral annular calcification present. There is trace to mild mitral regurgitation. The tricuspid valve appears structurally normal. Trace/mild (physiologic) pulmonic regurgitation. The aortic root size is normal. Normal inferior vena cava with normal inspiratory collapse consistent with estimated right atrial pre ssure of 5 mmHg. There is no pericardial effusion. Small Pleural Effusion. CONCLUSIONS -------- 1. Sinus rhythm. 2. This was a technically adequate study. 3. The left ventricular size is normal. 4. There is borderline concentric left ventricular hypertrophy. 5. Overall left ventricular systolic function is normal with, an EF between 60 - 65 %. 6. The right ventricle is normal in size. 7. Normal LA size by volume 22+/-6 ml/m2. 8. The right atrium is normal in size. 9. Interatrial and interventricular septum intact. 10. There is mild aortic valve sclerosis. 11. There is gocs-cm-awrfngdl aortic regurgitation. 12. The mitral valve leaflets are mildly thickened. 13. Mild mitral annular calcification present. 14. There is trace to mild mitral regurgitation. 15. The tricuspid valve appears structurally normal. 16. Trace/mild (physiologic) pulmonic regurgitation. 17. The aortic root size is normal. 18. Normal inferior vena cava with normal inspiratory collapse consistent with estimated right atrial pressure of 5 mmHg. 19. There is no pericardial effusion. 20. Small Pleural Effusion. DISTRICT LEADER: Lizzette York RDCS
--- NOTE | 2019-04-14 10:50 | P.PN ---
Subjective This is a pleasant 78 showed female past medical history significant for hypertension, GERD, mild nonobstructive coronary artery disease and asthma. She follows in the office with Dr. Vasquez. We have been asked to see her in consultation secondary to chest discomfort. She is seen and examined laying flat in bed in no acute distress. She denies chest pain, shortness of breath, dizziness or palpitations. Laboratory data reviewed, CBC unremarkable, cardiac enzymes negative 3, LDL 114, HDL 54, creatinine 0.62. Echocardiogram obtained reveals preserved LV systolic function with ejection fraction 60-65% and mild to moderate aortic regurgitation, mild mitral regurgitation. GENERAL: This is a 78-year-old female in no apparent distress at the time of my examination. HEENT: Head is atraumatic, normocephalic. Pupils are equal, round. Sclerae anicteric. Conjunctivae are clear. Mucous membranes of the mouth are moist. Neck is supple. There is no jugular venous distention. No carotid bruit is heard. LUNGS: Clear to auscultation no wheezes, rales or rhonchi. No chest wall tenderness is noted on palpation or with deep breathing. HEART: Regular rate and rhythm without murmurs, rubs or gallops. S1 and S2 heard. EXTREMITIES: No evidence of peripheral edema and no calf tenderness noted. ASSESSMENT Chest pain, atypical. An acute coronary event has been ruled out. Mild nonobstructive coronary artery disease Hypertension Asthma PLAN An acute coronary event has been ruled out. Proceed with Persantine stress test to assess for reversible cardiac ischemia. If stress test is abnormal we will consider coronary angiography. If normal perfusion scan she may be discharged and follow-up with Dr. Vasquez. Nurse Practitioner note has been reviewed, I agree with a documented findings and plan of care. Patient was seen and examined. Objective - Vital Signs Vital signs: Vital Signs Temp 97.3 F L 04/14/19 07:30 Pulse 62 04/14/19 07:30 Resp 18 04/14/19 07:30 BP 121/62 04/14/19 07:30 Pulse Ox 95 04/14/19 07:30 Intake & Output 04/13/19 04/14/19 04/14/19 18:59 06:59 18:59 Intake Total 207.606 Output Total 200 Balance -200 207.606 Weight 61.689 kg Intake: Intake, IV Titration 207.606 Amount Heparin Sod,Pork in 0.45% 207.606 NaCl 25,000 unit In 0.45 % NaCl 1 250ml.bag @ 12 UNITS/KG/HR 7.403 mls/hr IV .Q24H [facility]ILET Rx#: [id number] Output: Urine 200 Other: # Voids 1 - Labs CBC & Chem 7: 04/14/19 06:21 04/14/19 06:21 Labs: Abnormal Lab Results - Last 24 Hours (Table) 04/13/19 04/13/19 04/14/19 Range/Units 14:53 20:23 06:21 APTT 58.5 H 56.7 H (22.0-30.0) sec LDL Cholesterol, Calc 114 H (0-99) mg/dL 04/14/19 Range/Units 06:21 APTT 79.6 H (22.0-30.0) sec LDL Cholesterol, Calc (0-99) mg/dL Microbiology - Last 24 Hours (Table) 04/13/19 15:35 Urine Culture - Preliminary Urine,Voided
--- NOTE | 2019-04-14 13:02 | EST ---
EXERCISE STRESS DATE OF SERVICE: 04/14/2019 AGE: 78 SEX: Female HT: 61" WT: 136 pounds PROTOCOL: Persantine Cardiolite STAGE: DURATION OF EXERCISE: HEART RATE REST: 67 BLOOD PRESSURE REST: 133/64 MAXIMUM HEART RATE ACHIEVED: 101 MAXIMUM BLOOD PRESSURE: 133/64 85% MPHR: 100% MPHR: METS: INDICATION: Chest pain. CLINICAL INFORMATION: Baseline EKG shows sinus rhythm, normal axis, normal intervals. The patient was given intravenous Persantine over a period of 4 minutes as per protocol. Did not have chest pain or diagnostic ST-segment depression. CONCLUSIONS: 1. Negative stress test by EKG criteria. 2. Cardiolite portion of the stress test will be reported separately. MMODL / IJN: [id number] /
--- NOTE | 2019-04-14 13:12 | NM ---
EXAMINATION TYPE: NM stress persantine cardiolit DATE OF EXAM: 04/14/2019 COMPARISON: NONE HISTORY: 78-year-old female with chest pain TECHNIQUE: After the intravenous administration of 10.35 mCi Tc 99m Sestamibi - Cardiolite resting S PECT images acquired 50 minutes post injection. The patient received 35.2 mg Persantine, 26.7 mCi Tc 99m Sestamibi - Stress images obtained 50 minute s post injection FINDINGS: Review of stress and rest SPECT images demonstrates no distinct perfusion abnormality. Gated analysi s shows normal wall motion with an estimated left ventricular ejection fraction of 75 %. TID is calc ulated at 1.0, within normal limits. IMPRESSION: No scintigraphic evidence for reversible ischemia.
[2019-04-14 13:27] VITALS: BP 150/80; PULSE 70; TEMP 97.4
--- NOTE | 2019-04-14 13:58 | P.DS ---
Providers Date of admission: 04/13/19 11:10 Expected date of discharge: 04/14/19 Attending physician: Stalin Duong Consults: 04/13/19 10:09 Consult Physician Urgent Consulting Provider: Mono Suarez Consult Reason/Comments: chest pain Do you want consulting provider notified?: Yes Primary care physician: Stalin Duong [facility] Course: Discharge diagnosis 1. Chest pain, acute coronary syndrome ruled out. Troponins negative 3. Chest x-ray showing no acute pulmonary process. EKG completed showing normal sinus rhythm. Stress test showing no evidence of reversible ischemia. Patient's symptoms have resolved. Echo did show an EF of 6065% with mild to moderate aortic regurgitation. She's been cleared by cardiology for discharge. 2. History of asthma 3. History of chest pain/angina 4. History of GERD 5. History of osteoarthritis 6. History of urinary tract infection. Patient has no urinary symptoms at this time. We'll hold off on antibiotics. Follow-up with urine culture in office. UA showing moderate amount of leukocyte Estrace. Urine culture will be ordered and pending. Patient reports she is unable to tolerate most antibiotics Hospital course This is a 78-year-old female patient who presented to the ER with complaints of chest pain. Patient reports that symptoms have been intermittently occurring over the last couple days but this morning she woke up with much worse pain that radiated to neck and shoulder. Denies any association shortness breath or nausea. Patient has has medical history of asthma, chest pain, GERD, hypertension, osteoarthritis and gastritis, UTIs and anxiety. Chest x-ray completed showing very minimal left basilar subsegmental atelectasis otherwise no acute pulmonary process. EKG completed showing sinus rhythm, EKG. troponin negative. Patient started on heparin drip. Cardiology services consulted. At this time patient denies any chest pain or shortness breath. Patient denies nausea vomiting or diarrhea. Patient denies any urinary burning or frequency 04/14/2019 patient is medically stable for discharge. She's been cleared by cardiology for discharge. Acute coronary syndrome ruled out. Chest pain has resolved. Stress test negative. Patient to continue with her current medications. She'll follow up with Dr. Duong in 1 week and cardiology in 2 weeks. Please refer to chart for any further details. I performed an examination of the patient and discussed their management with the physician Marzipan Maker. I have reviewed the Physician Marzipan Maker's notes and agree with the documented findings and plan of care Patient Condition at Discharge: Stable Plan - Discharge Summary Discharge Rx Participant: No New Discharge Prescriptions: Continue Diltiazem HCl [Diltiazem 24Hr ER] 120 mg PO DAILY Aspirin 81 mg PO DAILY ALPRAZolam [Xanax] 1 mg PO BID PRN PRN Reason: Anxiety Ergocalciferol [Vitamin D2 (DRISDOL)] 50,000 unit PO MO Vit C/Ascorb Sod/Multivit-Min [Emergen-C 500 mg Chewable Tab] 500 mg PO DAILY Discharge Medication List ALPRAZolam [Xanax] 1 mg PO BID PRN 09/06/14 [History] Aspirin 81 mg PO DAILY 09/06/14 [History] Diltiazem HCl [Diltiazem 24Hr ER] 120 mg PO DAILY 09/06/14 [History] Ergocalciferol [Vitamin D2 (DRISDOL)] 50,000 unit PO MO 04/13/19 [History] Vit C/Ascorb Sod/Multivit-Min [Emergen-C 500 mg Chewable Tab] 500 mg PO DAILY 04/13/19 [History] Follow up Appointment(s)/Referral(s): Cinthia Vasquez MD [Family Provider] - 2 Weeks Stalin Duong MD [Primary Care Provider] - 1 Week Activity/Diet/Wound Care/Special Instructions: Diet: cardiac Activity: as tolerated Discharge Disposition: HOME SELF-CARE
[2019-04-17] MEDS ORDERED: ERGOCALCIFEROL 50,000 UNIT CAP PO SCH (09:00)
== END 2019-04-14 15:19 | disposition home or self-care (01) ==
LOC: EC 07:48 → 1SOBS 11:10
PROVIDERS: ADMIT Internal Medicine; ATTEND Internal Medicine
DX: R07.89 Other chest pain (principal); I10 Essential (primary) hypertension; K21.9 Gastro-esophageal reflux disease without esophagitis; J45.909 Unspecified asthma, uncomplicated; I35.1 Nonrheumatic aortic (valve) insufficiency; I49.9 Cardiac arrhythmia, unspecified; M19.90 Unspecified osteoarthritis, unspecified site; F41.9 Anxiety disorder, unspecified; I25.10 Atherosclerotic heart disease of native coronary artery without angina pectoris; Z90.49 Acquired absence of other specified parts of digestive tract; Z87.440 Personal history of urinary (tract) infections; Z87.19 Personal history of other diseases of the digestive system; Z79.82 Long term (current) use of aspirin; Z79.899 Other long term (current) drug therapy; Z88.1 Allergy status to other antibiotic agents; Z88.2 Allergy status to sulfonamides; Z88.8 Allergy status to other drugs, medicaments and biological substances; Z82.5 Family history of asthma and other chronic lower respiratory diseases; Z82.49 Family history of ischemic heart disease and other diseases of the circulatory system
CPT/HCPCS: 96366 ×2; 96376 ×2; 96365; 99285; 36415; 93005; 93017; 93306; 83880; 80061; 80053 ×2; 83690; 83735; 84484; 85025 ×2; 85610; 85730 ×2; 81001; 87086; 87077; 87186; 71046; 78452; G0378 ×2; A9500; J1644 ×3; J1245

== ENCOUNTER → 2019-05-16 | Outpatient (CLI) | payer MEDICARE, BC ==
--- NOTE | 2019-05-17 13:51 | MM ---
Reason for exam: screening (asymptomatic). Last mammogram was performed 1 year and 8 months ago. History: Patient is postmenopausal. Taking estrogen for 1 year beginning at age 50. Physical Findings: A clinical breast exam by your physician is recommended on an annual basis and results should be correlated with mammographic findings. MG Screening Mammo w CAD Bilateral CC and MLO view(s) were taken. Prior study comparison: September 15, 2017, bilateral MG 3d screening mammo w/cad. July 05, 2015, bilateral MG screening mammo w CAD. There are scattered fibroglandular densities. Stable benign calcifications. There is no discrete abnormality. No significant changes when compared with prior studies. ASSESSMENT: Benign, BI-RAD 2 RECOMMENDATION: Routine screening mammogram of both breasts in 1 year.
== END | disposition home or self-care (01) ==
LOC: RADMAMWWP 14:20
PROVIDERS: ATTEND Internal Medicine
DX: Z12.31 Encounter for screening mammogram for malignant neoplasm of breast (principal)
CPT/HCPCS: 77067

== ENCOUNTER 2019-10-21 20:53 | Emergency (ER) | payer MEDICARE, BC ==
[2019-10-21 21:37] LABS: ALT 20 U/L (4-34); AST 48 U/L (14-36); African American GFR (CKD) >90 (>60 ml/min/1.73 sqM); Albumin 4.3 g/dL (3.5-5.0); Alkaline Phosphatase 110 U/L (38-126); Anion Gap 6 mmol/L; Blood Urea Nitrogen 17 mg/dL (7-17); Calcium 8.9 mg/dL (8.4-10.2); Carbon Dioxide 28 mmol/L (22-30); Chloride 103 mmol/L (98-107); Glucose 116 mg/dL (74-99); Magnesium 2.2 mg/dL (1.6-2.3); Non-African American GFR(CKD) >90 (>60 ml/min/1.73 sqM); Sodium 137 mmol/L (137-145); Total Bilirubin 0.7 mg/dL (0.2-1.3); Total Protein 7.1 g/dL (6.3-8.2)
[2019-10-21 21:40] LABS: Potassium 4.4 mmol/L (3.5-5.1)
[2019-10-21] MEDS ORDERED: MORPHINE SULFATE 2 MG/ML SYRINGE IVP STA (21:40)
--- NOTE | 2019-10-21 21:50 | XR ---
EXAMINATION TYPE: XR chest 2V DATE OF EXAM: 10/21/2019 COMPARISON: 04/13/2019 HISTORY: Chest pain TECHNIQUE: 2 views FINDINGS: There is small linear density bilateral lung base. Heart is normal. Lungs are clear of cons olidation. There is no pleural effusion. There are no hilar masses. Bony thorax is intact. IMPRESSION: Mild subsegmental atelectasis right and left lung base is new compared to old exam. Kay l heart.
[2019-10-21 21:52] LABS: Basophils % (A) 0 %; Eosinophils # (A) 0.2 k/uL (0-0.7); Eosinophils % (A) 2 %; HCT 42.5 % (34.0-46.0); HGB 14.2 gm/dL (11.4-16.0); Lymphocytes # (A) 1.1 k/uL (1.0-4.8); Lymphocytes % (A) 12 %; MCH 28.9 pg (25.0-35.0); MCHC 33.4 g/dL (31.0-37.0); MCV 86.7 fL (80.0-100.0); Mean Platelet Volume 8.7; Monocytes # (A) 0.5 k/uL (0-1.0); Monocytes % (A) 6 %; Neutrophils % (A) 78 %; Platelet Count 253 k/uL (150-450); RDW 12.8 % (11.5-15.5); WBC 8.9 k/uL (3.8-10.6)
[2019-10-21 21:54] LABS: INR 0.9 (<1.2); Partial Thromboplastin Time 25.4 sec (22.0-30.0); Prothrombin Time 9.9 sec (9.0-12.0)
[2019-10-21] MEDS ORDERED: ALPRAZolam 0.5 MG TAB PO STA (22:29)
--- NOTE | 2019-10-21 22:48 | CT ---
EXAMINATION TYPE: CT angio thor/abd pel aorta DATE OF EXAM: 10/21/2019 COMPARISON: None HISTORY: atraumatic thoracic back pain CT DLP: 1240.8 mGycm Automated exposure control for dose reduction was used. CONTRAST: Performed without and with IV Contrast, patient injected with 100 mL of Isovue 300. Multiple axial sections were obtained from the thoracic inlet to the floor the pelvis without and sub sequently with intravenous contrast Isovue 100 mL. There are 3-D post processed images. There is normal branching pattern of the great vessels on the aortic arch. Ascending aorta measures 3 .3 cm. There is no thoracic aortic aneurysm or dissection. There is normal contrast opacification of the pulmonary arteries. The lungs are clear of infiltrate. There is no evidence of a pulmonary mass. There is mild scarring and subsegmental atelectasis right lung base. There is no pleural effusion. Th ere is no pericardial effusion. Abdominal aorta has normal size and contour. There is minimal atherosclerotic plaque formation. There is patency of the celiac artery and superior mesenteric artery. There is bilateral patency of the re nal arteries. There is no evidence of aortic stenosis. There is bilateral patency of the iliac and fe moral arteries. There is no evidence of arterial aneurysm or dissection. There is no evidence of hemo dynamic stenosis. Liver spleen stomach pancreas appear normal. There are clips from cholecystectomy. Bile ducts are not dilated. There is no adrenal mass. Kidneys show satisfactory contrast opacification. There is no hyd ronephrosis. Ureters are not dilated. Bladder distends smoothly. There is no inguinal hernia. There i s no free fluid in the pelvis. There is no mesenteric edema. There is no ascites or free air. There i s 1 cm calcified granuloma in the left lobe of the liver. Thoracic and lumbar vertebra appear intact. There is mild thoracolumbar dextroscoliosis. There is no compression fracture. Sternum is intact. Bony pelvis appears intact. Hip joints appear fairly normal. IMPRESSION: Mild atherosclerotic vascular disease. No evidence of arterial aneurysm or dissection. No evidence of pulmonary embolism.
[2019-10-21 23:24] VITALS: BP 154/66; PULSE 81; RESP 16; TEMP 98.4
--- NOTE | 2019-10-21 23:26 | ED ---
Back Pain HPI - General Source: patient Limitations: no limitations <Eleni Horton - Last Filed: 10/22/19 15:46> <Adi Gamez - Last Filed: 10/22/19 17:07> - General Chief Complaint: Back Pain/Injury Stated Complaint: Back Pain Time Seen by Provider: 10/21/19 20:56 - History of Present Illness Initial Comments: 79-year-old female presented for chief complaint of left upper back pain x 1 day. Patient states that this morning she noticed left upper back pain. Patient denies any injury or fall. Patient denies any chest pressure or shortness of breath. She denies any jaw or ear pain patient denies radiation down the arm or UE/LE weakness or sensation deficits. Patient states that the pain appears to be now moving towards the lower back. She denies any abdominal pain denies any nausea vomiting diarrhea epigastric pain. Patient is not sure if she slept on it wrong or what was the cause when pain persisted this evening she presents emergency department for further evaluation. Remaining ROS (-). (Eleni Horton) - Related Data Home Medications Medication Instructions Recorded Confirmed ALPRAZolam [Xanax] 1 mg PO BID PRN 09/06/14 04/13/19 Aspirin 81 mg PO DAILY 09/06/14 04/13/19 Diltiazem HCl [Diltiazem HCl 24Hr 120 mg PO DAILY 09/06/14 04/13/19 ER] Ergocalciferol [Vitamin D2 50,000 unit PO MO 04/13/19 04/13/19 (DRISDOL)] Vit C/Ascorb Sod/Multivit-Min 500 mg PO DAILY 04/13/19 04/13/19 [Emergen-C 500 mg Chewable Tab] Previous Rx's Medication Instructions Recorded traMADol HCL [Ultram] 50 mg PO Q6HR PRN 3 Days #12 tab 10/21/19 Allergies Allergy/AdvReac Type Severity Reaction Status Date / Time clindamycin HCl Allergy Intermediate Rash/Hives Verified 10/21/19 21:04 [From Cleocin] clindamycin palmitate HCl Allergy Intermediate Rash/Hives Verified 10/21/19 21:04 [From Cleocin] clindamycin phosphate Allergy Intermediate Rash/Hives Verified 10/21/19 21:04 [From Cleocin] Sulfa (Sulfonamide Allergy Intermediate Rash/Hives Verified 10/21/19 21:04 Antibiotics) cefuroxime [From Ceftin] Allergy Unknown Unknown-OBTAINED Verified 10/21/19 21:[address] [facility] OFFICE. clarithromycin [From Biaxin] Allergy Unknown Unknown-OBTAINED Verified 10/21/19 21:[address] [facility] OFFICE ezetimibe [From Zetia] Allergy Unknown Unknown-OBTAINED Verified 10/21/19 21:[address] [facility] OFFICE ofloxacin [From Floxin] Allergy Unknown Unknown-OBTAINED Verified 10/21/19 21:[address] HAD[facility] OFFICE Apxdcay-Ffk-Yeb Reductase Allergy Unknown Unknown-OBTAINED Verified 10/21/19 21:[address] HADLEY OFFICE sulfamethoxazole Allergy Unknown Unknown Verified 10/21/19 21:04 [From Bactrim] trimethoprim [From Bactrim] Allergy Unknown Unknown Verified 10/21/19 21:04 Review of Systems ROS Other: All systems not noted in ROS Statement are negative. <Eleni Horton - Last Filed: 10/22/19 15:46> ROS Other: All systems not noted in ROS Statement are negative. <Adi Gamez - Last Filed: 10/22/19 17:07> ROS Statement: Those systems with pertinent positive or pertinent negative responses have been documented in the HPI. Past Medical History Past Medical History: Asthma, Chest Pain / Angina, GERD/Reflux, Hypertension, Osteoarthritis (OA) Additional Past Medical History / Comment(s): Gastritis, irregular heart beat at times, UTIs, occasional stress incontinence, pancereatitis after ERCP History of Any Multi-Drug Resistant Organisms: None Reported Past Surgical History: Adenoidectomy, Cholecystectomy, Heart Catheterization, Hysterectomy, Orthopedic Surgery, Tonsillectomy Additional Past Surgical History / Comment(s): Mini lap with L salpingo-oophorectomy, bilateral cataract removals/lens implants, A&P repair, R ankle ORIF Past Anesthesia/Blood Transfusion Reactions: No Reported Reaction Additional Past Anesthesia/Blood Transfusion Reaction / Comment(s): has never received any blood transfusions Past Psychological History: Anxiety Smoking Status: Never smoker - Past Family History Father Family Medical History: Myocardial Infarction ([place]) Additional Family Medical History / Comment(s): Bad hip, enlarged heart Mother Family Medical History: COPD, Pneumonia Additional Family Medical History / Comment(s): PNA <Eleni Horton - Last Filed: 10/22/19 15:46> General Exam Limitations: no limitations <Eleni Horton - Last Filed: 10/22/19 15:46> - General Exam Comments Initial Comments: General: The patient is awake and alert, in no distress, and does not appear acutely ill. Eye: +3 mm pupils are equal, round and reactive to light, extra-ocular movements are intact. No nystagmus. There is normal conjunctiva bilaterally. No signs of icterus. No photophobia Ears, nose, mouth and throat: There are moist mucous membranes and no oral lesions. Oropharynx was not erythematous there is no tonsillar enlargement exudates or lesions. Uvula midline. Tympanic membranes are not erythematous or is no effusions bulging or retraction. Neck: The neck is supple, there is no tenderness or JVD. No nuchal rigidity Cardiovascular: There is a regular rate and rhythm. No murmur, rub or gallop is appreciated. Respiratory: Lungs are clear to auscultation, respirations are non-labored, breath sounds are equal. No wheezes, stridor, rales, or rhonchi. No retractions or abdominal breathing. Gastrointestinal: Soft, non-distended, non-tender abdomen without masses or organomegaly noted. There is no rebound or guarding present. Bowel sounds are unremarkable. Musculoskeletal: Tenderness to palpation of the left upper back, near shoulder blade, increases with ROM of the right shoulder. Normal ROM of the elbows, wrists b/l-- no tenderness. Strength 5/5 of the UE b/l. Sensation intact of the UE b/l. Radial and DP pulses equal bilaterally 2+. Neurological: A&O x 3. CN II-XII intact grossly, There are no obvious motor or sensory deficits. Coordination appears grossly intact. Speech appears normal, no muffling. Skin: Skin is warm and dry and no rashes or lesions are noted. No extremity edema Psychiatric: Cooperative (Eleni Horton) Course Vital Signs 10/21/19 10/21/19 10/21/19 20:55 22:38 23:23 Temperature 98.6 F 98.4 F Pulse Rate 83 79 81 Respiratory 20 20 16 Rate Blood Pressure 154/63 158/70 154/66 O2 Sat by Pulse 97 95 98 Oximetry Medical Decision Making - Lab Data Result diagrams: 10/21/19 21:16 10/21/19 21:16 <Eleni Horton - Last Filed: 10/22/19 15:46> - Lab Data Result diagrams: 10/21/19 21:16 10/21/19 21:16 <Adi Gamez - Last Filed: 10/22/19 17:07> - Medical Decision Making 79-year-old female presenting for atraumatic left upper back pain. Reproduced with palpation as well as range motion left shoulder on physical examination. Patient states the pain is in the back when the left shoulder is ranged. Patient is neurovascularly intact. There is no pulse deficits. Patient has no leg swelling arm swelling she appears neurovascularly intact with no focal neurological deficits. CTA revealed no aneurysm. Troponin negative patient denies chest pressure or shortness of breath. EKG no acute findings of ischemia. This was reviewed by my attending provider. Chest x-ray no focal infiltrates. There is no evidence of blood or embolism on CT of the chest. At this time given physical examination findings patient's workup I feels is most likely musculoskeletal patient was provided prescriptive for tramadol for pain management and discuss the appropriate usage of the medication and risks involved. Patient verbalized understanding of discharge. Well with return p arameters as discussed as well as follow-up with her primary care provider in one to [address] Gamez who value patient prior to discharge is agreeable to this care plan and discharge at this time. (Eleni Horton) I did personally examine and evaluate this patient. She has left upper back pain with focal tenderness. CT angiography negative for acute pathology. L aboratory testing and EKG are unremarkable. Symptoms felt to be muscular skeletal, patient has adequate pain control emergency department, she is prescribed pain medication and is encouraged to follow up with her primary care physician. (Adi Gamez) - Lab Data Lab Results 10/21/19 10/21/19 10/21/19 Range/Units 21:16 21:16 21:16 WBC 8.9 (3.8-10.6) k/uL RBC 4.90 (3.80-5.40) m/uL Hgb 14.2 (11.4-16.0) gm/dL Hct 42.5 (34.0-46.0) % MCV 86.7 (80.0-100.0) fL MCH 28.9 (25.0-35.0) pg MCHC 33.4 (31.0-37.0) g/dL RDW 12.8 (11.5-15.5) % Plt Count 253 (150-450) k/uL Neutrophils % 78 % Lymphocytes % 12 % Monocytes % 6 % Eosinophils % 2 % Basophils % 0 % Neutrophils # 7.0 (1.3-7.7) k/uL Lymphocytes # 1.1 (1.0-4.8) k/uL Monocytes # 0.5 (0-1.0) k/uL Eosinophils # 0.2 (0-0.7) k/uL Basophils # 0.0 (0-0.2) k/uL PT (9.0-12.0) sec INR (<1.2) APTT (22.0-30.0) sec Sodium 137 (137-145) mmol/L Potassium 4.4 (3.5-5.1) mmol/L Chloride 103 (98-107) mmol/L Carbon Dioxide 28 (22-30) mmol/L Anion Gap 6 mmol/L BUN 17 (7-17) mg/dL Creatinine 0.55 (0.52-1.04) mg/dL Est GFR (CKD-EPI)AfAm >90 (>60 ml/min/1.73 sqM) Est GFR (CKD-EPI)NonAf >90 (>60 ml/min/1.73 sqM) Glucose 116 H (74-99) mg/dL Calcium 8.9 (8.4-10.2) mg/dL Magnesium 2.2 (1.6-2.3) mg/dL Total Bilirubin 0.7 (0.2-1.3) mg/dL AST 48 H (14-36) U/L ALT 20 (4-34) U/L Alkaline Phosphatase 110 (38-126) U/L Troponin I <0.012 (0.000-0.034) ng/mL Total Protein 7.1 (6.3-8.2) g/dL Albumin 4.3 (3.5-5.0) g/dL 10/21/19 Range/Units 21:16 WBC (3.8-10.6) k/uL RBC (3.80-5.40) m/uL Hgb (11.4-16.0) gm/dL Hct (34.0-46.0) % MCV (80.0-100.0) fL MCH (25.0-35.0) pg MCHC (31.0-37.0) g/dL RDW (11.5-15.5) % Plt Count (150-450) k/uL Neutrophils % % Lymphocytes % % Monocytes % % Eosinophils % % Basophils % % Neutrophils # (1.3-7.7) k/uL Lymphocytes # (1.0-4.8) k/uL Monocytes # (0-1.0) k/uL Eosinophils # (0-0.7) k/uL Basophils # (0-0.2) k/uL PT 9.9 (9.0-12.0) sec INR 0.9 (<1.2) APTT 25.4 (22.0-30.0) sec Sodium (137-145) mmol/L Potassium (3.5-5.1) mmol/L Chloride (98-107) mmol/L Carbon Dioxide (22-30) mmol/L Anion Gap mmol/L BUN (7-17) mg/dL Creatinine (0.52-1.04) mg/dL Est GFR (CKD-EPI)AfAm (>60 ml/min/1.73 sqM) Est GFR (CKD-EPI)NonAf (>60 ml/min/1.73 sqM) Glucose (74-99) mg/dL Calcium (8.4-10.2) mg/dL Magnesium (1.6-2.3) mg/dL Total Bilirubin (0.2-1.3) mg/dL AST (14-36) U/L ALT (4-34) U/L Alkaline Phosphatase (38-126) U/L Troponin I (0.000-0.034) ng/mL Total Protein (6.3-8.2) g/dL Albumin (3.5-5.0) g/dL Disposition Is patient prescribed a controlled substance at d/c from ED?: Yes When asked, does pt state using other controlled substances?: No If prescribed controlled substance>3 days was MAPS reviewed?: Prescribed <3 Days If opioid is for acute pain is fill amount 7 days or less?: Yes If Rx opioid, was Start Talking consent form obtained?: Yes Time of Disposition: 23:25 <Eleni Horton - Last Filed: 10/22/19 15:46> <Adi Gamez - Last Filed: 10/22/19 17:07> Clinical Impression: Thoracic back pain Disposition: HOME SELF-CARE Condition: Good Instructions (If sedation given, give patient instructions): Back Pain (ED) Additional Instructions: Please use medication as discussed. Please follow-up with family doctor in the next 2 days.. Please return to emergency room if the symptoms increase or worsen or for any other concerns. Prescriptions: traMADol HCL [Ultram] 50 mg PO Q6HR PRN 3 Days #12 tab PRN Reason: Pain Referrals: Stalin Duong MD [Primary Care Provider] - 1-2 days
== END 2019-10-21 23:23 | disposition home or self-care (01) ==
LOC: EC 20:53
DX: M54.6 Pain in thoracic spine (principal); I20.9 Angina pectoris, unspecified; I10 Essential (primary) hypertension; M19.90 Unspecified osteoarthritis, unspecified site; Z88.1 Allergy status to other antibiotic agents; Z88.2 Allergy status to sulfonamides; Z88.8 Allergy status to other drugs, medicaments and biological substances; Z79.82 Long term (current) use of aspirin; Z79.899 Other long term (current) drug therapy; Z86.79 Personal history of other diseases of the circulatory system; Z96.698 Presence of other orthopedic joint implants
CPT/HCPCS: 36415; 93005; 80053; 83735; 84484; 85025; 85610; 85730; 71046; 71275; 74174; 99285; 96374; J2270; Q9967

== ENCOUNTER 2020-03-20 10:18 | Day surgery (SDC) | payer MEDICARE, BC ==
[2020-03-15 13:21] VITALS: BMI 25.3
[~2020-03-20 10:18] MED LIST changes: -LIDOCAINE 1% 20 ML VIAL (10MG/ML) FOR IV START INTRADERMA PRN
[2020-03-20 10:32] VITALS: TEMP 97.6
[2020-03-20] MEDS ORDERED: LACTATED RINGERS 1,000 ML IV ONE (10:32)
[2020-03-20] MEDS ORDERED: LIDOCAINE 1% (10MG/ML) FOR IV START INTRADERMA ONE (10:36)
[2020-03-20] MEDS ORDERED: LIDOCAINE 1% INJ 10MG/ML (20 ML MDV) ONE (11:52)
[2020-03-20] MEDS ORDERED: PROPOFOL 10 MG/ML 20 ML VIAL IV ONE (11:52)
--- NOTE | 2020-03-20 12:22 | P.PCN ---
Date of Procedure: 03/20/20 Procedure(s) Performed: BRIEF HISTORY: Patient is a 79-year-old pleasant. White female scheduled for an elective colonoscopy as a part of evaluation of intermittent rectal bleeding for the last few months duration. No prior history of colonoscopy. PROCEDURE PERFORMED: Colonoscopy with biopsy and snare polypectomy. PREOPERATIVE DIAGNOSIS: Intermittent rectal bleeding. IV sedation per Anesthesia. PROCEDURE: After informed consent was obtained, the patient, was brought into the endoscopy unit. IV sedation was administered by Anesthesia under continuous monitoring. Digital rectal examination was normal. Initially the Olympus CF-160 flexible video colonoscope was then inserted in the rectum, gradually advanced into the cecum without any difficulty. Careful examination was performed as the scope was gradually being withdrawn. Ileocecal valve and the appendiceal orifice were visualized and appeared normal. Prep was excellent. Mucosa of the cecum had a 2 mm polyp that was removed by cold biopsy. He will ascending colon there was a 1 cm broad-based polyp removed by snare polypectomy. In the transverse colon there was another 2 mm sessile polyp removed by cold biopsy. Rest of the ascending colon, transverse colon, descending colon, sigmoid colon, and rectum appeared normal. The mid rectum there was a 2 cm broad-based polyp removed by snare polypectomy. Moderate left-sided diverticulosis seen. Retroflexion was performed in the rectum and there was evidence of rectal prolapse identified. No hemorrhoids seen.. The patient tolerated the procedure well. IMPRESSION: 2 mm cecal polyp status post removal by cold biopsy 1 cm broad-based ascending colon polyp status post snare polypectomy 2 mm transverse colon polyp status post removal by cold biopsy 2 centimeters mid rectal polyp status post polypectomy moderate left-sided diverticulosis. Mild rectal prolapse RECOMMENDATIONS: Findings of this examination were discussed with the patient as well as her family. She was advised to follow with the biopsy results. If the biopsy shows an adenoma she can have a repeat colonoscopy in 3 years.
[2020-03-20 12:29] VITALS: RESP 16
[2020-03-20 12:41] VITALS: BP 157/67; PULSE 75
== END 2020-03-20 13:03 | disposition home or self-care (01) ==
LOC: ORWHC2ENDO 10:18
PROVIDERS: ATTEND Internal Medicine Gastroenterology
DX: D12.2 Benign neoplasm of ascending colon (principal); D12.3 Benign neoplasm of transverse colon; D12.8 Benign neoplasm of rectum; K63.5 Polyp of colon; K62.3 Rectal prolapse; K57.30 Diverticulosis of large intestine without perforation or abscess without bleeding; I10 Essential (primary) hypertension; K21.9 Gastro-esophageal reflux disease without esophagitis; Z79.899 Other long term (current) drug therapy
CPT/HCPCS: 88305; 45380; 45385; J2001; J2704

== ENCOUNTER → 2020-10-18 | Outpatient (CLI) | payer MEDICARE, BC ==
--- NOTE | 2020-10-22 10:42 | MM ---
Reason for exam: screening (asymptomatic). Last mammogram was performed 1 year and 5 months ago. History: Patient is postmenopausal. Took estrogen for 1 year beginning at age 50. Physical Findings: A clinical breast exam by your physician is recommended on an annual basis and results should be correlated with mammographic findings. MG 3D Screening Mammo W/Cad Bilateral CC and MLO view(s) were taken. Prior study comparison: May 16, 2019, bilateral MG screening mammo w CAD. September 15, 2017, bilateral MG 3d screening mammo w/cad. There are scattered fibroglandular densities. No significant changes when compared with prior studies. ASSESSMENT: Negative, BI-RAD 1 RECOMMENDATION: Routine screening mammogram of both breasts in 1 year.
== END ==
LOC: RADMAMWWP 13:16
PROVIDERS: ATTEND Internal Medicine
DX: Z12.31 Encounter for screening mammogram for malignant neoplasm of breast (principal); Z78.0 Asymptomatic menopausal state
CPT/HCPCS: 77063; 77067

== ENCOUNTER → 2021-06-18 | Outpatient (CLI) | payer MEDICARE, BC ==
--- NOTE | 2021-06-18 15:12 | XR ---
EXAMINATION TYPE: XR chest 2V DATE OF EXAM: 06/18/2021 COMPARISON: Chest x-ray 10/21/2019 HISTORY: Pneumonia TECHNIQUE: Frontal and lateral views of the chest are obtained. FINDINGS: Questionable infrahilar density on the right not seen with certainty on the lateral exam. There are surgical clips in the upper abdomen. Some probable scarring noted within the lingula, right middle lobe. There may be a spinal curvature, patient is rotated. The aorta is dense. The osseous st ructures are intact. IMPRESSION: Difficult to exclude right middle lobe pneumonia
== END | disposition home or self-care (01) ==
LOC: RADXRMAIN 11:34
PROVIDERS: ATTEND Internal Medicine Cardiovascular Disease
DX: J18.1 Lobar pneumonia, unspecified organism (principal)
CPT/HCPCS: 71046

== ENCOUNTER 2021-07-09 10:54 | Observation (INO) | payer MEDICARE, BC ==
--- NOTE | 2021-07-09 11:37 | ED ---
General Adult HPI - General Chief complaint: Chest Pain Stated complaint: Chest Pain Time Seen by Provider: 07/09/21 10:58 Source: patient, EMS, RN notes reviewed, old records reviewed Mode of arrival: EMS Limitations: no limitations - History of Present Illness Initial comments: 81-year-old female presenting for evaluation of lower chest pain and epigastric pain. She has had some belching and mild nausea. This was not associated with vomiting or diarrhea. She has no previous history of CAD or cardiac history. She states that she is going out of town and was worried and wanted to be checked out. She denies any current chest pain. No dyspnea. No abdominal pain. No nausea or vomiting. No fever. No lower extremity pain or swelling. - Related Data Home Medications Medication Instructions Recorded Confirmed ALPRAZolam [Xanax] 1 mg PO BID PRN 09/06/14 07/09/21 Diltiazem HCl [Cartia Xt] 120 mg PO DAILY 03/15/20 07/09/21 Amoxicillin 500 mg PO TID 07/09/21 07/09/21 Cholecalciferol [Vitamin D3 (25 50 mcg PO DAILY 07/09/21 07/09/21 Mcg = 1000 Iu)] Pantoprazole [Protonix] 40 mg PO DAILY 07/09/21 07/09/21 Allergies Allergy/AdvReac Type Severity Reaction Status Date / Time clindamycin HCl Allergy Intermediate Rash/Hives Verified 07/09/21 12:16 [From Cleocin] clindamycin palmitate HCl Allergy Intermediate Rash/Hives Verified 07/09/21 12:16 [From Cleocin] clindamycin phosphate Allergy Intermediate Rash/Hives Verified 07/09/21 12:16 [From Cleocin] Sulfa (Sulfonamide Allergy Intermediate Rash/Hives Verified 07/09/21 12:16 Antibiotics) cefuroxime [From Ceftin] Allergy Unknown Unknown-OBTAINED Verified 07/09/21 12:[address] [facility] OFF[facility]. clarithromycin [From Biaxin] Allergy Unknown Unknown-OBTAINED Verified 07/09/21 12:[address] [facility] OFF[facility] ezetimibe [From Zetia] Allergy Unknown Unknown-OBTAINED Verified 07/09/21 12:[address] [facility] ofloxacin [From Floxin] Allergy Unknown Unknown-OBTAINED Verified 07/09/21 12:[address] [facility] OFF[facility] [id number]-[id number]-Vus Reductase Allergy Unknown Unknown-OBTAINED Verified 07/09/21 12:[address] [facility] OFFICE sulfamethoxazole Allergy Unknown Unknown Verified 07/09/21 12:16 [From Bactrim] trimethoprim [From Bactrim] Allergy Unknown Unknown Verified 07/09/21 12:16 Review of Systems ROS Statement: Those systems with pertinent positive or pertinent negative responses have been documented in the HPI. ROS Other: All systems not noted in ROS Statement are negative. Past Medical History Past Medical History: Chest Pain / Angina, GERD/Reflux, Hypertension, Osteoarthritis (OA) Additional Past Medical History / Comment(s): Hx Gastritis, irregular heart beat ,Hx UTIs, pancereatitis after ERCP, constipation, blood in stool. History of Any Multi-Drug Resistant Organisms: None Reported Past Surgical History: Adenoidectomy, Cholecystectomy, Heart Catheterization, Hysterectomy, Orthopedic Surgery, Tonsillectomy Additional Past Surgical History / Comment(s): Mini lap with L salpingo- oophorectomy, bilateral cataract removals/lens implants, A&P repair, R ankle ORIF, EGD Past Anesthesia/Blood Transfusion Reactions: No Reported Reaction Additional Past Anesthesia/Blood Transfusion Reaction / Comment(s): . Past Psychological History: Anxiety Smoking Status: Never smoker Past Alcohol Use History: None Reported Past Drug Use History: None Reported - Past Family History Father Family Medical History: Myocardial Infarction ([place]) Additional Family Medical History / Comment(s): Bad hip, enlarged heart Mother Family Medical History: COPD, Pneumonia Additional Family Medical History / Comment(s): PNA General Exam Limitations: no limitations General appearance: alert, in no apparent distress Head exam: Present: atraumatic, normocephalic Eye exam: Present: normal appearance, PERRL ENT exam: Present: normal exam Neck exam: Present: normal inspection. Absent: tenderness, meningismus Respiratory exam: Present: normal lung sounds bilaterally. Absent: respiratory distress, wheezes, rales Cardiovascular Exam: Present: regular rate, normal rhythm GI/Abdominal exam: Present: soft. Absent: distended, tenderness, guarding, rebound Extremities exam: Present: normal inspection, normal capillary refill. Absent: pedal edema Neurological exam: Present: alert, oriented X3, CN II-XII intact. Absent: motor sensory deficit Psychiatric exam: Present: normal affect, normal mood Skin exam: Present: warm, dry, intact. Absent: cyanosis, diaphoretic Course Vital Signs 07/09/21 07/09/21 11:03 11:23 Temperature 98.8 F Pulse Rate 85 Pulse Rate [ 76 Equip Maint Eng ] Respiratory 18 Rate Blood Pressure 121/98 O2 Sat by Pulse 96 Oximetry EKG Findings - EKG Comments: EKG Findings:: EKG: Normal sinus rhythm, rate of 82, ND interval 120, QRS duration 84, QTC [address] segment elevation. Medical Decision Making - Medical Decision Making 81-year-old female presenting with central chest pain. EKG is sinus rhythm without ST segment elevation no definitive signs of ischemia. Chest x-ray shows mild elevation of the right hemidiaphragm but no acute findings. Normal cardiac silhouette. Patient hasn't normal CBC, normal CMP, negative initial troponin. Given the patient's age and risk factor she will be kept in observation for serial cardiac enzymes, telemetry, cardiology consultation. Case discussed with Dr. Duong who will admit. - Lab Data Result diagrams: 07/09/21 11:16 07/09/21 11:16 Lab Results 07/09/21 07/09/21 07/09/21 Range/Units 11:16 11:16 11:16 WBC 4.9 (3.8-10.6) k/uL RBC 5.15 (3.80-5.40) m/uL Hgb 15.1 (11.4-16.0) gm/dL Hct 44.7 (34.0-46.0) % MCV 86.9 (80.0-100.0) fL MCH 29.3 (25.0-35.0) pg MCHC 33.7 (31.0-37.0) g/dL RDW 13.5 (11.5-15.5) % Plt Count 226 (150-450) k/uL MPV 8.1 Neutrophils % 69 % Lymphocytes % 17 % Monocytes % 8 % Eosinophils % 4 % Basophils % 0 % Neutrophils # 3.4 (1.3-7.7) k/uL Lymphocytes # 0.8 L (1.0-4.8) k/uL Monocytes # 0.4 (0-1.0) k/uL Eosinophils # 0.2 (0-0.7) k/uL Basophils # 0.0 (0-0.2) k/uL PT 10.2 (9.0-12.0) sec INR 0.9 (<1.2) APTT 27.1 (22.0-30.0) sec Sodium 138 (137-145) mmol/L Potassium 4.0 (3.5-5.1) mmol/L Chloride 104 (98-107) mmol/L Carbon Dioxide 26 (22-30) mmol/L Anion Gap 8 mmol/L BUN 15 (7-17) mg/dL Creatinine 0.68 (0.52-1.04) mg/dL Est GFR (CKD-EPI)AfAm >90 (>60 ml/min/1.73 sqM) Est GFR (CKD-EPI)NonAf 84 (>60 ml/min/1.73 sqM) Glucose 104 H (74-99) mg/dL Calcium 9.4 (8.4-10.2) mg/dL Magnesium 2.3 (1.6-2.3) mg/dL Total Bilirubin 0.9 (0.2-1.3) mg/dL AST 61 H (14-36) U/L ALT 78 H (4-34) U/L Alkaline Phosphatase 98 (38-126) U/L Troponin I (0.000-0.034) ng/mL Total Protein 7.0 (6.3-8.2) g/dL Albumin 4.1 (3.5-5.0) g/dL Lipase 157 (23-300) U/L 07/09/21 07/09/21 Range/Units 11:16 14:17 WBC (3.8-10.6) k/uL RBC (3.80-5.40) m/uL Hgb (11.4-16.0) gm/dL Hct (34.0-46.0) % MCV (80.0-100.0) fL MCH (25.0-35.0) pg MCHC (31.0-37.0) g/dL RDW (11.5-15.5) % Plt Count (150-450) k/uL MPV Neutrophils % % Lymphocytes % % Monocytes % % Eosinophils % % Basophils % % Neutrophils # (1.3-7.7) k/uL Lymphocytes # (1.0-4.8) k/uL Monocytes # (0-1.0) k/uL Eosinophils # (0-0.7) k/uL Basophils # (0-0.2) k/uL PT (9.0-12.0) sec INR (<1.2) APTT (22.0-30.0) sec Sodium (137-145) mmol/L Potassium (3.5-5.1) mmol/L Chloride (98-107) mmol/L Carbon Dioxide (22-30) mmol/L Anion Gap mmol/L BUN (7-17) mg/dL Creatinine (0.52-1.04) mg/dL Est GFR (CKD-EPI)AfAm (>60 ml/min/1.73 sqM) Est GFR (CKD-EPI)NonAf (>60 ml/min/1.73 sqM) Glucose (74-99) mg/dL Calcium (8.4-10.2) mg/dL Magnesium (1.6-2.3) mg/dL Total Bilirubin (0.2-1.3) mg/dL AST (14-36) U/L ALT (4-34) U/L Alkaline Phosphatase (38-126) U/L Troponin I <0.012 0.020 (0.000-0.034) ng/mL Total Protein (6.3-8.2) g/dL Albumin (3.5-5.0) g/dL Lipase (23-300) U/L Disposition Clinical Impression: Chest pain Disposition: ADMITTED IP TO THIS [facility] Condition: Stable Is patient prescribed a controlled substance at d/c from ED?: No Referrals: Stalin Duong MD [Primary Care Provider] - 1-2 days Time of Disposition: 15:06 Decision to Admit Reason: Admit from EC Decision Date: 07/09/21 Decision Time: 15:06
[2021-07-09 11:42] LABS: ALT 78 U/L (4-34); AST 61 U/L (14-36); African American GFR (CKD) >90 (>60 ml/min/1.73 sqM); Albumin 4.1 g/dL (3.5-5.0); Alkaline Phosphatase 98 U/L (38-126); Anion Gap 8 mmol/L; Blood Urea Nitrogen 15 mg/dL (7-17); Calcium 9.4 mg/dL (8.4-10.2); Carbon Dioxide 26 mmol/L (22-30); Chloride 104 mmol/L (98-107); Glucose 104 mg/dL (74-99); Lipase 157 U/L (23-300); Magnesium 2.3 mg/dL (1.6-2.3); Non-African American GFR(CKD) 84 (>60 ml/min/1.73 sqM); Sodium 138 mmol/L (137-145); Total Bilirubin 0.9 mg/dL (0.2-1.3)
--- NOTE | 2021-07-09 11:46 | XR ---
EXAMINATION TYPE: XR chest 2V DATE OF EXAM: 07/09/2021 COMPARISON: Chest x-ray 06/18/2021, CT 10/21/2019 HISTORY: Chest pain TECHNIQUE: Frontal and lateral views of the chest are obtained. FINDINGS: Patchy bandlike areas of increased attenuation present at the lung bases. There is some bl unting the right costophrenic angle possibly due to eventration of right hemidiaphragm, right hemidia phragm is elevated, there is some hyperinflation consistent with underlying COPD. Cardiac mediastinal silhouette is within normal limits. There is spinal curvature, aorta is dense. No evident pneumothor ax or pleural effusion. IMPRESSION: Suspect basilar scarring or atelectasis, follow-up suggested
[2021-07-09 12:28] LABS: INR 0.9 (<1.2); Partial Thromboplastin Time 27.1 sec (22.0-30.0); Prothrombin Time 10.2 sec (9.0-12.0)
[2021-07-09 12:41] LABS: Basophils % (A) 0 %; Eosinophils # (A) 0.2 k/uL (0-0.7); Eosinophils % (A) 4 %; HCT 44.7 % (34.0-46.0); HGB 15.1 gm/dL (11.4-16.0); Lymphocytes # (A) 0.8 k/uL (1.0-4.8); Lymphocytes % (A) 17 %; MCH 29.3 pg (25.0-35.0); MCHC 33.7 g/dL (31.0-37.0); MCV 86.9 fL (80.0-100.0); Mean Platelet Volume 8.1; Monocytes # (A) 0.4 k/uL (0-1.0); Monocytes % (A) 8 %; Neutrophils # (A) 3.4 k/uL (1.3-7.7); Neutrophils % (A) 69 %; Platelet Count 226 k/uL (150-450); RBC 5.15 m/uL (3.80-5.40); RDW 13.5 % (11.5-15.5); WBC 4.9 k/uL (3.8-10.6)
[2021-07-09] MEDS ORDERED: ASPIRIN 325 MG TAB PO STA (15:00)
[2021-07-09] MEDS ORDERED: ACETAMINOPHEN TAB 325 MG TAB PO PRN (15:02)
[2021-07-09] MEDS ORDERED: MORPHINE SULFATE 4 MG/ML SYRINGE IV PRN (15:02)
[2021-07-09] MEDS ORDERED: NALOXONE 0.4 MG/ML 1 ML VIAL IV PRN (15:02)
[2021-07-09] MEDS ORDERED: ALPRAZolam 1 MG TAB PO PRN (17:02)
[2021-07-09] MEDS: CHOLECALCIFEROL 25 MCG (1000 IU) TABLET PO SCH (17:54)
[2021-07-09 20:03] LABS: Glucose,Whole Blood 172 mg/dL (75-99)
[2021-07-10] MEDS ORDERED: PANTOPRAZOLE 40 MG TABLET PO SCH (07:30)
[2021-07-10 07:49] LABS: Glucose,Whole Blood 88 mg/dL (75-99)
[2021-07-10 08:33] VITALS: BP 119/67; PULSE 94; RESP 18; TEMP 97.7
[2021-07-10] MEDS ORDERED: DILTIAZEM CD 120 MG CAP.ER.24H PO SCH (09:00)
[2021-07-10] MEDS ORDERED: METOPROLOL TARTRATE 25 MG TAB PO SCH (09:45)
--- NOTE | 2021-07-10 10:06 | P.CRDCN ---
History of Present Illness History of present illness: HISTORY OF PRESENTING ILLNESS This is a pleasant 81-year-old female past medical history significant for hypertension and dyslipidemia. She follows in the office with Dr. Nas rice. We have been asked to see in consultation for chest pain. She describes having sharp pain in the mid-sternal region that somewhat radiated to the left precordial region. Occurred when she woke up yesterday morning. Lasted only a few seconds. No radiation. She has had no reoccurrence. She had no associated symptoms of shortness of breath, dizziness or palpitations. EKG on arrival revealed sinus rhythm with no acute ST or T wave abnormalities noted. Chest x- ray revealed basilar scarring with no acute cardiopulmonary process. Telemetry tracings have been unremarkable. Laboratory data reviewed, cardiac enzymes negative 3. Current daily cardiac medications include diltiazem 120 mg daily. She had a nuclear stress test in 2019 that was negative for stress-induced ischemia. 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 Most recent echocardiogram in 2019 revealed preserved LV systolic function with ejection fraction 60-65%. REVIEW OF SYSTEMS At the time of my exam: CONSTITUTIONAL: Denies fever or chills. CARDIOVASCULAR: Denies chest pain, shortness of breath, orthopnea, PND or palpitations. RESPIRATORY: Denies cough. GASTROINTESTINAL: Denies abdominal pain, diarrhea, constipation, nausea or vomiting. MUSCULOSKELETAL: Denies myalgias. NEUROLOGIC: Denies numbness, tingling, headache or weakness. ENDOCRINE: Denies fatigue, weight change, polydipsia or polyurina. GENITOURINARY: Denies burning, hematuria or urgency with micturation. HEMATOLOGIC: Denies history of anemia or bleeding. PHYSICAL EXAMINATION Blood pressure 115/69 heart rate 75 afebrile and maintaining oxygen saturation on room air. CONSTITUTIONAL: No apparent distress. HEENT: Head is normocephalic. Pupils are equal, round. Sclerae anicteric. Mucous membranes of the mouth are moist. No JVD. No carotid bruit. CHEST EXAMINATION: Lungs are clear to auscultation. No chest wall tenderness is noted on palpation or with deep breathing. HEART EXAMINATION: Regular rate and rhythm. S1, S2 heard. No murmurs, gallops or rub. ABDOMEN: Soft, nontender. EXTREMITIES: 2+ peripheral pulses, no lower extremity edema and no calf tenderness. NEUROLOGIC EXAMINATION: Patient is awake, alert and oriented x3. ASSESSMENT Chest pain, atypical Hypertension Dyslipidemia PLAN Add lopressor 25 mg BID to her regimen. Increase activity and ambulation. If she remains asymptomatic she can be discharged home to follow up with Dr. Vasquez in the office. Thank you kindly for this consultation. Nurse Practitioner note has been reviewed, I agree with a documented findings and plan of care. Patient was seen and examined. Past Medical History Past Medical History: Chest Pain / Angina, GERD/Reflux, Hypertension, Osteoarthritis (OA) Additional Past Medical History / Comment(s): Hx Gastritis, irregular heart beat ,Hx UTIs, pancereatitis after ERCP, constipation, blood in stool. History of Any Multi-Drug Resistant Organisms: None Reported Past Surgical History: Adenoidectomy, Cholecystectomy, Heart Catheterization, Hysterectomy, Orthopedic Surgery, Tonsillectomy Additional Past Surgical History / Comment(s): Mini lap with L salpingo- oophorectomy, bilateral cataract removals/lens implants, A&P repair, R ankle ORIF, EGD Past Anesthesia/Blood Transfusion Reactions: No Reported Reaction Additional Past Anesthesia/Blood Transfusion Reaction / Comment(s): . Past Psychological History: Anxiety Smoking Status: Never smoker Past Alcohol Use History: None Reported Past Drug Use History: None Reported - Past Family History Father Family Medical History: Myocardial Infarction ([place]) Additional Family Medical History / Comment(s): Bad hip, enlarged heart Mother Family Medical History: COPD, Pneumonia Additional Family Medical History / Comment(s): PNA Medications and Allergies Home Medications Medication Instructions Recorded Confirmed Type ALPRAZolam [Xanax] 1 mg PO BID PRN 09/06/14 07/09/21 History Diltiazem HCl [Cartia Xt] 120 mg PO DAILY 03/15/20 07/09/21 History Amoxicillin 500 mg PO TID 07/09/21 07/09/21 History Cholecalciferol [Vitamin D3 (25 50 mcg PO DAILY 07/09/21 07/09/21 History Mcg = 1000 Iu)] Pantoprazole [Protonix] 40 mg PO DAILY 07/09/21 07/09/21 History Allergies Allergy/AdvReac Type Severity Reaction Status Date / Time clindamycin HCl Allergy Intermediate Rash/Hives Verified 07/09/21 12:16 [From Cleocin] clindamycin palmitate HCl Allergy Intermediate Rash/Hives Verified 07/09/21 12:16 [From Cleocin] clindamycin phosphate Allergy Intermediate Rash/Hives Verified 07/09/21 12:16 [From Cleocin] Sulfa (Sulfonamide Allergy Intermediate Rash/Hives Verified 07/09/21 12:16 Antibiotics) cefuroxime [From Ceftin] Allergy Unknown Unknown-OBTAINED Verified 07/09/21 12:[address] [facility] OFF[facility]. clarithromycin [From Biaxin] Allergy Unknown Unknown-OBTAINED Verified 07/09/21 12:[address] [facility] OFF[facility] ezetimibe [From Zetia] Allergy Unknown Unknown-OBTAINED Verified 07/09/21 12:[address] [facility] OFF[facility] ofloxacin [From Floxin] Allergy Unknown Unknown-OBTAINED Verified 07/09/21 12:[address] [facility] Hmfinjx-Fpj-Qtq Reductase Allergy Unknown Unknown-OBTAINED Verified 07/09/21 12:[address] [facility] OFFICE sulfamethoxazole Allergy Unknown Unknown Verified 07/09/21 12:16 [From Bactrim] trimethoprim [From Bactrim] Allergy Unknown Unknown Verified 07/09/21 12:16 Physical Exam Vitals: Vital Signs Temp Pulse Pulse Pulse Resp BP BP 07/10/21 01:45 98.0 F 75 15 115/69 07/09/21 20:00 84 16 07/09/21 19:49 98.3 F 84 16 127/65 07/09/21 15:23 98.1 F 79 16 147/76 07/09/21 11:23 76 07/09/21 11:03 98.8 F 85 18 121/98 Pulse Ox 07/10/21 01:45 94 L 07/09/21 20:00 07/09/21 19:49 93 L 07/09/21 15:23 97 07/09/21 11:23 07/09/21 11:03 96 Intake and Output 07/09/21 07/10/21 07/10/21 22:59 06:59 14:59 Other: # Voids 2 2 Weight 59.874 kg Results 07/09/21 11:16 07/09/21 11:16 Cardiac Enzymes 07/09/21 07/09/21 07/09/21 Range/Units 11:16 11:16 14:17 AST 61 H (14-36) U/L Troponin I <0.012 0.020 (0.000-0.034) ng/mL 07/09/21 07/09/21 Range/Units 17:56 20:55 AST (14-36) U/L Troponin I <0.012 <0.012 (0.000-0.034) ng/mL Coagulation 07/09/21 Range/Units 11:16 PT 10.2 (9.0-12.0) sec APTT 27.1 (22.0-30.0) sec CBC 07/09/21 Range/Units 11:16 WBC 4.9 (3.8-10.6) k/uL RBC 5.15 (3.80-5.40) m/uL Hgb 15.1 (11.4-16.0) gm/dL Hct 44.7 (34.0-46.0) % Plt Count 226 (150-450) k/uL Comprehensive Metabolic Panel 07/09/21 Range/Units 11:16 Sodium 138 (137-145) mmol/L Potassium 4.0 (3.5-5.1) mmol/L Chloride 104 (98-107) mmol/L Carbon Dioxide 26 (22-30) mmol/L BUN 15 (7-17) mg/dL Creatinine 0.68 (0.52-1.04) mg/dL Glucose 104 H (74-99) mg/dL Calcium 9.4 (8.4-10.2) mg/dL AST 61 H (14-36) U/L ALT 78 H (4-34) U/L Alkaline Phosphatase 98 (38-126) U/L Total Protein 7.0 (6.3-8.2) g/dL Albumin 4.1 (3.5-5.0) g/dL Current Medications Generic Name Dose Route Start Last Admin Trade Name Freq PRN Reason Stop Dose Admin Acetaminophen 650 mg 07/09/21 15:02 Acetaminophen Tab 325 Mg Tab PO Q6HR PRN Mild Pain or Fever > 100.5 Alprazolam 1 mg 07/09/21 17:02 07/09/21 21:16 Alprazolam 1 Mg Tab PO 1 mg BID PRN Administration Anxiety Cholecalciferol 50 mcg 07/09/21 17:15 07/09/21 17:54 Cholecalciferol 25 Mcg (1000 Iu) Tablet PO 50 mcg DAILY YAMILET Administration Diltiazem HCl 120 mg 07/10/21 09:00 Diltiazem Cd 120 Mg Cap.Er.24h PO DAILY YAMILET Morphine Sulfate 4 mg 07/09/21 15:02 Morphine Sulfate 4 Mg/Ml Syringe IV Q4HR PRN Severe Pain Naloxone HCl 0.2 mg 07/09/21 15:02 Naloxone 0.4 Mg/Ml 1 Ml Vial IV Q2M PRN Opioid Reversal Pantoprazole Sodium 40 mg 07/10/21 07:30 Pantoprazole 40 Mg Tablet PO DAILY@0730 YAMILET Intake and Output 07/09/21 07/10/21 07/10/21 22:59 06:59 14:59 Other: # Voids 2 2 Weight 59.874 kg 07/09/21 11:16 07/09/21 11:16
[2021-07-10] MEDS: CHOLECALCIFEROL 25 MCG (1000 IU) TABLET PO SCH (10:12)
--- NOTE | 2021-07-10 13:24 | P.HPIM ---
History of Present Illness H&P Date: 07/09/21 Chief Complaint: Chest pain Velvet Dimas, is a year old female who presented to [facility] emergency room with a chief complaint of chest pain She was evaluated in the emergency room vital examination on presentation revealed a temperature of 98.8 pulse 85 respiration 18 blood pressure 121/98 pulse ox 96% on room air Laboratory data revealed a white blood count of 4.9 hemoglobin 15.1 platelet count 226 BUN 15 creatinine 0.68 Testing in the emergency room revealed normal chest x-ray and normal EKG. Patient was admitted to medical floor for further evaluation and treatment, cardiology consultation was requested Past medical history is significant for hypertension and gastroesophageal reflux disease, patient had previous episodes of chest pain, she had history of stress test and cardiac catheterization about 5 years ago, no abnormality was found no angioplasty or stent placement was done. Past Medical History Past Medical History: Chest Pain / Angina, GERD/Reflux, Hypertension, Osteoarthritis (OA) Additional Past Medical History / Comment(s): Hx Gastritis, irregular heart beat ,Hx UTIs, pancereatitis after ERCP, constipation, blood in stool. History of Any Multi-Drug Resistant Organisms: None Reported Past Surgical History: Adenoidectomy, Cholecystectomy, Heart Catheterization, Hysterectomy, Orthopedic Surgery, Tonsillectomy Additional Past Surgical History / Comment(s): Mini lap with L salpingo- oophorectomy, bilateral cataract removals/lens implants, A&P repair, R ankle ORIF, EGD Past Anesthesia/Blood Transfusion Reactions: No Reported Reaction Additional Past Anesthesia/Blood Transfusion Reaction / Comment(s): . Past Psychological History: Anxiety Smoking Status: Never smoker Past Alcohol Use History: None Reported Past Drug Use History: None Reported - Past Family History Father Family Medical History: Myocardial Infarction ([place]) Additional Family Medical History / Comment(s): Bad hip, enlarged heart Mother Family Medical History: COPD, Pneumonia Additional Family Medical History / Comment(s): PNA Medications and Allergies Home Medications Medication Instructions Recorded Confirmed Type ALPRAZolam [Xanax] 1 mg PO BID PRN 09/06/14 07/09/21 History Diltiazem HCl [Cartia Xt] 120 mg PO DAILY 03/15/20 07/09/21 History Amoxicillin 500 mg PO TID 07/09/21 07/09/21 History Cholecalciferol [Vitamin D3 (25 50 mcg PO DAILY 07/09/21 07/09/21 History Mcg = 1000 Iu)] Pantoprazole [Protonix] 40 mg PO DAILY 07/09/21 07/09/21 History Allergies Allergy/AdvReac Type Severity Reaction Status Date / Time clindamycin HCl Allergy Intermediate Rash/Hives Verified 07/09/21 12:16 [From Cleocin] clindamycin palmitate HCl Allergy Intermediate Rash/Hives Verified 07/09/21 12:16 [From Cleocin] clindamycin phosphate Allergy Intermediate Rash/Hives Verified 07/09/21 12:16 [From Cleocin] Sulfa (Sulfonamide Allergy Intermediate Rash/Hives Verified 07/09/21 12:16 Antibiotics) cefuroxime [From Ceftin] Allergy Unknown Unknown-OBTAINED Verified 07/09/21 12:[address] [facility] OFFICE. clarithromycin [From Biaxin] Allergy Unknown Unknown-OBTAINED Verified 07/09/21 12:[address] [facility] OFFICE ezetimibe [From Zetia] Allergy Unknown Unknown-OBTAINED Verified 07/09/21 12:[address] [facility] OFFICE ofloxacin [From Floxin] Allergy Unknown Unknown-OBTAINED Verified 07/09/21 12:[address] [facility] OFFICE Mkkvqny-Ufg-Asa Reductase Allergy Unknown Unknown-OBTAINED Verified 07/09/21 12:[address] [facility] OFFICE sulfamethoxazole Allergy Unknown Unknown Verified 07/09/21 12:16 [From Bactrim] trimethoprim [From Bactrim] Allergy Unknown Unknown Verified 07/09/21 12:16 Physical Exam Vitals: Vital Signs Temp Pulse Pulse Resp BP Pulse Ox 07/09/21 11:23 76 07/09/21 11:03 98.8 F 85 18 121/98 96 Intake and Output 07/09/21 07/09/21 07/09/21 06:59 14:59 22:59 Other: Weight 59.874 kg In general patient is alert and oriented x 3 in no distress HEENT head normocephalic and atraumatic Neck is supple no JVD no goiter no lymphadenopathy no carotid bruit Chest examination is clear to auscultation no crackles no wheezing Cardiac exam reveals regular heart sounds S1 and S2 no gallops no murmurs Abdomen is soft nontender no organomegaly with normal bowel sounds Extremity exam reveals no edema no cyanosis or clubbing Neurological examination reveals no gross focal deficits Results CBC & Chem 7: 07/09/21 11:16 07/09/21 11:16 Labs: Abnormal Lab Results - Last 24 Hours (Table) 07/09/21 07/09/21 Range/Units 11:16 11:16 Lymphocytes # 0.8 L (1.0-4.8) k/uL Glucose 104 H (74-99) mg/dL AST 61 H (14-36) U/L ALT 78 H (4-34) U/L Assessment and Plan Plan: Episode of chest pain History of hypertension Underlying history of GERD Underlying history of osteoarthritis Patient admitted to telemtry floor serial cardiac enzymes were ordered cardiology consultation was requested Will follow closely
--- NOTE | 2021-07-10 13:36 | P.DS ---
Providers Date of admission: 07/09/21 15:03 Expected date of discharge: 07/10/21 Attending physician: Stalin Duong Consults: 07/09/21 15:04 Consult Physician Routine Consulting Provider: Cinthia Vasquez Consult Reason/Comments: CP Do you want consulting provider notified?: Yes Primary care physician: Stalin Ad [facility] Course: Diagnoses on discharge: Episode of chest pain History of hypertension Underlying history of GERD Underlying history of osteoarthritis Hospital course: Velvet Dimas, is a year old female who presented to [facility] emergency room with a chief complaint of chest pain She was evaluated in the emergency room vital examination on presentation revealed a temperature of 98.8 pulse 85 respiration 18 blood pressure 121/98 pulse ox 96% on room air Laboratory data revealed a white blood count of 4.9 hemoglobin 15.1 platelet count 226 BUN 15 creatinine 0.68 Testing in the emergency room revealed normal chest x-ray and normal EKG. Patient was admitted to medical floor for further evaluation and treatment, cardiology consultation was requested Past medical history is significant for hypertension and gastroesophageal reflux disease, patient had previous episodes of chest pain, she had history of stress test and cardiac catheterization about 5 years ago, no abnormality was found no angioplasty or stent placement was done. On 07/10/2021 patient was seen and examined on the telemetry floor she is alert and oriented 3 in no apparent distress she had no new episodes of chest pain, EKG and cardiac enzymes are within normal limits, she was evaluated by cardiology metoprolol tartrate 25 mg twice daily was added to her medication regimen she was cleared to be discharged home today. Patient was discharged home. She will be followed in our office within 1 week. Patient Condition at Discharge: Stable Plan - Discharge Summary Discharge Rx Participant: No New Discharge Prescriptions: New Metoprolol Tartrate [Lopressor] 25 mg PO BID tab Continue ALPRAZolam [Xanax] 1 mg PO BID PRN PRN Reason: Anxiety Diltiazem HCl [Cartia Xt] 120 mg PO DAILY Pantoprazole [Protonix] 40 mg PO DAILY Amoxicillin 500 mg PO TID Cholecalciferol [Vitamin D3 (25 Mcg = 1000 Iu)] 50 mcg PO DAILY Discharge Medication List ALPRAZolam [Xanax] 1 mg PO BID PRN 09/06/14 [History] Diltiazem HCl [Cartia Xt] 120 mg PO DAILY 03/15/20 [History] Amoxicillin 500 mg PO TID 07/09/21 [History] Cholecalciferol [Vitamin D3 (25 Mcg = 1000 Iu)] 50 mcg PO DAILY 07/09/21 [History] Pantoprazole [Protonix] 40 mg PO DAILY 07/09/21 [History] Metoprolol Tartrate [Lopressor] 25 mg PO BID tab 07/10/21 [Rx] Follow up Appointment(s)/Referral(s): Stalin Duong MD [Primary Care Provider] - 1-2 days Cinthia Vasquez MD [STAFF PHYSICIAN] - 2 Weeks Activity/Diet/Wound Care/Special Instructions: Follow up with cardiology for a stress test as an outpatient.
[2021-07-10] MEDS ORDERED: ANIDULAFUNGIN 100 MG in SODIUM CHLORIDE 0.9% 100 ML IVPB SCH (13:45)
== END 2021-07-10 14:16 | disposition home or self-care (01) ==
LOC: EC 10:54 → 6NMEDSUR 15:03
PROVIDERS: ADMIT Internal Medicine; ATTEND Internal Medicine
DX: R07.89 Other chest pain (principal); I10 Essential (primary) hypertension; K21.9 Gastro-esophageal reflux disease without esophagitis; M19.90 Unspecified osteoarthritis, unspecified site; F41.9 Anxiety disorder, unspecified; I49.9 Cardiac arrhythmia, unspecified; E78.5 Hyperlipidemia, unspecified; K59.00 Constipation, unspecified; Z20.822 Contact with and (suspected) exposure to COVID-19; Z79.899 Other long term (current) drug therapy; Z87.440 Personal history of urinary (tract) infections; Z87.19 Personal history of other diseases of the digestive system; Z88.1 Allergy status to other antibiotic agents; Z88.2 Allergy status to sulfonamides; Z88.8 Allergy status to other drugs, medicaments and biological substances; Z90.49 Acquired absence of other specified parts of digestive tract; Z90.710 Acquired absence of both cervix and uterus; Z96.1 Presence of intraocular lens; Z82.49 Family history of ischemic heart disease and other diseases of the circulatory system; Z82.5 Family history of asthma and other chronic lower respiratory diseases; Z82.69 Family history of other diseases of the musculoskeletal system and connective tissue
CPT/HCPCS: 99285; 36415; 93005; 80053; 83690; 83735; 84484; 85025; 85610; 85730; 87635; 71046; G0378 ×2

== ENCOUNTER 2022-02-06 19:09 | Emergency (ER) | payer MEDICARE, BC ==
[2022-02-06 19:33] VITALS: TEMP 97.8
--- NOTE | 2022-02-06 19:35 | ED ---
General Adult HPI - General Chief complaint: Urogenital Stated complaint: Hypertention Time Seen by Provider: 02/06/22 19:31 Source: patient, RN notes reviewed Mode of arrival: EMS Limitations: no limitations - History of Present Illness Initial comments: This is a 81-year-old female presents to emergency department complaining of hypertension. Patient states her blood pressure has been running higher than usual. Patient states she initially took her blood pressure and it was 140 systolic. It then climbed up to 170 the second time she checked. No shortness of breath or chest pain. No edema. States she might be urinating a bit more frequently. However has no fever or chills. No headache, no fever or chills, no changes in vision or hearing, no sore throat or difficulty with speech, no neck pain, no chest pain or shortness of breath, no abdominal pain, no nausea or vomiting, no changes in urination or bowel movements, no numbness or tingling, no extremity pain, no skin rashes or lesions. Patient is essentially asymmetric at this time. Patient states took a Xanax because she was upset that her blood pressure was high. - Related Data Home Medications Medication Instructions Recorded Confirmed ALPRAZolam [Xanax] 1 mg PO BID PRN 09/06/14 07/09/21 dilTIAZem HCL [Cartia Xt] 120 mg PO DAILY 03/15/20 07/09/21 Amoxicillin 500 mg PO TID 07/09/21 07/09/21 Cholecalciferol [Vitamin D3 (25 50 mcg PO DAILY 07/09/21 07/09/21 Mcg = 1000 Iu)] Pantoprazole [Protonix] 40 mg PO DAILY 07/09/21 07/09/21 Previous Rx's Medication Instructions Recorded Metoprolol Tartrate [Lopressor] 25 mg PO BID tab 07/10/21 Nitrofurantoin Monohyd/M-Cryst 100 mg PO Q12HR #14 cap 02/06/22 [Macrobid] Allergies Allergy/AdvReac Type Severity Reaction Status Date / Time clindamycin HCl Allergy Intermediate Rash/Hives Verified 02/06/22 19:33 [From Cleocin] clindamycin palmitate HCl Allergy Intermediate Rash/Hives Verified 02/06/22 19:33 [From Cleocin] clindamycin phosphate Allergy Intermediate Rash/Hives Verified 02/06/22 19:33 [From Cleocin] Sulfa (Sulfonamide Allergy Intermediate Rash/Hives Verified 02/06/22 19:33 Antibiotics) cefuroxime [From Ceftin] Allergy Unknown Unknown-OBTAINED Verified 02/06/22 19:[address] [facility] OFFICE. clarithromycin [From Biaxin] Allergy Unknown Unknown-OBTAINED Verified 02/06/22 19:[address] [facility] OFFICE ezetimibe [From Zetia] Allergy Unknown Unknown-OBTAINED Verified 02/06/22 19:[address] HAD[facility] OFFICE ofloxacin [From Floxin] Allergy Unknown Unknown-OBTAINED Verified 02/06/22 19:[address] HADLEY OFFICE Orqmzts-WSX-WjP Reductase Allergy Unknown Unknown-OBTAINED Verified 02/06/22 19:33 Inhibitor FROM [Plqamnq-Buc-Hdi Reductase OJMAR Inhibitor] OFFICE sulfamethoxazole Allergy Unknown Unknown Verified 02/06/22 19:33 [From Bactrim] trimethoprim [From Bactrim] Allergy Unknown Unknown Verified 02/06/22 19:33 Review of Systems ROS Statement: Those systems with pertinent positive or pertinent negative responses have been documented in the HPI. ROS Other: All systems not noted in ROS Statement are negative. Past Medical History Past Medical History: Chest Pain / Angina, GERD/Reflux, Hypertension, O steoarthritis (OA) Additional Past Medical History / Comment(s): Hx Gastritis, irregular heart beat ,Hx UTIs, pancereatitis after ERCP, constipation, blood in stool. History of Any Multi-Drug Resistant Organisms: None Reported Past Surgical History: Adenoidectomy, Cholecystectomy, Heart Catheterization, Hysterectomy, Orthopedic Surgery, Tonsillectomy Additional Past Surgical History / Comment(s): Mini lap with L salpingo- oophorectomy, bilateral cataract removals/lens implants, A&P repair, R ankle ORIF, EGD Past Anesthesia/Blood Transfusion Reactions: No Reported Reaction Additional Past Anesthesia/Blood Transfusion Reaction / Comment(s): . Past Psychological History: Anxiety Smoking Status: Never smoker Past Alcohol Use History: None Reported Past Drug Use History: None Reported - Past Family History Father Family Medical History: Myocardial Infarction (NM) Additional Family Medical History / Comment(s): Bad hip, enlarged heart Mother Family Medical History: COPD, Pneumonia Additional Family Medical History / Comment(s): PNA General Exam - General Exam Comments Initial Comments: Somewhat deconditioned appearing 81-year-old female in no distress. Limitations: no limitations General appearance: alert, in no apparent distress Head exam: Present: atraumatic, normocephalic, normal inspection Eye exam: Present: normal appearance, PERRL, EOMI. Absent: scleral icterus, conjunctival injection, periorbital swelling ENT exam: Present: normal exam, mucous membranes moist Neck exam: Present: normal inspection. Absent: tenderness, meningismus, lymphadenopathy Respiratory exam: Present: normal lung sounds bilaterally. Absent: respiratory distress, wheezes, rales, rhonchi, stridor Cardiovascular Exam: Present: regular rate, normal rhythm, normal heart sounds. Absent: systolic murmur, diastolic murmur, rubs, gallop, clicks GI/Abdominal exam: Present: soft, normal bowel sounds. Absent: distended, te nderness, guarding, rebound, rigid Extremities exam: Present: normal inspection, full ROM, normal capillary refill. Absent: tenderness, pedal edema, joint swelling, calf tenderness Back exam: Present: normal inspection Neurological exam: Present: alert, oriented X3, CN II-XII intact Psychiatric exam: Present: normal affect, normal mood Skin exam: Present: warm, dry, intact, normal color. Absent: rash Course Vital Signs 02/06/22 19:29 Temperature 97.8 F Pulse Rate 67 Respiratory 18 Rate Blood Pressure 121/67 O2 Sat by Pulse 94 L Oximetry - Reevaluation(s) Reevaluation #1: 02/06/22 22:05 Medical record is reviewed Symptoms are improved here in the emergency department Patient is informed of results and questions answered Patient in no distress EKG Findings - EKG Comments: EKG Findings:: EKG done in 195 and read by the ED attending physician reveals sinus rhythm with rate of 68. Normal intervals. Normal axis. No acute ST or T-wave changes. No acute respiratory pathology. Medical Decision Making - Medical Decision Making Patient's workup is essentially negative. EKG was nondiagnostic. Patient's laboratory investigations were essentially normal aside from the urinalysis which did show evidence of significant number of white cells and leukocyte esterase. Given the patient's symptomology going to treat until urine cultures obtained. We'll have patient follow-up with her regular physician. All questions answered. Patient's blood pressure was controlled here. For have the patient touch base with her regular doctor as far as blood pressure control and medication dosing. Patient was told to return to the ER for any signs or symptoms worsen. Told to return immediately if any other problems arise. All questions answered. Treatment plan discussed. Patient in agreement Every effort has been made to ensure accuracy of this dictation. However, due to the limitations of electronic medical records and dictation devices, errors in charting still occur. Supervising physician, Dr. Cobian - Lab Data Result diagrams: 02/06/22 19:42 02/06/22 19:42 Lab Results 02/06/22 02/06/22 02/06/22 Range/Units 19:42 19:42 19:42 WBC 6.7 (3.8-10.6) k/uL RBC 5.01 (3.80-5.40) m/uL Hgb 14.7 (11.4-16.0) gm/dL Hct 45.1 (34.0-46.0) % MCV 90.1 (80.0-100.0) fL MCH 29.3 (25.0-35.0) pg MCHC 32.6 (31.0-37.0) g/dL RDW 13.0 (11.5-15.5) % Plt Count 220 (150-450) k/uL MPV 7.9 Neutrophils % 70 % Lymphocytes % 19 % Monocytes % 5 % Eosinophils % 3 % Basophils % 1 % Neutrophils # 4.7 (1.3-7.7) k/uL Lymphocytes # 1.3 (1.0-4.8) k/uL Monocytes # 0.4 (0-1.0) k/uL Eosinophils # 0.2 (0-0.7) k/uL Basophils # 0.0 (0-0.2) k/uL Sodium 136 L (137-145) mmol/L Potassium 3.9 (3.5-5.1) mmol/L Chloride 102 (98-107) mmol/L Carbon Dioxide 29 (22-30) mmol/L Anion Gap 5 mmol/L BUN 16 (7-17) mg/dL Creatinine 0.67 (0.52-1.04) mg/dL Est GFR (CKD-EPI)AfAm >90 (>60 ml/min/1.73 sqM) Est GFR (CKD-EPI)NonAf 84 (>60 ml/min/1.73 sqM) Glucose 91 (74-99) mg/dL Calcium 9.3 (8.4-10.2) mg/dL Magnesium 2.3 (1.6-2.3) mg/dL Troponin I <0.012 (0.000-0.034) ng/mL Urine Color Urine Appearance (Clear) Urine pH (5.0-8.0) Ur Specific [place] (1.001-1.035) Urine Protein (Negative) Urine Glucose (UA) (Negative) Urine Ketones (Negative) Urine Blood (Negative) Urine Nitrite (Negative) Urine Bilirubin (Negative) Urine Urobilinogen (<2.0) mg/dL Ur Leukocyte Esterase (Negative) Urine RBC (0-5) /hpf Urine WBC (0-5) /hpf Ur Squamous Epith Cells (0-4) /hpf Urine Bacteria (None) /hpf Urine Mucus (None) /hpf 02/06/22 Range/Units 19:42 WBC (3.8-10.6) k/uL RBC (3.80-5.40) m/uL Hgb (11.4-16.0) gm/dL Hct (34.0-46.0) % MCV (80.0-100.0) fL MCH (25.0-35.0) pg MCHC (31.0-37.0) g/dL RDW (11.5-15.5) % Plt Count (150-450) k/uL MPV Neutrophils % % Lymphocytes % % Monocytes % % Eosinophils % % Basophils % % Neutrophils # (1.3-7.7) k/uL Lymphocytes # (1.0-4.8) k/uL Monocytes # (0-1.0) k/uL Eosinophils # (0-0.7) k/uL Basophils # (0-0.2) k/uL Sodium (137-145) mmol/L Potassium (3.5-5.1) mmol/L Chloride (98-107) mmol/L Carbon Dioxide (22-30) mmol/L Anion Gap mmol/L BUN (7-17) mg/dL Creatinine (0.52-1.04) mg/dL Est GFR (CKD-EPI)AfAm (>60 ml/min/1.73 sqM) Est GFR (CKD-EPI)NonAf (>60 ml/min/1.73 sqM) Glucose (74-99) mg/dL Calcium (8.4-10.2) mg/dL Magnesium (1.6-2.3) mg/dL Troponin I (0.000-0.034) ng/mL Urine Color Colorless Urine Appearance Clear (Clear) Urine pH 6.5 (5.0-8.0) Ur Specific [place] 1.006 (1.001-1.035) Urine Protein Negative (Negative) Urine Glucose (UA) Negative (Negative) Urine Ketones Negative (Negative) Urine Blood Negative (Negative) Urine Nitrite Negative (Negative) Urine Bilirubin Negative (Negative) Urine Urobilinogen <2.0 (<2.0) mg/dL Ur Leukocyte Esterase Large H (Negative) Urine RBC 1 (0-5) /hpf Urine WBC 35 H (0-5) /hpf Ur Squamous Epith Cells <1 (0-4) /hpf Urine Bacteria Rare H (None) /hpf Urine Mucus Rare H (None) /hpf - Radiology Data Radiology results: report reviewed (No evidence of acute changes), image reviewed Disposition Clinical Impression: Uncontrolled hypertension, Acute cystitis without hematuria Disposition: HOME SELF-CARE Condition: Good Instructions (If sedation given, give patient instructions): Urinary Tract Infection in Women (ED), Hypertension (ED) Additional Instructions: Drink plenty of fluids, take the antibiotic as directed. Call and schedule a follow-up appointment with your regular physician. Follow-up with your regular physician as directed. Return to the ER immediately if any symptoms worsen, new symptoms arise, or any other problems develop. Prescriptions: Nitrofurantoin Monohyd/M-Cryst [Macrobid] 100 mg PO Q12HR #14 cap Is patient prescribed a controlled substance at d/c from ED?: No Referrals: Stalin Duong MD [Primary Care Provider] - 02/11/22 Time of Disposition: 22:07
[2022-02-06 20:15] LABS: Basophils % (A) 1 %; Eosinophils # (A) 0.2 k/uL (0-0.7); Eosinophils % (A) 3 %; HCT 45.1 % (34.0-46.0); HGB 14.7 gm/dL (11.4-16.0); Lymphocytes # (A) 1.3 k/uL (1.0-4.8); Lymphocytes % (A) 19 %; MCH 29.3 pg (25.0-35.0); MCHC 32.6 g/dL (31.0-37.0); MCV 90.1 fL (80.0-100.0); Mean Platelet Volume 7.9; Monocytes # (A) 0.4 k/uL (0-1.0); Monocytes % (A) 5 %; Neutrophils # (A) 4.7 k/uL (1.3-7.7); Neutrophils % (A) 70 %; Platelet Count 220 k/uL (150-450); RBC 5.01 m/uL (3.80-5.40); WBC 6.7 k/uL (3.8-10.6)
[2022-02-06 20:18] LABS: African American GFR (CKD) >90 (>60 ml/min/1.73 sqM); Anion Gap 5 mmol/L; Blood Urea Nitrogen 16 mg/dL (7-17); Calcium 9.3 mg/dL (8.4-10.2); Carbon Dioxide 29 mmol/L (22-30); Chloride 102 mmol/L (98-107); Glucose 91 mg/dL (74-99); Magnesium 2.3 mg/dL (1.6-2.3); Non-African American GFR(CKD) 84 (>60 ml/min/1.73 sqM); Potassium 3.9 mmol/L (3.5-5.1); Sodium 136 mmol/L (137-145)
[2022-02-06 20:43] LABS: Appearance,Urine Clear (Clear); Bacteria,Urine Rare /hpf; Bilirubin,Urine Negative (Negative); Blood,Urine Negative (Negative); Color,Urine Colorless; Glucose,Urine (UA) Negative (Negative); Ketones,Urine Negative (Negative); Leukocyte Esterase,Urine Large (Negative); Mucus,Urine Rare /hpf; Nitrite,Urine Negative (Negative); PH, Urine 6.5 (5.0-8.0); Protein,Urine Negative (Negative); RBC,Urine 1 /hpf (0-5); Specific Gravity,Urine 1.006 (1.001-1.035); Squamous Epithelial Cell,Urine <1 /hpf (0-4); Urobilinogen,Urine <2.0 mg/dL (<2.0); WBC,Urine 35 /hpf (0-5)
--- NOTE | 2022-02-06 21:49 | XR ---
EXAMINATION TYPE: XR chest 2V DATE OF EXAM: 02/06/2022 COMPARISON: 07/09/2021 HISTORY: Urinary tract infection TECHNIQUE: 2 views FINDINGS: Heart is normal. There is mild subsegmental atelectasis at the lung bases. No pleural effus ion. There are no hilar masses. No heart failure. IMPRESSION: Mild subsegmental atelectasis and scarring at the lung bases without change. Normal heart .
[2022-02-06] MEDS ORDERED: NITROFURANTOIN MONOHYD/M-CRYST 100 MG CAP PO STA (22:04)
[2022-02-06 23:08] VITALS: BP 123/66; PULSE 57; RESP 15
== END 2022-02-06 23:08 | disposition home or self-care (01) ==
LOC: EC 19:09
DX: I10 Essential (primary) hypertension (principal); N30.00 Acute cystitis without hematuria; K21.9 Gastro-esophageal reflux disease without esophagitis; Z79.899 Other long term (current) drug therapy; Z88.2 Allergy status to sulfonamides; Z88.8 Allergy status to other drugs, medicaments and biological substances; Z88.1 Allergy status to other antibiotic agents
CPT/HCPCS: 36415; 71046; 80048; 81001; 83735; 84484; 85025; 87086; 93005; 99284

== ENCOUNTER → 2025-02-28 | Outpatient (CLI) | payer MEDICARE, BC ==
[2025-02-28 13:17] LABS: African American GFR (CKD) 86 (>60 ml/min/1.73 sqM); Blood Urea Nitrogen 13 mg/dL (7-17); Non-African American GFR(CKD) 75 (>60 ml/min/1.73 sqM)
--- NOTE | 2025-02-28 14:00 | CT ---
CT chest with contrast. HISTORY: Neck swelling COMPARISON: None TECHNIQUE: Multiple axial images were obtained through the thorax following the uneventful administra tion of nonionic IV contrast material. FINDINGS: There is a 5.8 mm nodule in the right lower lobe posteriorly. There are a few scattered sub-6 mm juxt apleural nodules in the left lung. There is a micronodule in the left lower lobe There is no airspace consolidation or abnormal interstitial density. There is no pleural effusion, pleural thickening or pneumothorax. The great vessels the chest are normal. There is no mediastinal, hilar or axillary adenopathy. Limited scanning of the upper abdomen reveals scattered focal calcifications within the liver consist ent with hepatic granulomas. No focal osseous lesions are seen. IMPRESSION: 1. No suspicious lung mass or nodule. There are scattered sub-6 mm nodules. 2. No acute cardiopulmonary disease [facility], Workstation: AJ, 02/28/2025 1:58 PM
== END | disposition home or self-care (01) ==
LOC: RADCTMAIN 12:26
PROVIDERS: ATTEND Internal Medicine
DX: R22.1 Localized swelling, mass and lump, neck (principal)
CPT/HCPCS: 82565; 84520; 71260; 36415; Q9967